=== PATIENT | female | born 1950 | race African-American/Black ===

== ENCOUNTER 2016-05-25 13:01 | Inpatient (IN) | payer OTHER ==
[~2016-05-25] VITALS: Ht 180.3 cm; Wt 98.1 kg
[~2016-05-25 13:01] MED LIST: AMOXIL500 MG PO; ATORVASTATIN CA10 MG PO; AUGMENTIN 875 M1 TAB PO; CARVEDILOL3.125 MG PO; CATAPRES TTS TOP; CELEBREX100 MG PO; ECOTRIN81 MG PO; FUROSEMIDE20 MG PO; GABAPENTIN100 MG PO; GLIMEPIRIDE4 MG PO; JANUMET 1000 MG1 TAB PO; JANUVIA 100MG100 MG PO; LANTUS SOLOS100 U/ML PO; METFORMIN HYD1000 MG PO; MULTIVITAMIN1 TAB PO; NEURONTIN300 MG PO; PANTOPRAZOLE SO40 MG PO; PERCOCET 325 MG1 TA2 PO; PROTONIX 40MG T40 MG PO; SLOW FE45 MG PO; TYLENOL #31 TAB PO; UNIRETIC 25 MG-1 TAB PO
--- NOTE | 2016-05-25 13:11 | ED DYSPNEA/ASTHMA COMPLAINT ---
History of Present Illness General Chief Complaint: Dyspnea (COPD, CHF, Other) Stated Complaint: SOB Source: patient, old records Exam Limitations: no limitations Allergies Coded Allergies: NO KNOWN ALLERGIES (10/06/14) Reconcile Medications Carvedilol (Coreg) 12.5 MG TABLET 1 TAB PO BID HTN (Reported) Clonidine (Catapres) 0.2 MG TABLET 1 TAB PO DAILY HTN (Reported) Ferrous Sulfate (Feosol) 325 MG (65 MG IRON) TABLET 1 TAB PO DAILY IRON DEF. ANEMIA (Reported) Furosemide 20 MG TAB 1 TAB PO DAILY DIURETIC (Reported) Gabapentin (Neurontin) 300 MG CAP 1 CAP PO TID DIABETES (Reported) Glimepiride (Amaryl) 4 MG TABLET 1 TAB PO DAILY DIABETES (Reported) Loratadine (Claritin) 10 MG TABLET 1 TAB PO DAILY ALLERGIES (Reported) Montelukast Sodium (Singulair) 10 MG TABLET 1 TAB PO DAILY SOB (Reported) Pantoprazole Sodium (Protonix) 40 MG TAB 1 TAB PO DAILY GI (Reported) Triage Nurses Notes Reviewed? yes Onset: Gradual Duration: day(s): (3-4), constant Timing: recent history Severity: moderate Activities at Onset: activity, rest Prior Episodes/Possible Cause: occasional episodes Modifying Factors: Improves With: rest. Worsens With: movement. Associated Symptoms: weakness HPI: 65-year-old female with history of hypertension diabetes COPD presents to the ER today complaining of exertional dyspnea for the past 3-4 days associated with worsening leg edema and a 10 pound weight gain. She was recently taken off of her diuretic she states due to kidney problems. Patient states her dyspnea is worse with exertion and laying flat. She is not O2 dependent, she does not smoke. Symptoms are better at rest. 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 There are no other modifying factors or associated symptoms (VANESSA BENAVIDES) Vital Signs & Intake/Output Vital Signs & Intake/Output Vital Signs Date Time Temp Pulse Resp B/P Pulse O2 O2 Flow FiO2 Ox Delivery Rate 05/25 1631 96.6 63 18 199/75 99 Room Air 05/25 1451 93 Room Air 05/25 1320 160/84 05/25 1311 97.6 70 24 97 Room Air Past History Travel History Traveled to [place] past 21 day No Medical History Any Pertinent Medical History? see below for history EENT: NONE Cardiovascular: hypertension, hyperlipidemia Respiratory: bronchitis Gastrointestinal: GERD, APPENDICITIS Musculoskeletal: sciatica, ARTHRITIS LOW BACK PAIN WITH Endocrine: diabetes Blood Disorders: anemia Surgical History Surgical History: CYST REMOVAL FROM BREAST Psychosocial History What is your primary language [place]ian Tobacco Use: Quit >30 days ago Family History Family History, If Any: SON Hypertension SISTER FH: diabetes mellitus, Onset: 60+. FH: myocardial infarction Hx Contributory? No (VANESSA BENAVIDES) Review of Systems Review of Systems Constitutional: Reports: see HPI. All Other Systems: Reviewed and Negative Comments Review of systems: See HPI, All other systems negative. Constitutional, no chills no fever, no malaise HEENT: No visual changes no sore throat no congestion Cardiovascular: No chest pain , no palpitation Skin, no rashes, no change in skin Respiratory: No dyspnea no cough no sputum GI: No nausea no vomiting, no diarrhea, : No dysuria Muscle skeletal: No joint pain, no back pain, no neck pain, Neurologic: No numbness no headache Psych: No stress Heme/endocrine: No bruising no bleeding Immunology: No lymphadenopathy (VANESSA BENAVIDES) Physical Exam Physical Exam General Appearance: well developed/nourished, alert, awake Respiratory: normal breath sounds, chest non-tender Comments: Well-developed well-nourished person in no acute distress HEENT: Normal EENT exam; PERRL, EOMI, HEAD is atraumatic. moist mucous membranes. Neck: Supple, normal range of motioN Back: Nontender, Full range of motion Cardiovascular: Regular rate and rhythms no murmurs rubs Respiratory: No respiratory distress. Patient speaking in full complete sentences. Breath sounds clear to auscultation bilaterally: NO W/R/R Abdomen: Soft, nontender nondistended, no appreciable organomegaly. Normal bowel sounds. No rebound/guarding, Extremity: No edema, full range of motion of extremities Neuro: Alert oriented x3, motor sensory normal. There were no obvious focal neurologic abnormalities. Skin: No appreciable rash on exposed skin, skin is warm and dry. Psych: Mood and affect is normal, memory and judgment is normal. Core Measures ACS in differential dx? Yes Severe Sepsis Present: No Septic Shock Present: No (VANESSA BENAVIDES) Progress Differential Diagnosis: asthma, AMI, bronchitis, costochondritis, CHF, COPD, musculoskeletal pain, pericarditis, pulmonary embolism, pneumonia, pneumothorax, unstable angina Diagnostic Imaging: Viewed by Me: Radiology Read. Discussed w/RAD: Radiology Read. Radiology Impression: ATIENT: DWAYNE COX PRESENT AGE: 65 PATIENT ACCOUNT NO: [id number] : 52 LOCATION: [facility] ORDERING PHYSICIAN: VANESSA FIELD SERVICE DATE: 05/25/16 EXAM TYPE: RAD - XRY- PORTABLE CHEST XRAY EXAMINATION: XR PORTABLE CHEST CLINICAL INFORMATION: Dyspnea and leg swelling. Assess for congestive heart failure. COMPARISON: None. TECHNIQUE: Portable AP view of the chest was obtained. FINDINGS: The lung fuentes are well-expanded. There is no focal consolidation. The cardiac silhouette is enlarged. The central pulmonary vasculature is mildly prominent superiorly. There is no focal consolidation. No definite pleural effusions are seen. The aortic arch is calcified and unfolded. There are no acute osseous findings. IMPRESSION: 1. The study demonstrates a prominent cardiac silhouette and mild prominence of the central pulmonary vasculature, which can be consistent with congestive heart failure. 2. There is no focal consolidation. DICTATED BY: VALERIE FELIX MD DATE/TIME DICTATED:05/25/161418 SUPERVISOR BOAT OUTFITTING:TRACEY DATE/ TIME TRANSCRIBED:05/25/161418 CONFIDENTIAL, DO NOT COPY WITHOUT APPROPRIATE AUTHORIZATION. <Electronically signed in Other Vendor System> SIGNED BY: VALERIE FELIX MD 05/25/16 1424 Initial ED EKG: normal intervals, normal p-waves, normal QRS complex, normal sinus rhythm (70) Prior EKG: unchanged (02/2015) Rhythm Strip: normal sinus rhythm (VANESSA BENAVIDES) Plan of Care: Orders Procedure Date/time Status BASIC ELECTROLYTES PLUS BUN&CR 05/26 0600 Active Consistent Carbohydrate 3 05/25 D Active TROPONIN LEVEL 05/25 1930 Active EKG 05/25 1930 Active Pathway - chart 05/25 1543 Active House Staff 05/25 1543 Active Code Status 05/25 1543 Active Patient Data 05/25 1508 Active Misc Message 05/25 1507 Active ED Holding Orders 05/25 1507 Active Admit to inpatient 05/25 1507 Active Vital Signs 05/25 1507 Active Code Status 05/25 1507 Complete Intake & Output 05/25 1340 Active Telemetry/Orchestra Conductor 05/25 1313 Active TROPONIN LEVEL 05/25 1313 Complete PROTHROMBIN TIME 05/25 1313 Complete COMPREHENSIVE METABOLIC PANEL 05/25 1313 Complete CBC WITHOUT DIFFERENTIAL 05/25 1313 Complete B-TYPE NATRIURETIC PEP (BNP) 05/25 1313 Complete EKG 05/25 1310 Active Weight 05/25 UNK Active VTE Mechanical Prophylaxis 05/25 UNK Active Intake & Output 05/25 UNK Active ECHOCARDIOGRAM 05/25 UNK Active Current Medications Sig/Laure Start time Last Medication Dose Stop Time Status Admin Montelukast Sodium 10 MG AT BEDTIME 05/26 2200 AC (Singulair) Clonidine 0.2 MG DAILY 05/26 1000 AC (Catapres) Ferrous Sulfate 325 MG DAILY 05/26 1000 AC (Feosol) Omeprazole 40 MG DAILY AC 05/26 0700 AC (Prilosec) Carvedilol 12.5 MG BID 05/25 2200 AC (Coreg) Insulin Aspart 0 TIDAC 05/25 1700 AC (NovoLOG) Gabapentin 300 MG Q8 05/25 1613 AC (Neurontin) Acetaminophen 650 MG Q6P PRN 05/25 1545 AC (Tylenol) Heparin Sodium 5,000 UNIT Q8 05/25 1536 AC (Porcine) Laboratory Tests 05/25/16 1336: Anion Gap 9, Estimated GFR 50 L, BUN/Creatinine Ratio 33.6 H, Glucose 206 H, Calcium 9.6, Total Bilirubin 0.4, AST 13 L, ALT 24, Alkaline Phosphatase 119, Troponin I < 0.01, [id number]-I-[id number] Pept 854 H, Total Protein 6.8, Albumin 3.6 , Globulin 3.2, Albumin/Globulin Ratio 1.1, PT 13.5 H, INR 1.29 H, CBC w Diff NO MAN DIFF REQ, RBC 3.18 L, MCV 89.6, MCH 28.9, RDW 15.5 H, MPV 9.4, Gran % 65.8, Lymphocytes % 23.3, Monocytes % 8.3, Eosinophils % 2.0, Basophils % 0.6, Absolute Granulocytes 3.4, Absolute Lymphocytes 1.2, Absolute Monocytes 0.4, Absolute Eosinophils 0.1, Absolute Basophils 0, PUBS MCHC 32.3 L LABS ORDERED, OLD RECORDS REVIEWED. PTS H/H TODAY AT BASELINE DATING BACK THROUGH 2014, PT SPEAKING IN FULL COMPLETE SENTENCES AT THIS TIME. CASE D/W DR DEL TORO On repeat evaluation patient is resting comfortably. However with ambulation the patient's oxygen saturation dropped to 88% patient became no dyspneic improve with rest and discussed thoroughly of her lab results and need for admission case was discussed with Dr. GRAVES will admit (VANESSA BENAVIDES) Departure Departure Time of Disposition: 1509 Disposition: STILL A PATIENT Condition: Stable Clinical Impression Primary Impression: Acute exacerbation of CHF (congestive heart failure) Referrals: DESIRE SEBASTIAN APRN (PCP/Family) Departure Forms: Customer Survey General Discharge Information Admission Note Spoke With: VILMA GRAVES MD Documentation of Exam: Documentation of any treatments & extenuating circumstances including Concerns Regarding Discharge (functional status, medication knowledge or non-compliance, living conditions, etc.) that warrant an admission rather than observation: Trend labs cardiology consult IV diuresis premature discharge would BE medically harmful as the patient desaturated on room air with exertion to 88% (VANESSA BENAVIDES) PA/ANALOG DEVICE DESIGNER Co-Sign Statement Statement: ED Attending supervision documentation- [] I saw and evaluated the patient. I have also reviewed all the pertinent lab results and diagnostic results. I agree with the findings and the plan of care as documented in the PA's/ANALOG DEVICE DESIGNER's documentation. [X] I have reviewed the ED Record and agree with the PA's/ANALOG DEVICE DESIGNER's documentation. [] Additions or exceptions (if any) to the PAs/ANALOG DEVICE DESIGNER's note and plan are summarized below: [] (ALBERT BOWMAN,WHITLEY Rodriguez) Critical Care Note Critical Care Note Critical Care Time: non-applicable (VANESSA BENAVIDES)
[2016-05-25 13:45] LABS: ABSOLUTE BASOPHIL COUNT 0 /CUMM (0.0-0.2); ABSOLUTE EOSINOPHIL COUNT 0.1 /CUMM (0.0-0.7); ABSOLUTE MONOCYTE COUNT 0.4 /CUMM (0.10-0.60); BASOPHIL % 0.6 % (0.0-2.0); MEAN CORPUSCULAR HGB 28.9 PG (27.0-31.0); MEAN CORPUSCULAR HGB CONC 32.3 G/DL (33.0-37.0); PLATELET COUNT 241 /CUMM (130-400)
[2016-05-25 13:54] LABS: ABSOLUTE GRANULOCYTE CT 3.4 /CUMM (1.4-6.5); ABSOLUTE LYMPH COUNT 1.2 /CUMM (1.2-3.4); GRANULOCYTE % 65.8 % (42.2-75.2); HEMATOCRIT 28.5 % (37-47); MEAN CORPUSCULAR VOLUME 89.6 FL (81.0-99.0); MEAN PLATELET VOLUME 9.4 FL (7.4-10.4); RBC DISTRIBUTION WIDTH 15.5 % (11.5-14.5); RED BLOOD CELL CT 3.18 /CUMM (4.20-5.40); WHITE BLOOD CELL COUNT 5.2 /CUMM (4.8-10.8)
[2016-05-25 13:58] LABS: PT 13.5 SEC (9.4-12.5)
[2016-05-25] MEDS ORDERED: MONTELUKAST SOD10 M1 PO (14:19)
[2016-05-25] MEDS ORDERED: CATAPRES0.2 MG PO (14:19)
[2016-05-25] MEDS ORDERED: LEXAPRO10 M1 PO ×2 (14:19→17:51)
--- NOTE | 2016-05-25 14:24 | RADIOLOGY REPORT ---
EXAMINATION: XR PORTABLE CHEST CLINICAL INFORMATION: Dyspnea and leg swelling. Assess for congestive heart failure. COMPARISON: None. TECHNIQUE: Portable AP view of the chest was obtained. FINDINGS: The lung fuentes are well-expanded. There is no focal consolidation. The cardiac silhouette is enlarged. The central pulmonary vasculature is mildly prominent superiorly. There is no focal consolidation. No definite pleural effusions are seen. The aortic arch is calcified and unfolded. There are no acute osseous findings. IMPRESSION: 1. The study demonstrates a prominent cardiac silhouette and mild prominence of the central pulmonary vasculature, which can be consistent with congestive heart failure. 2. There is no focal consolidation.
--- NOTE | 2016-05-25 15:06 | History & Physical ---
SAMUEL BOWMAN,[facility] [place] [facility] [place]/25/16 1506: General Information and HPI MD Statement: I have seen and personally examined DWAYNE MACK and documented this H&P. The patient is a 65 year old F who presented with a patient stated chief complaint of dyspnea on exertion. Source of Information: patient, old records Exam Limitations: no limitations History of Present Illness: Ms. Mack is a morbidly obese 65 y/o F with PMHx of HTN, HLD and T2DM c/b retinopathy and neuropathy who presents with a 2-week history of leg swelling and a 2-day history of dyspnea on exertion and wheezing. Patient reports that approximately 2 weeks prior to current presentation she presented to her PCP with morning headaches that had been ongoing for 2 months. Blood work was performed which revealed abnormal kidney function and she was subsequently taken off the moexipril-HCTZ that she had been taking for multiple years. Since then, patient has noted worsening leg swelling as well as an approximately 15-lbs weight gain. For the past 4 days leading up to current presentation, patient has been feeling short of breath after walking only five feet. Patient has orthopnea at baseline and usually sleeps in the chair but orthopnea has worsened during this time. For the past two days patient has had two episodes of stinging chest pain lasting about half a second. She also endorses episodes of dizziness. She has a history of bronchitis and allergies and has chronic nasal congestion, post -nasal drip and cough productive of greyish sputum at baseline. Patient reports that in 1994 she was told that she has heart problems and advised to follow up with a catalogue maker but she never did. Family history is positive for IN and CHF in her sister who of heart disease in her 60s. Most recent ECHO was performed in September 2014 for pre-operative clearance for exploratory laparotomy and showed LVEF >65% and stage 1 diastolic dysfunction. She denies fever, chills , abdominal pain, nausea, vomiting or urinary symptoms. Allergies/Medications Allergies: Coded Allergies: NO KNOWN ALLERGIES (10/06/14) Home Med list Carvedilol (Coreg) 12.5 MG TABLET 1 TAB PO BID HTN (Reported) Clonidine (Catapres) 0.2 MG TABLET 1 TAB PO DAILY HTN (Reported) Escitalopram Oxalate (Lexapro) 10 MG TABLET 1.5 TAB PO AT BEDTIME depression (Reported) Ferrous Sulfate (Feosol) 325 MG (65 MG IRON) TABLET 1 TAB PO DAILY IRON DEF. ANEMIA (Reported) Furosemide 20 MG TAB 1 TAB PO DAILY DIURETIC (Reported) Gabapentin (Neurontin) 300 MG CAP 1 CAP PO TID DIABETES (Reported) Glimepiride (Amaryl) 4 MG TABLET 1 TAB PO DAILY DIABETES (Reported) Loratadine (Claritin) 10 MG TABLET 1 TAB PO DAILY ALLERGIES (Reported) Loratadine (Claritin) 10 MG TABLET 1 TAB PO DAILY ALLERGIES (Reported) Montelukast Sodium (Singulair) 10 MG TABLET 1 TAB PO DAILY SOB (Reported) Pantoprazole Sodium (Protonix) 40 MG TAB 1 TAB PO DAILY GI (Reported) Past History Travel History Traveled to [place] past 21 day No Medical History Neurological: peripheral neuropathy EENT: allergies, diabetic retinopathy Cardiovascular: hypertension, hyperlipidemia Respiratory: bronchitis Gastrointestinal: GERD, appendicitis, ventral hernia Renal: abnormal kidney function Musculoskeletal: sciatica, arthritis Psychiatric: depression Endocrine: diabetes Blood Disorders: anemia Surgical History Surgical History: appendectomy, hernia repair-ventral, cyst removal from breast, exploratory laparotomy Past Family/Social History Family History Relations & Conditions if any SON Hypertension SISTER, , Age 60+; Cause: Heart disease. FH: CHF (congestive heart failure) FH: diabetes mellitus, Onset: 60+. FH: myocardial infarction BROTHER FH: diabetes mellitus GRANDFATHER FH: diabetes mellitus Psychosocial History Where do you live? Home Who Do You Live With? self Services at Home: Home Health Aide Primary Language: Ivorian Smoking Status: Former Smoker (Quit 24 Yrs Ago, ~16 Pack-Yrs) ETOH Use: denies use (Quit 24 Years Ago) Illicit Drug Use: cocaine (Quit 24 Years Ago), marijuana (Quit 24 Years Ago) Functional Ability ADLs Independent: dressing, eating, toileting, bathing. Ambulation: cane IADLs Independent: finances, food prep, telephone, transportation, medication admin. Needs Assist: shopping, housework. 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 EENTM: Reports: nasal congestion. Denies: throat swelling. Cardiovascular: Reports: chest pain, orthopena, peripheral edema. Denies: palpitations. Respiratory: Reports: cough, sputum production (chronic). GI: Denies: abdominal pain, constipation, diarrhea, nausea, vomiting. Genitourinary: Reports: no symptoms. Musculoskeletal: Reports: no symptoms. Skin: Reports: no symptoms. Neurological/Psychological: Reports: no symptoms. Hematologic/Endocrine: Reports: no symptoms. Immunologic/Allergic: Reports: no symptoms. All Other Systems: Reviewed and Negative Exam & Diagnostic Data Last 24 Hrs of Vital Signs/I&O Vital Signs Date Time Temp Pulse Resp B/P Pulse O2 O2 Flow FiO2 Ox Delivery Rate 05/25 1451 93 Room Air 05/25 1320 160/84 05/25 1311 97.6 70 24 97 Room Air Physical Exam General Appearance Alert, Oriented X3, No Acute Distress HEENT Atraumatic, Mucous Membr. moist/pink Neck Supple, No JVD, No LAD Cardiovascular Regular Rate, Normal S1, Normal S2, Grade 2/6 Systolic Murmur Lungs Clear to Auscultation Abdomen Soft, No Tenderness, Positive Bowel Sounds Extremities No Clubbing, No Cyanosis, Trace Edema on Bilateral Lower Extremities and Changes Consistent with Chronic Venous Stasis Last 24 Hrs of Labs/Martinez: Laboratory Tests 05/25/16 1940: Troponin I < 0.01 05/25/16 1336: Anion Gap 9, Estimated GFR 50 L, BUN/Creatinine Ratio 33.6 H, Glucose 206 H, Calcium 9.6, Total Bilirubin 0.4, AST 13 L, ALT 24, Alkaline Phosphatase 119, Troponin I < 0.01, Anv-J-Btbfmnebtrb Pept 854 H, Total Protein 6.8, Albumin 3.6 , Globulin 3.2, Albumin/Globulin Ratio 1.1, Vitamin B12 > 1000 H, TSH 1.740, Free T4 1.10, PT 13.5 H, INR 1.29 H, CBC w Diff NO MAN DIFF REQ, RBC 3.18 L, MCV 89.6, MCH 28.9, RDW 15.5 H, MPV 9.4, Gran % 65.8, Lymphocytes % 23.3, Monocytes % 8.3, Eosinophils % 2.0, Basophils % 0.6, Absolute Granulocytes 3.4, Absolute Lymphocytes 1.2, Absolute Monocytes 0.4, Absolute Eosinophils 0.1, Absolute Basophils 0, PUBS MCHC 32.3 L Diagnostic Data EKG Results Normal sinus rhythm HR 62 T wave inversion in anterior leads, unchanged from prior QTc 459 CXR Results 1. The study demonstrates a prominent cardiac silhouette and mild prominence of the central pulmonary vasculature, which can be consistent with congestive heart failure. 2. There is no focal consolidation. Assessment/Plan Assessment: 65 y/o morbidly obese F with PMHx of HTN, HLD, T2DM c/b retinopathy and peripheral neuropathy who presents with a 2-week history of leg swelling and a 2 -day history of dyspnea on exertion and wheezing. #DEAL/leg edema: SOB could potentially represent mild CHF in view of associated leg edema and recent 15-lbs weight gain as well as significant risk factors including morbid obesity, T2DM, HLD and HTN, however patient does not any overt signs of volume overload on exam including crackles, JVD or significant lower extremity edema (only trace edema on exam) and proBNP is only 854. Most recent ECHO in September 2014 with LVEF >65% and stage 1 diastolic dysfunction. Other potential etiologies for the SOB include obstructive sleep apnea given reported history of difficulty breathing during sleep, ACS given episodes of fleeting chest pain, anemia given history of iron deficiency anemia and bronchitis. Leg edema could be secondary to CHF but could also represent chronic venous insufficiency. Currently satting >95% on room air. Troponin negative. EKG without ST-T wave abnormalities. * Admit to telemetry. * Cardiology consult in the AM. * Strict I/Os and daily weights. * Start Lasix 20 mg IV BID. * Monitor kidney function. * ECHO ordered to evaluate for cardiac structure and function. * Serial troponins and EKG to rule out ACS. * TRC and nebs. * Check ambulatory oxygen saturation. #HTN: BP elevated to 199/75. Takes carvedilol 12.5 mg PO BID and clonidine 0.2 mg PO daily. Moexipril-HCTZ recently stopped by PCP 2/2 abnormal kidney function. * Continue prior to admission medications carvedilol 12.5 mg PO BID and clonidine 0.2 mg PO daily. * Start lisinopril 10 mg PO daily in the AM in view of her history of diabetes. #Non-insulin dependent T2DM: Takes glimepride 4 mg PO daily as outpatient. * Hold oral hypoglycemic agents while inpatient. * Accu-checks and low dose sliding scale Novolog TIDAC. #Depression: * Continue prior to admission Lexapro 15 mg PO QHS. #Allergic rhinitis: * Continue prior to admission Claritin in the AM and Singulair 10 mg PO at bedtime. #Iron deficiency anemia: H/H 9.2/28.5 on admission which appears to be baseline for patient. * Continue prior to admission ferrous sulfate 325 mg PO daily. Diet: Consistent Carbohydrate 3 DVT PPx: HSQ and ALPs CODE: FULL As Ranked By This Provider Problem List: 1. Dyspnea on exertion 2. Hypertension 3. Hyperlipidemia 4. Bilateral lower extremity edema 5. Non-insulin dependent type 2 diabetes mellitus 6. Allergic rhinitis 7. Essential hypertension 8. Acute diastolic CHF (congestive heart failure) 9. (HFpEF) heart failure with preserved ejection fraction 10. Depression Core Measures/Miscellaneous Acute Coronary Syndrome ACS Diagnosis: No Cerebrovascular Accident CVA/TIA Diagnosis: No Congestive Heart Failure CHF Diagnosis: Yes Date of most recent Echo: 10/06/14 Last Known EF %: 65 (>65%) COLT/ARB for EF <40%: Yes (EF >65%) Venous Thromboembolism VTE Risk Factors: Acute medical illness, Age > 40, CHF or Resp failure, Obesity, Varicose veins [facility] prophylaxis d/t: No contraindications No VTE Pharm Prophylaxis d/t: No contraindications VTE Diagnosis: No VTE Type: NONE VTE Confirmed by (Test): NONE Severe Sepsis Severe Sepsis Present: No Septic Shock Septic Shock Present: No Miscellaneous Documentation Attending Case Discussed With: SHAYLA TAYLOR MD Primary Care Physician: DESIRE SEBASTIAN APRN Patient sees these Specialists N/A Level of Patient Care: Telemetry ALEXUS PHELPS MD 05/25/16 1752: Resident Review Statement Resident Statement: examined this patient, discussed with fall internship, agreed with fall internship, reviewed EMR data (avail), reviewed images, amended to note Other Findings: This is 65-year-old morbidly obese female with past medical history of hypertension, hyperlipidemia, diastolic heart failure, 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 Patient was evaluated by her PCP 2 weeks prior to admission and on routine blood workup noted abnormal kidney function and was told to stop taking ACEI/HCTZ. On follow-up appointment in one week patient noted gaining about 15 pounds (last weight was 310 pounds). Patient reports that for past 4 days she is more short of breath especially on exertion with 2 episode of 16 G chest pain which lasted for a few seconds and resolved spontaneously. Patient reports getting short of breath even after 5 feet ambulation which is new compared to her baseline. She also reports orthopnea which is chronic but claims has required to properly up her head position more for past few days. She also reported leg swelling and bilateral lower extremity heaviness. She also have baseline orthopnea and sleeps in chair but claims has to propt head level more for past 2 days. Denies any recent URI, palpitation, abd. pain, n/v/d, urinary symptoms. Her vitals on admission were T 97.6, HR 70, RR 24, BP 160/84, O2 sat 98% on room air. On physical exam patient is alert oriented 3 in no acute distress, HEENT PERRLA EOMI, neck supple without elevated JVD, lungs clear on auscultation, heart S1-S2 normal with grade 2/6 systolic ejection murmur at second right intercostal space radiating to bilateral carotids, abdomen soft nontender nondistended with preserved bowel sounds, trace peripheral edema, evidence of an large varicose vein, no focal gross neuro deficit. Labs were significant for H&H 9.2/28.5 (baseline 12/13.6 in November 2015), BUN 37, creatinine 1.1, blood glucose 206, troponin negative, proBNP 854, INR 1.29 Her EKG revealed normal sinus rhythm at rate of 62, previously noted T-wave inversion in anterior leads unchanged, QTC 459 Chest x-ray revealed prominent cardiac silhouette the and mild prominence of the central pulmonary vascular without any focal consolidation. Assessment and plan: This is 65 year old morbidly obese female with past medical history of hypertension, diastolic heart failure, hyperlipidemia, type 2 diabetes complicated with retinopathy and peripheral neuropathy, iron deficiency anemia, GERD presented with progressively worsening shortness of breath on exertion with associated 15 pound weight gain and lower extremity edema and orthopnea for past 4 days after stopping her COLT inhibitor HCTZ combination pill 2 weeks ago. 1. Shortness of breath Likely multifactorial including diastolic heart failure but possibility of underlying acute coronary event, sleep apnea resulting in right heart failure or physical deconditioning due to her morbid obesity cannot be ruled out Admit to telemetry - Continue IV Lasix 20 mg twice a day - Strict ARTURO's and daily weight - Echocardiogram - Cardiology consult - Serial troponin and EKG to rule out underlying ACS - Patient may need outpatient sleep study evaluation for possible underlying sleep apnea - TRC 2. Hypertension - Restart patient's home medication including Coreg 12.5 twice a day - Continue clonidine 0.2 mg daily - We'll consider to restart COLT inhibitor considering patient history of diabetes and not significant renal dysfunction - Monitor kidney function closely 3. Type 2 diabetes - Hold oral hypoglycemic agent - Start NovoLog sliding scale - Monitor blood sugar prior to meal 4. Peripheral diabetic neuropathy - Continue gabapentin 300 mg 3 times a day 5. History of allergic bronchitis - Continue Singulair - TRC 6. Depression Continue Lexapro 15 mg at bedtime 7. DVT prophylaxis Subcutaneous heparin 8. Full code SHAYLA TAYLOR MD 05/25/16 5857: Attending MD Review Statement Attending Statement Attending MD Statement: examined this patient, discuss w/resident/PA/ROLL WEIGHER, agreed w/resident/PA/ROLL WEIGHER, reviewed EMR data (avail), reviewed images, amended to note Attending Assessment/Plan: The patient is a 65 yo female with h/o DM2, HTN, diastolic dysfunction, & HL who presented on the day of admission with c/o 2 day h/o progressive exertional dyspnea with ?wheeze. She also noted increasing lower extremity edema in spite of po Furosemide. She saw here PCP recently and noted increased creatinine and her usual antihypertensive (univasc) was discontinued. Prior ECHO in 2014 did show some diastolic dysfunction with normal systolic function. She did describe some fleeting chest pain and orthopnea. Physical Exam: VS: 97.6, P 70, R 24, BP 160/84, PO 93% RA HEENT: eyes- PERRLA, EOMI gurvinder- dry mucosa Neck: no JVD or adenopathy Chest: diminished breath sounds diffusely, no wheeze, rhonchi or rales Abd: BS+, soft NT, obese Ext: tr-1+edema w/o tenderness, pulses 2+ Neuro: non-focal, alert & oriented x 3 Labs/Tests- as above. Impression/Plan: #Exertional Dyspnea- may be related to diastolic CHF, however concern regarding potential ischemia. Has no chest pain on my exam, however has had some fleeting pains that may be associated with exertion. Plan: Admit to telemetry. Check serial troponin I levels and EKG if any chest pain. Cardiology consult- seen by Dr. Ruiz previously . Check ambulatory pule oximetry. #CHF- presumed acute diastolic (EF preserved) CHF. The patient may also have right sided failure. Plan: Will treat with IV furosemide (given in ED) I/O's, daily weights CHF education. Check ECHO. Await Cardiology consult. #Essential HTN- on Carvedilol. Plan: Continue Carvedilol and follow. #DM2- on glimeprimide as OP. Plan: Will follow sugars via glucoscan and administer insulin as needed.
[2016-05-25 15:30] VITALS: BP 142/78
[2016-05-25] MEDS ORDERED: COREG12.5 M1 PO (16:10)
[2016-05-25] MEDS ORDERED: FEOSOL325 MG PO (16:11)
[2016-05-25] MEDS ORDERED: SINGULAIR10 M1 PO (16:12)
[2016-05-25] MEDS ORDERED: CLARITIN10 M1 PO (16:12)
[2016-05-25] MEDS ORDERED: AMARYL4 M1 PO (16:12)
--- NOTE | 2016-05-25 22:49 | Admission Certification ---
Admission Certification Certification Statement - As attending physician, I certify that at the time of - admission, based on clinical presentation, severity of - symptoms, need for further diagnostic testing and - therapeutic interventions, and risk of adverse outcomes - without in-hospital treatment, in my clinical assessment, - this patient requires an acute hospital stay for a minimum - of two nights or longer. I have also considered psychsocial - factors such as support system, advanced age, financial - issues, cognitive issues, and failed out-patient treatments, - past re-admission history, safety of patient, and lack of - compliance as applicable. Specific rationale supporting this admission is: The patient presents in the ED with progressive increasing exertional dyspnea along with lower extremity edema, elevated BNP and CXR c/w CHF. Will admit to telemetry and check troponin levels. IV Lasix, daily weights, Cardiology consult.
[2016-05-25 23:16] VITALS: BP 166/90
[2016-05-26 04:18] VITALS: BP 132/74
--- NOTE | 2016-05-26 07:33 | PN- Housestaff ---
See Addendum Subjective Follow-up For: Dyspnea on exertion Acute diastolic CHF Tele-Events Since Last Visit: Sinus rhythm HR 56-61 No overnight events Subjective: No acute events overnight. Patient seen and examined this morning. SOB has improved. Patient has been ambulating without significant dyspnea. She denies chest pain or palpitations. Results of recent lab work were obtained from Edis Barone APRN's office. Patient had BUN/creatinine 38/1.43 on 05/17/16. Ambulatory oxygen saturation was 97%. Review of Systems Constitutional: Reports: see HPI. Objective Last 24 Hrs of Vital Signs/I&O Vital Signs Date Time Temp Pulse Resp B/P Pulse O2 O2 Flow FiO2 Ox Delivery Rate 05/26 0418 98.2 62 20 132/74 100 Room Air 05/26 0000 96 Room Air 05/25 2316 98.6 65 24 166/90 96 Room Air 05/25 2256 60 166/90 05/25 1949 63 199/75 05/25 1900 Room Air Room Air 05/25 1631 96.6 63 18 199/75 99 Room Air 05/25 1530 99.1 64 20 142/78 100 Room Air 05/25 1451 93 Room Air 05/25 1320 160/84 05/25 1311 97.6 70 24 97 Room Air Intake & Output 05/26 1600 05/26 0800 05/26 0000 Intake Total 200 480 Output Total 400 Balance -200 480 Intake, Oral 200 480 Number 0 Bowel Movements Output, Urine 400 Patient 142.428 kg 129.274 kg Weight Physical Exam General Appearance: Alert, Oriented X3, No Acute Distress HEENT: Atraumatic, Mucous Membr. moist/pink Cardiovascular: Regular Rate, Normal S1, Normal S2 Lungs: Clear to Auscultation Abdomen: Soft, No Tenderness, Positive Bowel Sounds, Obese Extremities: No Clubbing, No Cyanosis, Trace Edema on Bilateral Lower Extremities Current Medications: Current Medications Sig/Laure Start time Last Medication Dose Route Stop Time Status Admin Acetaminophen 650 MG Q6P PRN 05/25 1545 AC PO Carvedilol 12.5 MG BID 05/25 2199 AC PO Carvedilol 12.5 MG ONCE ONE 05/25 1730 DC 05/25 PO 05/25 1730 194 Clonidine 0.2 MG DAILY 05/26 1000 AC PO Escitalopram Oxalate 15 MG AT BEDTIME 05/25 2199 AC 05/25 PO 2255 Ferrous Sulfate 325 MG DAILY 05/26 1000 AC PO Furosemide 0 .STK-MED ONE 05/25 1516 DC IV Furosemide 20 MG ONCE ONE 05/25 1515 DC 05/25 IV 05/25 1516 1518 Gabapentin 300 MG Q8 05/25 1613 AC 05/26 PO 0613 Heparin Sodium 5,000 UNIT Q8 05/25 1536 AC 05/26 (Porcine) SC 0613 Influenza Virus 0.5 ML ONCE ONE 05/25 2100 DC Vaccine IM 05/25 2101 Insulin Aspart 0 TIDAC 05/25 1700 AC 05/26 SC 0841 Lisinopril 10 MG DAILY 05/26 1000 AC PO Montelukast Sodium 10 MG AT BEDTIME 05/26 2200 AC PO Omeprazole 40 MG DAILY AC 05/26 0700 AC 05/26 PO 0613 Last 24 Hrs of Lab/Martinez Results Last 24 Hrs of Labs/Mics: Laboratory Tests 05/26/16 0636: Anion Gap 10, Estimated GFR 45 L, BUN/Creatinine Ratio 29.2 H 05/26/16 0100: Troponin I < 0.01 05/25/16 1940: Troponin I < 0.01 05/25/16 1336: Anion Gap 9, Estimated GFR 50 L, BUN/Creatinine Ratio 33.6 H, Glucose 206 H, Calcium 9.6, Total Bilirubin 0.4, AST 13 L, ALT 24, Alkaline Phosphatase 119, Troponin I < 0.01, Clo-A-Rwfvaeuycif Pept 854 H, Total Protein 6.8, Albumin 3.6 , Globulin 3.2, Albumin/Globulin Ratio 1.1, Vitamin B12 > 1000 H, TSH 1.740, Free T4 1.10, PT 13.5 H, INR 1.29 H, CBC w Diff NO MAN DIFF REQ, RBC 3.18 L, MCV 89.6, MCH 28.9, RDW 15.5 H, MPV 9.4, Gran % 65.8, Lymphocytes % 23.3, Monocytes % 8.3, Eosinophils % 2.0, Basophils % 0.6, Absolute Granulocytes 3.4, Absolute Lymphocytes 1.2, Absolute Monocytes 0.4, Absolute Eosinophils 0.1, Absolute Basophils 0, PUBS MCHC 32.3 L Orders ECHO Findings: 1. This was a technically difficult and limited study due to the patient's body habitus. 2. Aortic sclerosis is present with no valvular stenosis or insufficiency. 3. Mitral leaflet thickening is present with moderate anular calcfiication and mild mitral insufficiency with mild to moderate left atrial enlargement. 4. A very small pericardial effusion is present. 5. The left ventricular chamber size and systolic function appear normal. Moderate concentric hypertrophy is present with LV diastolic dysfunction. 6. The right heart structures were not optimally visualized. The RV systolic pressure could not be accurately assessed. Assessment/Plan Assessment: 65 y/o F with PMHx of HTN, T2DM and diastolic dysfunction who presents with progressively worsening dyspnea on exertion x2 days, likely secondary to acute diastolic CHF. #Acute diastolic CHF: SOB improved today. Patient continues to sat well on room air. Ambulatory sat 97%. ECHO with normal LVEF estimated at 60-65% and stage 3 diastolic dysfunction, worsened from prior ECHO in September 2014 with stage 1 diastolic dysfunction. Serial EKG and troponins negative. * Continue telemetry. * Cardiology consulted. Appreciate their recs. * Strict I/Os and daily weights. * Monitor kidney function. * Continue Lasix 20 mg IV BID. #HTN: BP continues to be high, elevated to a maximum of 180/90. * Continue prior to admission medications carvedilol 12.5 mg PO BID and clonidine 0.2 mg PO daily. * Continue lisinopril 10 mg PO daily. * Appreciate cardiology input on whether clonidine can be switched to another medication. #T2DM: Takes glimepride 4 mg PO daily as outpatient. * Hold oral hypoglycemic agents while inpatient. * Accu-checks and low dose sliding scale Novolog TIDAC. Diet: Consistent Carbohydrate 3 DVT PPx: HSQ and ALPs CODE: FULL Problem List: 1. Acute diastolic CHF (congestive heart failure) 2. Non-insulin dependent type 2 diabetes mellitus 3. Dyspnea on exertion 4. Essential hypertension 5. (HFpEF) heart failure with preserved ejection fraction Pain Ratin Pain Location: N/A Pain Goal: Remain pain free Pain Plan: Gabapentin 300 mg PO Q8 Tylenol 650 mg PO Q6H PRN for mild pain (scale 1-3) Tomorrow's Labs & Rationales: BMP to monitor lytes and kidney function in the setting of BRENDA and diuresis Discharge Plan Discharge Disposition: home Anticipated Discharge (Day): tomorrow
[2016-05-26 08:00] VITALS: BP 180/90
--- NOTE | 2016-05-26 11:34 | Cons- Cardiology ---
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 She presented to ER with complaint of bilateral lower extremity heaviness, breathing difficulty, wheezing and pounds weight gain in one week. Patient had blood work by PCP 2 weeks ago that showed worsening of renal function and she was advised to stop taking lisinopril/ hydrochlorothiazide, naproxen and Janumet. Patient was recently having upper respiratory symptoms and she was advised to drink a lot of water. Patient complains of intermittent sharp chest pain lasting for a few seconds. 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 According to patient she always avoid salt but recently drinking a lot of water because of upper respiratory tract infection. She has a strong family history of coronary artery disease in her grandmother and 2 brothers. Allergies/Medications Allergies: Coded Allergies: NO KNOWN ALLERGIES (10/06/14) Home Med List: Carvedilol (Coreg) 12.5 MG TABLET 1 TAB PO BID HTN (Reported) Clonidine (Catapres) 0.2 MG TABLET 1 TAB PO DAILY HTN (Reported) Escitalopram Oxalate (Lexapro) 10 MG TABLET 1.5 TAB PO AT BEDTIME depression (Reported) Ferrous Sulfate (Feosol) 325 MG (65 MG IRON) TABLET 1 TAB PO DAILY IRON DEF. ANEMIA (Reported) Furosemide 20 MG TAB 1 TAB PO DAILY DIURETIC (Reported) Gabapentin (Neurontin) 300 MG CAP 1 CAP PO TID DIABETES (Reported) Glimepiride (Amaryl) 4 MG TABLET 1 TAB PO DAILY DIABETES (Reported) Loratadine (Claritin) 10 MG TABLET 1 TAB PO DAILY ALLERGIES (Reported) Montelukast Sodium (Singulair) 10 MG TABLET 1 TAB PO DAILY SOB (Reported) Pantoprazole Sodium (Protonix) 40 MG TAB 1 TAB PO DAILY GI (Reported) Current Medications: Current Medications Sig/Laure Start time Last Medication Dose Route Stop Time Status Admin Acetaminophen 650 MG Q6P PRN 05/25 1545 AC 05/26 PO 0848 Carvedilol 12.5 MG BID 05/25 2200 AC 05/26 PO 0848 Carvedilol 12.5 MG ONCE ONE 05/25 1730 DC 05/25 PO 05/25 1731 1949 Clonidine 0.2 MG DAILY 05/26 1000 AC 05/26 PO 0848 Escitalopram Oxalate 15 MG AT BEDTIME 05/25 2200 AC 05/25 PO 2255 Ferrous Sulfate 325 MG DAILY 05/26 1000 AC 05/26 PO 0848 Furosemide 20 MG ONCE ONE 05/26 0900 DC IV 05/26 0901 Furosemide 0 .STK-MED ONE 05/25 1516 DC IV Furosemide 20 MG ONCE ONE 05/25 1515 DC 04/ IV 05/25 1516 1518 Gabapentin 300 MG Q8 05/25 1613 AC 05/26 PO 0613 Heparin Sodium 5,000 UNIT Q8 05/25 1536 AC 05/26 (Porcine) SC 0613 Influenza Virus 0.5 ML ONCE ONE 05/25 2100 DC Vaccine IM 05/25 2101 Insulin Aspart 0 TIDAC 05/25 1700 AC 05/26 SC 0841 Lisinopril 10 MG DAILY 05/26 1000 AC 05/26 PO 0848 Montelukast Sodium 10 MG AT BEDTIME 05/26 2200 AC PO Omeprazole 40 MG DAILY AC 05/26 0700 AC 05/26 PO 0613 Review of Systems Review of Systems Constitutional: Reports: see HPI. 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 FH: CHF (congestive heart failure) FH: diabetes mellitus, Onset: 60+. FH: myocardial infarction BROTHER FH: diabetes mellitus GRANDFATHER FH: diabetes mellitus Psychosocial History Where Do You Live? Home Who Do You Live With? self Services at Home: Home Health Aide Primary Language: Nepalese Smoking Status: Former Smoker (Quit 24 Yrs Ago, ~16 Pack-Yrs) ETOH Use: denies use (Quit 24 Years Ago) Illicit Drug Use: cocaine (Used To Smoke ), marijuana (Used to Smoke) Functional Ability ADLs Independent: dressing, eating, toileting, bathing. Ambulation: cane IADLs Independent: finances, food prep, telephone, transportation, medication admin. Needs Assist: shopping, housework. 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 Exam & Diagnostic Data Vital Signs and I&O Vital Signs Date Time Temp Pulse Resp B/P Pulse O2 O2 Flow FiO2 Ox Delivery Rate 05/26 0848 64 180/90 05/26 0848 64 180/90 05/26 0848 64 180/90 05/26 0800 98.2 59 20 180/90 99 Room Air 05/26 0418 98.2 62 20 132/74 100 Room Air 05/26 0000 96 Room Air 05/25 2316 98.6 65 24 166/90 96 Room Air 05/25 2256 60 166/90 05/25 1949 63 199/75 05/25 1900 Room Air Room Air 05/25 1631 96.6 63 18 199/75 99 Room Air 05/25 1530 99.1 64 20 142/78 100 Room Air 05/25 1451 93 Room Air 05/25 1320 160/84 05/25 1311 97.6 70 24 97 Room Air Intake & Output 05/26 1600 05/26 0800 05/26 0000 05/25 1600 05/25 0800 05/25 0000 Intake Total 200 480 Output Total 400 Balance -200 480 Intake, Oral 200 480 Number 0 Bowel Movements Output, Urine 400 Patient 314 lb 285 lb Weight Physical Exam General Appearance: well developed/nourished, no apparent distress, alert, awake , anxious Neck: normal inspection Respiratory: normal breath sounds, chest non-tender, lungs clear Cardiovascular: regular rate/rhythm Gastrointestinal: normal bowel sounds, soft, non-tender Extremities: trace edema B/L lower extremities, chronic venous stasis changes B/ L lower ext Diagnostic Data EKG Results regular rate with NSR. No acute ST-T wave changes CXR Results prominent cardiac silhouette and mild prominence of the central pulmonary vasculature. 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 She presented to ER with complaint of bilateral lower extremity heaviness, breathing difficulty, wheezing and pounds weight gain in one week. Her medications including lisinopril/ hydrodissect, naproxen and Janumet were stopped by PCP because of worsening kidney functions. She just had a renal ultrasound one day prior to admission. She has already been taking Lasix 20 mg daily. Her symptoms are most likely due to acute on chronic diastolic congestive heart failure most likely secondary to high blood pressure and drinking a lot of water lately. Her troponins 3 are negative and EKG did not show any acute ST-T wave changes. She has history of smoking and using marijuana and cocaine when she was young. Family history is positive for coronary artery disease in grandmother and 2 brothers. 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 Since admission her blood pressure has been on higher side. She was taking clonidine and Coreg at home for high blood pressure and lisinopril has also been restarted here in hospital. Her creatinine on admission was 1.1 and today it is 1.2 most likely secondary to getting IV Lasix. So far she has got 20 mg IV Lasix 2 since admission. PLAN * Monitor vitals closely especially blood pressure * Will get an echocardiogram * Continue Lasix IV 20 mg twice a day with closer monitoring of kidney functions Problem List: 1. Acute diastolic CHF (congestive heart failure) Consult Acknowledgment - Thank you for your consult request.
--- NOTE | 2016-05-26 12:20 | ECHOCARDIOGRAM REPORT ---
DWAYNE COX Age: 65 : 1950 Gender: F Exam Date: 05/25/2016 19:46 Exam Location: [address] Ht (in): 67 Wt (lb): 300 BSA: 2.61 BP: 199 / 75 Ordering Physician: ALEXUS PHELPS MD Referring Physician: ALEXUS PHELPS MD Technologist: Beata Drummond [facility] Room Number: 174-02 Indications: CONGENITAL HEART DISEASE Rhythm: Sinus Technical Quality: Poor, Very technically difficult study FINDINGS Left Ventricle Normal size left ventricle. No obvious regional wall motion abnormalities. Left ventricular wall thickness moderately increased. Mildly abnormal left ventricular ejection fraction estimated at 45- 50%. Normal left ventricular ejection fraction estimated at 60-65%. Restrictive filling pattern of the left ventricle for age (stage 3 diastolic dysfunction). Restrictive filling pattern of the left ventricle for age (stage 3 diastolic dysfunction). Right Ventricle Right ventricle not well visualized, grossly normal. Right Atrium Normal right atrial size. Left Atrium Mild to moderate left atrial dilatation. Mitral Valve Mitral valve thickened. Moderate mitral annular calcification. Trace to mild mitral regurgitation. Aortic Valve Diffuse thickening (sclerosis) of the aortic valve cusps without reduced excursion. No aortic stenosis. No aortic regurgitation. Tricuspid Valve Tricuspid valve not well visualized, grossly normal. Physiologic tricuspid regurgitation. Pulmonic Valve Pulmonic valve not well visualized. Pericardium Small pericardial effusion. Great Vessels Aortic root and proximal ascending aorta not well visualized, grossly normal. CONCLUSIONS 1. This was a technically difficult and limited study due to the patient's body habitus. 2. Aortic sclerosis is present with no valvular stenosis or insufficiency. 3. Mitral leaflet thickening is present with moderate anular calcfiication and mild mitral insufficiency with mild to moderate left atrial enlargement. 4. A very small pericardial effusion is present. 5. The left ventricular chamber size and systolic function appear normal. Moderate concentric hypertrophy is present with LV diastolic dysfunction. 6. The right heart structures were not optimally visualized. The RV systolic pressure could not be accurately assessed. Figueroa Nur M.D. (Electronically Signed) Final Date: 26 May 2016 12:19 MEASUREMENTS (Male / Female) Normal Values 2D ECHO LV Diastolic Diameter PLAX 4.8 cm 4.2 - 5.9 / 3.9 - 5.3 cm LV Systolic Diameter PLAX 2.9 cm 2.1 - 4.0 cm LV Fractional Shortening PLAX 39.6 % 25 - 46 % LV Ejection Fraction 2D Teich 70.0 % IVS Diastolic Thickness 1.5 cm LVPW Diastolic Thickness 1.5 cm LV Relative Wall Thickness 0.6 RV Internal Dim ED PLAX 3.2 cm 1.9 - 3.8 cm LVOT Diameter 1.9 cm Aortic Root Diameter 2.9 cm LA Systolic Diameter LX 4.3 cm 3.0 - 4.0 / 2.7 - 3.8 cm LA Volume 39.0 cm 18 - 58 / 22 - 52 cm Ascending Aorta Diameter 3.3 cm DOPPLER AV Peak Velocity 149.0 cm/s AV Peak Gradient 8.9 mmHg AV Mean Velocity 102.0 cm/s AV Mean Gradient 5.0 mmHg AV Velocity Time Integral 38.2 cm LVOT Peak Velocity 118.0 cm/s LVOT Peak Gradient 5.6 mmHg LVOT Mean Velocity 75.3 cm/s LVOT Mean Gradient 3.0 mmHg LVOT Velocity Time Integral 27.3 cm LVOT Stroke Volume 77.4 cm AV Area Cont Eq vti 2.0 cm AV Area Cont Eq pk 2.2 cm MV Peak Velocity 183.0 cm/s MV Peak Gradient 13.4 mmHg MV Mean Velocity 108.0 cm/s MV Mean Gradient 5.0 mmHg Mitral E Point Velocity 116.0 cm/s Mitral A Point Velocity 154.0 cm/s Mitral E to A Ratio 0.8 MV PHT Velocity 155.0 cm/s MV Deceleration Mcmullen 607.0 cm/s MV Pressure Half Time 76.6 ms MV Area PHT 2.9 cm MV Deceleration Time 185.0 ms PV Peak Velocity 114.0 cm/s PV Peak Gradient 5.2 mmHg PV Mean Velocity 79.8 cm/s PV Mean Gradient 3.0 mmHg PV Velocity Time Integral 27.5 cm LV E' Lateral Velocity 5.7 cm/s Mitral E to LV E' Lateral Ratio 20.5 LV E' Septal Velocity 4.2 cm/s Mitral E to LV E' Septal Ratio 27.7
[2016-05-26] MEDS ORDERED: CLARITIN10 M1 PO (14:04)
[2016-05-26 15:03] VITALS: BP 162/70
[2016-05-26 15:30] VITALS: BP 180/80
[2016-05-26 18:23] VITALS: BP 140/80
[2016-05-26 22:52] VITALS: BP 148/80
--- NOTE | 2016-05-27 07:27 | PN- Housestaff ---
See Addendum Subjective Follow-up For: Dyspnea on exertion Acute diastolic CHF Tele-Events Since Last Visit: Sinus rhythm HR 55-63 No overnight events Subjective: No acute events overnight. Patient seen and examined this morning. SOB has improved. She complains of pain in her legs which she feels could be secondary to her arthritis or peripheral artery disease. She reports that she received an intervention by vascular surgery at [facility] previously, which did not help her symptoms. She was previously taking Naproxen for joint pain from arthritis which was discontinued 2 weeks ago secondary to impaired kidney function. Review of Systems Constitutional: Reports: see HPI. Objective Last 24 Hrs of Vital Signs/I&O Vital Signs Date Time Temp Pulse Resp B/P Pulse O2 O2 Flow FiO2 Ox Delivery Rate 05/27 09 97.9 81 20 170/80 05/27 0917 81 170/80 05/27 0917 81 20 170/80 05/27 0800 97.9 81 20 170/80 97 Room Air 05/26 2252 98.7 57 20 148/80 98 Room Air 05/26 2233 61 160/74 05/26 1823 140/80 Intake & Output 05/27 1600 05/27 0800 05/27 0000 Intake Total 120 340 Output Total 500 250 400 Balance -500 -130 -60 Intake, Oral 120 340 Output, Urine 500 250 400 Patient 98.089 kg Weight Physical Exam General Appearance: Alert, Oriented X3, No Acute Distress HEENT: Atraumatic, Mucous Membr. moist/pink Neck: Supple Cardiovascular: Regular Rate, Normal S1, Normal S2 Lungs: Clear to Auscultation Abdomen: Soft, No Tenderness, Positive Bowel Sounds, Obese Extremities: Trace Edema and Skin Changes Consistent with Chronic Venous Stasis on Bilateral Lower Extremities Current Medications: Current Medications Sig/Laure Start time Last Medication Dose Route Stop Time Status Admin Acetaminophen 650 MG Q6P PRN 05/25 1545 DCD 05/26 PO 0848 Carvedilol 12.5 MG BID 05/25 2199 DCD 05/27 PO 0918 Clonidine 0.2 MG DAILY 05/26 1000 DCD 05/27 PO 0917 Escitalopram Oxalate 15 MG AT BEDTIME 05/25 2199 DCD 05/26 PO 2225 Ferrous Sulfate 325 MG DAILY 05/26 1000 DCD 05/27 PO 09 Furosemide 20 MG 7:30 AM, & 4:30 PM 05/26 1630 DCD 05/27 IV 1144 Gabapentin 300 MG Q8 05/25 1613 DCD 05/27 PO 0645 Heparin Sodium 5,000 UNIT Q8 05/25 1536 DCD 05/27 (Porcine) SC 0644 Insulin Aspart 0 TIDAC 05/25 1700 DCD 05/27 SC 1143 Lisinopril 10 MG DAILY 05/26 1000 DCD 05/27 PO 0917 Loratadine 10 MG DAILY 05/26 1406 DCD 05/27 PO 0917 Montelukast Sodium 10 MG AT BEDTIME 05/26 2200 DCD 05/26 PO 2225 Omeprazole 40 MG DAILY AC 05/26 0700 DCD 05/27 PO 0645 Oxycodone/ 1 TAB Q6P PRN 05/27 0830 DC 05/27 Acetaminophen PO 0916 Last 24 Hrs of Lab/Martinez Results Last 24 Hrs of Labs/Mics: Laboratory Tests 05/27/16 0630: Anion Gap 8, Estimated GFR 38 L, BUN/Creatinine Ratio 28.6 H Assessment/Plan Assessment: 65 y/o F with PMHx of HTN, T2DM and diastolic dysfunction who presents with progressively worsening dyspnea on exertion x2 days, likely secondary to acute diastolic CHF. #Acute diastolic CHF: SOB improved significantly since admission with IV diuresis. ECHO with normal LVEF estimated at 60-65% and stage 3 diastolic dysfunction, worsened from prior ECHO in September 2014 with stage 1 diastolic dysfunction. * Discharge home today. * Outpatient referral for Dr. Nur provided on discharge. * Continue prior to admission Lasix 20 mg PO daily on discharge. #HTN: BP continues to be elevated, 170/80 today. * Continue carvedilol 12.5 mg PO BID and clonidine 0.2 mg PO daily on discharge. * Lisinopril increased to 20 mg PO daily on discharge. * Patient will have BMP checked one week after discharge (06/03/16) and forward results to PCP and bath house attendant who will adjust medications accordingly based on kidney function. #Leg pain: Likely secondary to arthritis and peripheral artery disease. * Follow up with primary care physician who can make further recommendations. * Patient will take extra strength Tylenol 1-2 tabs QID PRN for pain on discharge. * Patient instructed to apply Voltaren gel QID to knees on discharge. Diet: Consistent Carbohydrate 3 DVT PPx: HSQ and ALPs CODE: FULL Problem List: 1. Acute diastolic CHF (congestive heart failure) 2. (HFpEF) heart failure with preserved ejection fraction 3. Essential hypertension 4. Arthritis pain 5. PAD (peripheral artery disease) Pain Ratin Pain Location: Legs Pain Goal: Pain 4 or less Pain Plan: 1-2 tabs of extra strength Tylenol QID PRN Tomorrow's Labs & Rationales: None Discharge Plan Discharge Disposition: home Stable for Discharge? Yes Anticipated Discharge (Day): today
[2016-05-27 08:00] VITALS: BP 170/80
--- NOTE | 2016-05-27 08:37 | Patient Discharge Instructions ---
Discharge Instructions General Discharge Information You were seen/treated for: Acute diastolic congestive heart failure Watch for these problems: Sudden weight gain Worsening shortness of breath Swelling in your legs, ankles or abdomen Dizziness or fainting Chest pain Special Instructions: Please follow up with your primary care physician Edis Barone APRN and crop pest control specialist Dr. Demetris Nur within one week of discharge. Please have your blood work checked on 06/03/16 and forward results to your primary care physician and crop pest control specialist. Take all medications as prescribed. Diet Recommended Diet: Diabetic (No Added Salt) Activity Full Activity/No Limits: Yes Acute Coronary Syndrome Inclusion Criteria At DC or during hospital stay patient has or had the following: ACS DIAGNOSIS No Discharge Core Measures Meds if any: Prescribed or Continued at Discharge Meds if any: NOT Prescribed or Continued at Discharge Congestive Heart Failure Inclusion Criteria At DC or during hospital stay patient has or had the following: CHF DIAGNOSIS Yes Discharge Core Measures Meds if any: Prescribed or Continued at Discharge COLT/ARB for EF <40% Yes (EF estimated at 60-65%) Meds if any: NOT Prescribed or Continued at Discharge Cerebrovascular accident Inclusion Criteria At DC or during hospital stay patient has or had the following: CVA/TIA Diagnosis No Discharge Core Measures Meds if any: Prescribed or Continued at Discharge Meds if any: NOT Prescribed or Continued at Discharge Venous thromboembolism Inclusion Criteria VTE Diagnosis No VTE Type NONE VTE Confirmed by (Test) NONE Discharge Core Measures - Per Current guidelines, there needs to be overlap - treatment for the first 5 days of Warfarin therapy. - If discharged on Warfarin prior to 5 days of - overlap therapy, the patient will need to be - assessed for post discharge needs including - *Post discharge parental anticoagulation - *Warfarin and/or parental anticoagulation education - *Follow up date to check INR post discharge At least 5 days overlap therapy as Inpatient No Meds if any: Prescribed or Continued at Discharge Note: Overlap Therapy is Warfarin and Anticoagulant Meds if any: NOT Prescribed or Continued at Discharge
--- NOTE | 2016-05-27 08:45 | PN- Student ---
Subjective Subjective: Medical Student Daily Progress Note: Sonja Mack is a 65 yo F with a PMH significant for HTN, type 2 DM, and stage 1 diastolic dysfunction (2014), who presented to the ED on 05/25/16 with a 2 week history of leg swelling and a 4 day history of dyspnea on exertion. She was subsequently admitted for a CHF exacerbation. Since admission, she has been improving. She states she has less difficulty with breathing than she did on admission, and feels her swelling in her legs has decreased. Overnight, she denies any CP, SOB, dizziness, N/V, or increase in swelling. Her only complaint is joint pain 2/2 arthritis. There were no acute events overnight. She appears comfortable and in good spirits. Relevant Admission labs/imaging: PT: 13.5 INR: 1.29 BUN: 37 Cr: 1.1 glucose: 206 Pro-BNP: 854 Troponins: negative Echo: moderate increase in LV wall thickness, EF 45-50% (compared to 65% in 2015 ), restrictive stage 3 diastolic dysfunction (compared to stage 1 in 2015), mild to moderate left atrium dilatation, mitral valvue thickening and moderate annular calcifcation with trace to mild regurgitation, aortic sclerosis, small pericardial effusion. Current Medications Sig/Laure Start time Last Medication Dose Route Stop Time Status Admin Acetaminophen 650 MG Q6P PRN 05/25 1545 DCD 05/26 PO 0848 Carvedilol 12.5 MG BID 05/25 2200 DCD 05/27 PO 0918 Clonidine 0.2 MG DAILY 05/26 1000 DCD 05/27 PO 0917 Escitalopram Oxalate 15 MG AT BEDTIME 05/25 2200 DCD 05/26 PO 2225 Ferrous Sulfate 325 MG DAILY 05/26 1000 DCD 05/27 PO 0917 Furosemide 40 MG .STK-MED ONE 05/26 1716 DC IV 05/26 1717 Furosemide 20 MG 7:30 AM, & 4:30 PM 05/26 1630 DCD 05/27 IV 1144 Gabapentin 300 MG Q8 05/25 1613 DCD 05/27 PO 0645 Heparin Sodium 5,000 UNIT Q8 05/25 1536 DCD 05/27 (Porcine) SC 0644 Insulin Aspart 0 TIDAC 05/25 1700 DCD 05/27 SC 1143 Lisinopril 10 MG DAILY 05/26 1000 DCD 04/14 PO 0917 Loratadine 10 MG DAILY 05/26 1406 DCD 05/27 PO 0917 Montelukast Sodium 10 MG AT BEDTIME 05/26 2200 DCD 05/26 PO 2225 Omeprazole 40 MG DAILY AC 05/26 0700 DCD 05/27 PO 0645 Oxycodone/ 1 TAB Q6P PRN 05/27 0830 DC 05/27 Acetaminophen PO 0916 Objective Objective: Physical Exam: Vital Signs Date Time Temp Pulse Resp B/P Pulse O2 O2 Flow FiO2 Ox Delivery Rate 05/27 0918 97.9 81 20 170/80 05/27 0917 81 170/80 05/27 0917 81 20 170/80 05/27 0800 97.9 81 20 170/80 97 Room Air 05/26 2252 98.7 57 20 148/80 98 Room Air 05/26 2233 61 160/74 05/26 1823 140/80 05/26 1530 98.4 58 20 180/80 97 Room Air 05/26 1503 162/70 97 Intake & Output 05/27 1600 05/27 0800 05/27 0000 Intake Total 120 340 Output Total 500 250 400 Balance -500 -130 -60 Intake, Oral 120 340 Output, Urine 500 250 400 Patient 216 lb Weight General: Comfortable, sitting on the side of the bed Neuro: A&O x3, moves all extremities spontaneously CV: RRR, S1,S2; no murmurs. Pulmonary: CTA, no evidence of wheezing or crackles GI: abdomen soft, non tender. bowel sounds present and normoactive. Midline scar noted. Extremities: BLE edema improving, trace non-pitting. All extremities well perfused. Results Results: Laboratory Tests 05/27/16 0630: 05/26/16 0100: Troponin I < 0.01 05/25/16 1940: Troponin I < 0.01 Assessment/Plan Assessment: Sonja Mack is a 65yo F with a PMH significant for HTN, DM type 2, and diastolic dysfunction, who presented to the ED on 05/25/16 for a 2 week history of leg swelling and a 4 day history of dyspnea on exertion. She has been improving since admission, is medically stable, and will likely be discharged home today. Plan: Acute on Chronic diastolic CHF: The patient has received Lasix on this admission , with significant diuresis. Fluid balance on 05/26/16 was negative (-) 380 mL. Lower extremity edema has decreased and dyspnea has improved. No s/s of fluid overload are evident. * Continue Lasix 20 mg BID while inpatient, with daily renal function monitoring. * Lasix 20 mg po daily as outpatient with close renal function monitoring, per cardiology * Continue Clonidine and Carvedilol home dosing * Increase Lisinopril to 20 mg daily per cardiology * Educate patient on lifestyle modifications, including salt restriction, fluid restriction, daily weights, dietary changes, exercise * Follow up with cardiology as outpatient HTN: has been hypertensive since admission. Medications restarted and continued vitals monitoring. * continue vitals monitoring. * continue home meds as above * Follow up with PCP and cardiology upon discharge Type 2 DM: Admission glucose was significantly elevated at 206 mg/dL. Low dose SSI with Novolog has been initiated with improvement. * Continue glimepiride on discharge * Continue SSI during inpatient, with finger sticks AC * Educate on lifestyle changes, including carb counting, exercise, and diet modifications Arthritis: previously on Naproxen, which was discontinued ~2 weeks ago 2/2 impaired renal function. Has been switched to extra strength tylenol as inpatient * Extra strength Tylenol, 2 tabs, qid as needed for arthritic pain * Start Voltaren gel as inpatient, continue use as outpatient * Recommend follow up with PCP and/or corporate health consultant to discuss further options Diet: Carb control DVT prophylaxis: HSQ 5000u Code status: Full code Pain Control: Acetaminophen extra strength; Voltaren gel for arthritic joints
[2016-05-27 09:18] VITALS: BP 170/80
[2016-05-27] MEDS ORDERED: LISINOPRIL20 M1 PO (10:47)
[2016-05-27] MEDS ORDERED: TYLENOL EXTRA500 M2 PO (10:49)
[2016-05-27] MEDS ORDERED: VOLTAREN100 GM TOP (10:55)
--- NOTE | 2016-05-27 13:14 | PN- Cardiology ---
Subjective Subjective: Clinically improved. Likely discharge today. No new symptoms. Objective Vital Signs and I&Os Vital Signs Date Time Temp Pulse Resp B/P Pulse O2 O2 Flow FiO2 Ox Delivery Rate 05/27 0918 97.9 81 20 170/80 05/27 0917 81 170/80 05/27 0917 81 20 170/80 05/27 0800 97.9 81 20 170/80 97 Room Air 05/26 2252 98.7 57 20 148/80 98 Room Air 05/26 2233 61 160/74 05/26 1823 140/80 05/26 1530 98.4 58 20 180/80 97 Room Air 05/26 1503 162/70 97 Intake & Output 05/27 1600 05/27 0800 05/27 0000 05/26 1600 05/26 0000 Intake Total 120 340 480 200 480 Output Total 250 400 600 400 Balance -130 -60 -120 -200 480 Intake, Oral 120 340 480 200 480 Number 0 Bowel Movements Output, Urine 250 400 600 400 Patient 216 lb 314 lb 285 lb Weight Physical Exam: General Appearance: well developed/nourished, no apparent distress, alert, awake , anxious Neck: normal inspection Respiratory: normal breath sounds, chest non-tender, lungs clear Cardiovascular: regular rate/rhythm Gastrointestinal: normal bowel sounds, soft, non-tender Extremities: trace edema B/L lower extremities, chronic venous stasis changes B/ L lower e Current Medications: Current Medications Sig/Laure Start time Last Medication Dose Route Stop Time Status Admin Acetaminophen 650 MG Q6P PRN 05/25 1545 AC 05/26 PO 0848 Carvedilol 12.5 MG BID 05/25 2199 AC 05/27 PO 0918 Clonidine 0.2 MG DAILY 05/26 1000 AC 05/27 PO 0917 Escitalopram Oxalate 15 MG AT BEDTIME 05/25 2199 AC 05/26 PO 2225 Ferrous Sulfate 325 MG DAILY 05/26 1000 AC 05/27 PO 0917 Furosemide 40 MG .STK-MED ONE 05/26 1716 DC IV 05/26 171 Furosemide 20 MG 7:30 AM, & 4:30 PM 05/26 1630 AC 05/27 IV 1144 Gabapentin 300 MG Q8 05/25 1613 AC 05/27 PO 0645 Heparin Sodium 5,000 UNIT Q8 05/25 1536 AC 05/27 (Porcine) SC 0644 Insulin Aspart 0 TIDAC 05/25 1700 AC 05/27 SC 1143 Lisinopril 10 MG DAILY 05/26 1000 AC 05/27 PO 0917 Loratadine 10 MG DAILY 05/26 1406 AC 05/27 PO 0917 Montelukast Sodium 10 MG AT BEDTIME 05/26 2200 AC 05/26 PO 2225 Omeprazole 40 MG DAILY AC 05/26 0700 AC 05/27 PO 0645 Oxycodone/ 1 TAB Q6P PRN 05/27 0830 DC 05/27 Acetaminophen PO 0916 Results Last 48 Hrs of Labs/Mics: Laboratory Tests 05/27/16 0630: Anion Gap 8, Estimated GFR 38 L, BUN/Creatinine Ratio 28.6 H 05/26/16 0636: Anion Gap 10, Estimated GFR 45 L, BUN/Creatinine Ratio 29.2 H 05/26/16 0100: Troponin I < 0.01 05/25/16 1940: Troponin I < 0.01 05/25/16 1336: Anion Gap 9, Estimated GFR 50 L, BUN/Creatinine Ratio 33.6 H, Glucose 206 H, Calcium 9.6, Total Bilirubin 0.4, AST 13 L, ALT 24, Alkaline Phosphatase 119, Troponin I < 0.01, Roc-D-Kqgdkrlpwzs Pept 854 H, Total Protein 6.8, Albumin 3.6 , Globulin 3.2, Albumin/Globulin Ratio 1.1, Vitamin B12 > 1000 H, TSH 1.740, Free T4 1.10, PT 13.5 H, INR 1.29 H, CBC w Diff NO MAN DIFF REQ, RBC 3.18 L, MCV 89.6, MCH 28.9, RDW 15.5 H, MPV 9.4, Gran % 65.8, Lymphocytes % 23.3, Monocytes % 8.3, Eosinophils % 2.0, Basophils % 0.6, Absolute Granulocytes 3.4, Absolute Lymphocytes 1.2, Absolute Monocytes 0.4, Absolute Eosinophils 0.1, Absolute Basophils 0, PUBS MCHC 32.3 L Assessment/Plan Assessment/Plan Assessment: 1. Probable acute on chronic HFpEF 2. Hypertension 3. Hyperlipidemia 4. Diabetes 5. GERD 6. Chronic anemia Recommendations: -The patient is doing somewhat better today after diuresing gently over the last several days. -Continue current medication regimen. -The patient's blood pressure remains mildly elevated. I would likely consider increasing her lisinopril to 20 mg daily with close monitoring of her renal function as an outpatient. -Continue Lasix 20 mg daily at discharge -Continue carvedilol at current dose. -I will follow-up with the patient in the office in a few weeks. Continue telemetry? No
--- NOTE | 2016-05-27 14:07 | Discharge Summary ---
See Addendum Visit Information Visit Dates Admission Date: 05/25/16 Discharge Date: 05/27/16 Hospital Course Course Attending Physician: DEMETRIS TAYLOR MD Primary Care Physician: EDIS SEBASTIAN APRN Consulting Request: Consulting Specialty: Cardiology Consulting Physician: Demetris Merino MD Reason for Consult: CHF exacerbation Hospital Course: Ms. Mack is a morbidly obese 65 y/o F with PMHx of HTN, HLD and T2DM c/b retinopathy, neuropathy and CKD who presented with a 2-week history of leg swelling and a 2-day history of dyspnea on exertion and wheezing, as well as orthopnea and fleeting chest pain. On initial presentation vitals were remarkable for tachypnea to 24 and elevated blood pressure to 160/84 which later increased to 199/75. SpO2 was 97% on room air. On exam, patient had trace to 1+ edema on bilateral lower extremities, however lungs were clear and there was no JVD. Labs were remarkable for BUN/Cr 37/1.1 and proBNP 854. CXR showed enlarged cardiac silhouette and mild prominence of the central pulmonary vasculature consistent with congestive heart failure. Patient was admitted for acute diastolic CHF. Below are the issues that were addressed during current admission : #Acute diastolic CHF: Patient was diuresed with Lasix 20 mg IV BID with significant improvement of shortness of breath and leg swelling. Serial EKGs and troponins were obtained to rule out ACS in the setting of fleeting chest pain and were negative. ECHO was performed which showed normal LVEF estimated at 60- 65% and stage 3 diastolic dysfunction, worsened from prior ECHO in September 2014 with stage 1 diastolic dysfunction. CHF teaching was provided. * Patient was given outpatient referral for blanket winder operator Dr. Merino and instructed to follow up with him within one week of discharge. * Patient will continue prior to admission Lasix 20 mg PO daily on discharge. #HTN: Patient had been taking moexipril-HCTZ up which was stopped by her PCP secondary to impaired kidney function (BUN/creatinine 38/1.43) one week prior to current presentation. Patient was started on lisinopril during this admission in view of her elevated blood pressures and CKD 2/2 diabetes. * Patient will continue prior to admission carvedilol 12.5 mg PO BID and clonidine 0.2 mg PO daily, as well as lisinopril 20 mg PO daily started while inpatient on discharge. #BRENDA on CKD: Creatinine had increased to 1.4 on day of discharge, likely secondary to diuresis. * Patient was instructed to have her BMP checked one week after discharge () and forward results to her PCP and blanket winder operator who will adjust her antihypertensive medications based on kidney function. #Leg pain: Patient complained of significant leg pain throughout admission, which was felt to be secondary to arthritis and peripheral artery disease. * Patient was instructed to follow up with her PCP for further evaluation and management. * Patient will take extra strength Tylenol 1-2 tabs QID PRN for pain and apply Voltaren gel QID to knees. Prescriptions were provided. Allergies: Coded Allergies: NO KNOWN ALLERGIES (10/06/14) Disposition Summary Disposition Principal Diagnosis: Acute diastolic congestive heart failure Additional Diagnosis: BRENDA on CKD Discharge Disposition: home or self care Discharge Instructions General Discharge Information Code Status: Full Code Patient's Diet: Diabetic (No Added Salt) Patient's Activity: Full Activity/No Limits Follow-Up Instructions/Appts: Please follow up with your primary care physician Edis Sebastian APRN and blanket winder operator Dr. Demetris Merino within one week of discharge. Please have your blood work checked on 06/03/16 and forward results to your primary care physician and blanket winder operator. Take all medications as prescribed. Medications at Discharge Discharge Medications: Continue taking these medications: Gabapentin (Neurontin) 300 MG CAP 1 Capsule ORAL THREE TIMES DAILY Qty = 90 Comments: PER PT Furosemide (Furosemide) 20 MG TAB 1 Tablet ORAL DAILY Comments: PER PT Pantoprazole Sodium (Protonix) 40 MG TAB 1 Tablet ORAL DAILY Qty = 14 Comments: PER PT Clonidine (Catapres) 0.2 MG TABLET 1 Tablet ORAL DAILY Comments: Last Taken:05/27/16 Time:09:17A.M Carvedilol (Coreg) 12.5 MG TABLET 1 Tablet ORAL TWICE DAILY Comments: Last Taken:05/27/16 Time:09:17A.M Ferrous Sulfate (Feosol) 325 MG (65 MG IRON) TABLET 1 Tablet ORAL DAILY Comments: Last Taken:05/27/16 Time:09:17A.M Loratadine (Claritin) 10 MG TABLET 1 Tablet ORAL DAILY Comments: Last Taken:05/27/16 Time:9:17A.M Montelukast Sodium (Singulair) 10 MG TABLET 1 Tablet ORAL DAILY Comments: Last Taken:05/27/16 Time:9:17A.M Glimepiride (Amaryl) 4 MG TABLET 1 Tablet ORAL DAILY Comments: Last Taken:NOT GIVEN THIS ADMISSION Time: Escitalopram Oxalate (Lexapro) 10 MG TABLET 1.5 Tablet ORAL AT BEDTIME Comments: Last Taken:05/26/16 Time:10:25P.M Start taking the following new medications: Lisinopril (Lisinopril) 20 MG TABLET 1 Tablet ORAL DAILY Qty = 30 No Refills Comments: Last Taken:05/27/16 Time:9:17A.M Acetaminophen (Tylenol Extra Strength) 500 MG TABLET 1-2 Tablet ORAL 4 TIMES A DAY as needed for Leg Pain Qty = 30 No Refills Comments: NOT GIVEN THIS ADMISSION Diclofenac Sodium (Voltaren) 1 % GEL..GRAM. 1 Gram On the skin 4 TIMES A DAY Qty = 1 No Refills Instructions: apply to your knees Comments: NOT GIVEN THIS ADMISSION Copies To: EDIS SEBASTIAN APRN; Hussain MERINO MD Attending MD Review Statement Documenting Attending: DEMETRIS TAYLOR MD Other Findings: The patient was seen and agree with the plan of care upon discharge.
== END 2016-05-27 12:30 | DRG 194 ==
LOC: ENRESERVTM → ENRESERVDT → ERH 13:01 → 1NO 15:07 → ENPENDDIS 15:07 → ERHI 15:07 → 1NO 17:08
PROVIDERS: Physician Assistant Medical; ADMIT Internal Medicine
DX: I13.0 Hypertensive heart and chronic kidney disease with heart failure and stage 1 through stage 4 chronic kidney disease, or unspecified chronic kidney disease (principal); E11.22 Type 2 diabetes mellitus with diabetic chronic kidney disease; E11.42 Type 2 diabetes mellitus with diabetic polyneuropathy; E66.01 Morbid (severe) obesity due to excess calories; E11.319 Type 2 diabetes mellitus with unspecified diabetic retinopathy without macular edema; I50.33 Acute on chronic diastolic (congestive) heart failure; E78.5 Hyperlipidemia, unspecified; K21.9 Gastro-esophageal reflux disease without esophagitis; Z79.84 Long term (current) use of oral hypoglycemic drugs; F32.9 Major depressive disorder, single episode, unspecified; D50.9 Iron deficiency anemia, unspecified; N18.9 Chronic kidney disease, unspecified; J30.9 Allergic rhinitis, unspecified; Z82.49 Family history of ischemic heart disease and other diseases of the circulatory system; Z68.39 Body mass index [BMI] 39.0-39.9, adult; Z87.891 Personal history of nicotine dependence
CPT/HCPCS: 1NSP; 36415; 76775; 82436; 93005; 93010; 93306; J1644; J1940; Q2036

== ENCOUNTER 2017-05-08 09:47 | Inpatient (IN) | payer OTHER ==
[~2017-05-08] VITALS: Ht 175.3 cm; Wt 129.2 kg
[~2017-05-08 09:47] MED LIST changes: +AMARYL4 M1 PO; +CATAPRES0.2 MG PO; +CLARITIN10 M1 PO; +COREG6.25 M1 PO; +FEOSOL325 MG PO; +FUROSEMIDE20 M1 PO; -FUROSEMIDE20 MG PO; +LEXAPRO10 M1 PO; +LISINOPRIL20 M1 PO; +MONTELUKAST SOD10 M1 PO; +NEURONTIN300 M1 PO; -NEURONTIN300 MG PO; -PROTONIX 40MG T40 MG PO; +PROTONIX40 M3 PO; +SINGULAIR10 M1 PO; +TYLENOL EXTRA500 M2 PO; +VOLTAREN100 GM TOP
--- NOTE | 2017-05-08 11:22 | RADIOLOGY REPORT ---
EXAMINATION: XR CHEST CLINICAL INFORMATION: Pneumonia, productive cough COMPARISON: 05/25/2016 chest x-ray TECHNIQUE: 2 views of the chest were obtained. FINDINGS: There is mild enlargement of the cardiac silhouette, similar to prior exam. The mediastinal silhouette is normal. Atherosclerotic calcifications of the aortic arch noted. Mild pulmonary venous congestion in the central perihilar region noted. No overt pulmonary edema. Linear densities at the left lung base noted and could represent atelectasis. No pleural effusion. No pneumothorax. Degenerative changes of the shoulder joints and mild anterior endplate osteophytosis of multiple thoracic spine noted. IMPRESSION: Mild cardiomegaly and pulmonary venous congestion without overt pulmonary edema.
--- NOTE | 2017-05-08 11:28 | ED DYSPNEA/ASTHMA COMPLAINT ---
History of Present Illness General Chief Complaint: General Adult Stated Complaint: DX BRONCHITIS XWEEKS LEG SWELLING HX CHF Source: patient, old records Exam Limitations: no limitations Vital Signs & Intake/Output Vital Signs & Intake/Output Vital Signs Date Time Temp Pulse Resp B/P B/P Pulse O2 O2 Flow FiO2 Mean Ox Delivery Rate 05/08 1516 97.6 56 18 236/88 94 Room Air 05/08 1241 97.6 61 18 166/74 96 Room Air 05/08 1225 Room Air 05/08 1008 97.0 56 20 173/69 98 Room Air Allergies Coded Allergies: NO KNOWN ALLERGIES (10/06/14) Reconcile Medications Acetaminophen (Tylenol Extra Strength) 500 MG TABLET 1-2 TAB PO 4 TIMES/DAY PRN Leg Pain Carvedilol (Coreg) 6.25 MG TABLET 1 TAB PO BID HTN (Reported) Clonidine (Catapres) 0.2 MG TABLET 1 TAB PO DAILY HTN (Reported) Diclofenac Sodium (Voltaren) 1 % GEL..GRAM. 1 GM TOP 4 TIMES/DAY JOINT PAIN apply to your knees Escitalopram Oxalate (Lexapro) 10 MG TABLET 1.5 TAB PO AT BEDTIME depression (Reported) Furosemide 20 MG TABLET 1 TAB PO DAILY WATER RETENTION (Reported) Gabapentin (Neurontin) 300 MG CAPSULE 1 CAP PO TID NEUROPATHY (Reported) Glimepiride (Amaryl) 4 MG TABLET 1 TAB PO DAILY DIABETES (Reported) Lisinopril 20 MG TABLET 1 TAB PO DAILY HIGH BLOOD PRESSURE Loratadine (Claritin) 10 MG TABLET 1 TAB PO DAILY ALLERGIES (Reported) Montelukast Sodium (Singulair) 10 MG TABLET 1 TAB PO DAILY SOB (Reported) Pantoprazole Sodium (Protonix) 40 MG TABLET.DR 1 TAB PO DAILY GI (Reported) Sitagliptin Phos/Metformin HCl (Janumet 50-1,000 MG Tablet) 50 MG-1,000 MG TABLET 1 TAB PO BID DIABETES (Reported) Triage Note: PT SIB PMD FOR CXR. STATES SHE IS BEING TREATED FOR BRONCHITIS AND TOOK ANTIBIOTICS FOR THAT. STATES SHE STILL HAS A COUGH. HX OF CHF AND LEGS SWELLING Triage Nurses Notes Reviewed? yes Onset: Abrupt Duration: week(s):, constant, continues in ED Timing: recent history Severity: moderate, severe Activities at Onset: none HPI: 66-year-old female comes into the emergency room for further evaluation of shortness of breath cough and chest pain. Patient reports of the symptoms ongoing for the past 6 weeks. She has had this persistent nonproductive cough. She denies any fever chills vomiting. Some associated nauseousness at times. She reports some chest tightness that is intermittent and seems to be worse with exertion. She also reports some shortness of breath. She has a history of heart failure. She denies any other associated symptoms. She was seen once by and was on a course of antibiotics and cough medicine was taking Mucinex [id number]-[id number] with no relief. (Rob Simon) Past History Travel History Traveled to [place] past 21 day No Medical History Any Pertinent Medical History? see below for history Neurological: peripheral neuropathy EENT: allergies, diabetic retinopathy Cardiovascular: hypertension, hyperlipidemia Respiratory: bronchitis Gastrointestinal: GERD, appendicitis ventral hernia Hepatic: NONE Renal: abnormal kidney function Musculoskeletal: sciatica, arthritis Psychiatric: depression Endocrine: diabetes Blood Disorders: anemia Cancer(s): NONE PROMOTION WRITER/Reproductive: NONE History of MRSA: No History of VRE: No History of CDIFF: No Surgical History Surgical History: appendectomy, hernia repair-ventral, cyst removal from breast exploratory laparotomy Psychosocial History Who do you live with Patient/Self Services at Home Home Health Aide What is your primary language Thai Tobacco Use: Quit >30 days ago ETOH Use: denies use Illicit Drug Use: denies illicit drug use Family History Family History, If Any: SON Hypertension SISTER, , Age 60+; Cause: Heart disease. FH: CHF (congestive heart failure) FH: diabetes mellitus, Onset: 60+. FH: myocardial infarction BROTHER FH: diabetes mellitus GRANDFATHER FH: diabetes mellitus Hx Contributory? No (Rob Simon) Review of Systems Review of Systems Constitutional: Reports: see HPI. EENTM: Reports: no symptoms. Respiratory: Reports: see HPI. Cardiovascular: Reports: see HPI. GI: Reports: no symptoms. Genitourinary: Reports: no symptoms. Musculoskeletal: Reports: no symptoms. Skin: Reports: no symptoms. Neurological/Psychological: Reports: no symptoms. Hematologic/Endocrine: Reports: no symptoms. Immunologic/Allergic: Reports: no symptoms. All Other Systems: Reviewed and Negative (Rob Simon) Physical Exam Physical Exam General Appearance: well developed/nourished, alert, awake Head: atraumatic, normal appearance Eyes: Bilateral: normal appearance, EOMI. Ears, Nose, Throat: normal ENT inspection, hearing grossly normal Neck: normal inspection Respiratory: normal breath sounds, no respiratory distress Cardiovascular: regular rate/rhythm Extremities: BEHAVIOR SUPPORT SPECIALIST PEDAL EDEMA APPRECIATED Neurologic/Psych: awake, alert, oriented x 3 Skin: intact, normal color Core Measures ACS in differential dx? Yes CVA/TIA Diagnosis No Sepsis Present: No Sepsis Focused Exam Completed? No (Jaison FIELD,Rob) Progress Differential Diagnosis: asthma, AMI, bronchitis, costochondritis, CHF, COPD, musculoskeletal pain, pericarditis, pulmonary embolism, pneumonia, pneumothorax, unstable angina Plan of Care: Orders Procedure Date/time Status Heart Healthy Diet 05/08 L Active Patient Data 05/08 1553 Active TROPONIN LEVEL 05/08 1515 Complete EKG 05/08 1515 Active Telemetry/Computational Theory Scientist 05/08 1127 Active TROPONIN LEVEL 05/08 1127 Complete COMPREHENSIVE METABOLIC PANEL 05/08 1127 Complete CBC WITHOUT DIFFERENTIAL 05/08 112 Complete B-TYPE NATRIURETIC PEP (BNP) 05/08 1127 Complete EKG 05/08 1127 Active Laboratory Tests 05/08/17 1540: Troponin I < 0.01 05/08/17 1213: Anion Gap 12, Estimated GFR 38 L, BUN/Creatinine Ratio 25.7 H, Glucose 194 H, Calcium 9.7, Total Bilirubin 0.4, AST 11 L, ALT 9, Alkaline Phosphatase 100, Troponin I < 0.01, Hil-Z-Bhhvjpegvhl Pept 3430 H, Total Protein 7.0, Albumin 3.5, Globulin 3.5, Albumin/Globulin Ratio 1.0 L, CBC w Diff NO MAN DIFF REQ, RBC 3.22 L, MCV 86.5, MCH 27.8, MCHC 32.1 L, RDW 16.5 H, MPV 9.1, Gran % 83.4 H, Lymphocytes % 12.8 L, Monocytes % 2.8, Eosinophils % 1.0, Basophils % 0, Absolute Granulocytes 5.3, Absolute Lymphocytes 0.8 L, Absolute Monocytes 0.2, Absolute Eosinophils 0.1, Absolute Basophils 0 Diagnostic Imaging: Viewed by Me: Radiology Read. Discussed w/RAD: Radiology Read. Radiology Impression: PATIENT: DWAYNE COX PRESENT AGE: 66 PATIENT ACCOUNT NO: [id number] : 52 LOCATION: [facility] ORDERING PHYSICIAN: Rob FIELD SERVICE DATE: 05/08/171009 EXAM TYPE: RAD - XRY-CHEST XRAY, TWO VIEWS EXAMINATION: XR CHEST CLINICAL INFORMATION: Pneumonia, productive cough COMPARISON: 05/25/2016 chest x-ray TECHNIQUE: 2 views of the chest were obtained. FINDINGS: There is mild enlargement of the cardiac silhouette, similar to prior exam. The mediastinal silhouette is normal. Atherosclerotic calcifications of the aortic arch noted. Mild pulmonary venous congestion in the central perihilar region noted. No overt pulmonary edema. Linear densities at the left lung base noted and could represent atelectasis. No pleural effusion. No pneumothorax. Degenerative changes of the shoulder joints and mild anterior endplate osteophytosis of multiple thoracic spine noted. IMPRESSION: Mild cardiomegaly and pulmonary venous congestion without overt pulmonary edema. DICTATED BY: Marisol Thakur MD DATE/TIME DICTATED:05/08/171115 WELT ROUGHER:TRACEY DATE/TIME TRANSCRIBED:05/08/171115 CONFIDENTIAL, DO NOT COPY WITHOUT APPROPRIATE AUTHORIZATION. <Electronically signed in Other Vendor System> SIGNED BY: Marisol Thakur MD 05/08/17 1122 Initial ED EKG: normal sinus rhythm, rate (55), nonspecific ST T wave chg (Rob Simon) Departure Departure Disposition: STILL A PATIENT Condition: Stable Clinical Impression Primary Impression: Hypertensive urgency Secondary Impressions: Chest pain with high risk for cardiac etiology Referrals: Edis Barone APRN (PCP/Family) Departure Forms: Customer Survey General Discharge Information Admission Note Spoke With: Demetris Naylor MD Documentation of Exam: Documentation of any treatments & extenuating circumstances including Concerns Regarding Discharge (functional status, medication knowledge or non-compliance, living conditions, etc.) that warrant an admission rather than observation: Patient will require IV blood pressure control. Cardiac telemetry. Serial troponins. Repeat labs. Potentially renal consultation. Hypertensive at 236 here in the emergency room with intermittent chest pain. Medically not safe for discharge this time. (Rob Simon) PA/BEHAVIOR SUPPORT SPECIALIST Co-Sign Statement Statement: ED Attending supervision documentation- [X] I saw and evaluated the patient. I have also reviewed all the pertinent lab results and diagnostic results. I agree with the findings and the plan of care as documented in the PA's/BEHAVIOR SUPPORT SPECIALIST's documentation. Patient presents for evaluation of a cough and leg swelling and elevated blood pressure. Physical examination reveals a comfortable appearing woman with a nonfocal neurologic examination and bilateral lower extremity pitting edema. [] I have reviewed the ED Record and agree with the PA's/BEHAVIOR SUPPORT SPECIALIST's documentation. [] Additions or exceptions (if any) to the PAs/BEHAVIOR SUPPORT SPECIALIST's note and plan are summarized below: [] (Mellissa BOWMAN,Kris Rodriguez) Critical Care Note Critical Care Note Critical Care Time: 30-74 min (35) (Rob Simon)
[2017-05-08] MEDS ORDERED: JANUMET 50-1,01 EACH PO (12:07)
[2017-05-08 12:19] LABS: ABSOLUTE BASOPHIL COUNT 0 /CUMM (0.0-0.2); ABSOLUTE EOSINOPHIL COUNT 0.1 /CUMM (0.0-0.7); ABSOLUTE GRANULOCYTE CT 5.3 /CUMM (1.4-6.5); ABSOLUTE LYMPH COUNT 0.8 /CUMM (1.2-3.4); ABSOLUTE MONOCYTE COUNT 0.2 /CUMM (0.10-0.60); BASOPHIL % 0 % (0.0-2.0); HEMATOCRIT 27.9 % (37-47); MEAN CORPUSCULAR HGB 27.8 PG (27.0-31.0); MEAN CORPUSCULAR HGB CONC 32.1 G/DL (33.0-37.0); MEAN CORPUSCULAR VOLUME 86.5 FL (81.0-99.0); MEAN PLATELET VOLUME 9.1 FL (7.4-10.4); PLATELET COUNT 290 /CUMM (130-400); RBC DISTRIBUTION WIDTH 16.5 % (11.5-14.5); RED BLOOD CELL CT 3.22 /CUMM (4.20-5.40); WHITE BLOOD CELL COUNT 6.4 /CUMM (4.8-10.8)
[2017-05-08 12:31] LABS: GRANULOCYTE % 83.4 % (42.2-75.2)
--- NOTE | 2017-05-08 15:57 | History & Physical ---
Pooja Gonzalez 05/08/17 1556: General Information and HPI MD Statement: I have seen and personally examined DWAYNE MACK and documented this H&P. The patient is a 66 year old F who presented with a patient stated chief complaint of [Cough]. Source of Information: patient, old records Exam Limitations: no limitations History of Present Illness: Ms. Mack is a 66-year-old female with PMH of hypertension, hyperlipidemia, diabetes, diabetic retinopathy, GERD, osteoarthritis, depression, anemia, status post appendectomy 2014, hernia repair with ventral hernia 2014, D/C recently, and recent Augmentin/Tylenol w/ Codeine treatment x 10 days for her chronic bronchitis, sent in by primary care physician for further evaluation with shortness of breath, cough and intermittent chest pain chest pain. She stated that her symptoms did not resolve after completion of her antibiotics treatment, she called her PCP Dr. Danny Gibbs, and was sending for chest x-ray for further evaluation. Patient bought Mucinex for herself 10 days ago, with mild relief on a cough but not really helpful. Patient denies any chest pain episodes ever, however endorsed burning/heaviness of the chest when she was walking for a while, her baseline ambulation could be from her ER room to the nursing station. Patient ambulated baseline with walker /cane at home, and it was independent for most of her daily activities. Patient stated that her bilaterally lower extremity was more swollen than before however attributed this to her diabetic neuropathy, which she was on gabapentin already. Patient said her body weight went up and down, and last check was around 305 pounds. She carried out minimal salt intake on low-sodium diet. Patient's fluid intake was usually 2 cups of coffee, one cup of tea etc. during the day, without much water intake and she had not been to the CHF clinic for a while. She did not really regularly check her blood pressure at home, due to her cough had broken. Patient had appointment with Dr. Starkey 2 weeks ago, but she missed appointment, and her next appointment will be scheduled for 06/22/2017 Patient Endorsed dizziness, sometimes headache, wheezing on/off, Mid-right ab pain on/off, constipation/diarrhea, cannot lie flat and needs 3 pillows to sleep , but denied fever/night sweat/mood change/insomnia, dietary/appetite change. Patient denied urinary abnormality, or other skin/musculoskeletal/neurological disorders. Allergies/Medications Allergies: Coded Allergies: NO KNOWN ALLERGIES (10/06/14) Home Med list Acetaminophen (Tylenol Extra Strength) 500 MG TABLET 1-2 TAB PO 4 TIMES/DAY PRN Leg Pain Carvedilol (Coreg) 6.25 MG TABLET 1 TAB PO BID HTN (Reported) Clonidine (Catapres) 0.2 MG TABLET 1 TAB PO DAILY HTN (Reported) Diclofenac Sodium (Voltaren) 1 % GEL..GRAM. 1 GM TOP 4 TIMES/DAY JOINT PAIN apply to your knees Escitalopram Oxalate (Lexapro) 10 MG TABLET 1.5 TAB PO AT BEDTIME depression (Reported) Furosemide 20 MG TABLET 1 TAB PO DAILY WATER RETENTION (Reported) Gabapentin (Neurontin) 300 MG CAPSULE 1 CAP PO TID NEUROPATHY (Reported) Glimepiride (Amaryl) 4 MG TABLET 1 TAB PO DAILY DIABETES (Reported) Lisinopril 20 MG TABLET 1 TAB PO DAILY HIGH BLOOD PRESSURE Loratadine (Claritin) 10 MG TABLET 1 TAB PO DAILY ALLERGIES (Reported) Montelukast Sodium (Singulair) 10 MG TABLET 1 TAB PO DAILY SOB (Reported) Pantoprazole Sodium (Protonix) 40 MG TABLET.DR 1 TAB PO DAILY GI (Reported) Sitagliptin Phos/Metformin HCl (Janumet 50-1,000 MG Tablet) 50 MG-1,000 MG TABLET 1 TAB PO BID DIABETES (Reported) Past History Travel History Traveled to [place] past 21 day No Medical History Neurological: peripheral neuropathy EENT: allergies, diabetic retinopathy Cardiovascular: hypertension, hyperlipidemia Respiratory: bronchitis Gastrointestinal: GERD, appendicitis ventral hernia Hepatic: NONE Renal: abnormal kidney function Musculoskeletal: sciatica, arthritis Psychiatric: depression Endocrine: diabetes Blood Disorders: anemia Cancer(s): NONE TELECOMMUNICATIONS SUPPORT/Reproductive: NONE History of MRSA: No History of VRE: No History of CDIFF: No Surgical History Surgical History: appendectomy, hernia repair-ventral, cyst removal from breast exploratory laparotomy Past Family/Social History Family History Relations & Conditions if any SON Hypertension SISTER, , Age 60+; Cause: Heart disease. FH: CHF (congestive heart failure) FH: diabetes mellitus, Onset: 60+. FH: myocardial infarction BROTHER FH: diabetes mellitus GRANDFATHER FH: diabetes mellitus Psychosocial History Who Do You Live With? self Services at Home: Home Health Aide Primary Language: Romanian Smoking Status: Former Smoker (quited 25yrs ago) ETOH Use: denies use, hx of alcohol, quitted at 41 Illicit Drug Use: denies illicit drug use, Former cocaine user, quitted at 41. Functional Ability ADLs Independent: dressing, eating, toileting, bathing. Ambulation: cane, walker, 2/2 neuropathy IADLs Independent: finances, food prep, telephone, transportation, medication admin. Needs Assist: shopping, housework. Review of Systems Review of Systems Constitutional: Reports: see HPI. Exam & Diagnostic Data Last 24 Hrs of Vital Signs/I&O Vital Signs Date Time Temp Pulse Resp B/P B/P Pulse O2 O2 Flow FiO2 Mean Ox Delivery Rate 05/08 1516 97.6 56 18 236/88 94 Room Air 05/08 1241 97.6 61 18 166/74 96 Room Air 05/08 1225 Room Air 05/08 1008 97.0 56 20 173/69 98 Room Air Intake & Output 05/08 1600 05/08 0800 05/08 0000 Intake Total Output Total Balance Patient 141.067 kg Weight Weight Reported by Patient Measurement Method Physical Exam General Appearance Alert, Oriented X3, Cooperative, No Acute Distress Skin No Breakdown, No Significant Lesion Skin Temp/Moisture Exam: Warm/Dry Sepsis Skin Exam (color): Normal for Ethnicity HEENT Atraumatic, PERRLA, EOMI Neck Supple, No JVD Cardiovascular Regular Rate Lungs Clear to Auscultation, Normal Air Movement Abdomen Normal Bowel Sounds, Soft, No Tenderness Neurological Normal Speech, Strength at 5/5 X4 Ext Extremities No Edema, Normal Pulses Last 24 Hrs of Labs/Martinez: Laboratory Tests 05/08/17 1540: Troponin I < 0.01 05/08/17 1213: Anion Gap 12, Estimated GFR 38 L, BUN/Creatinine Ratio 25.7 H, Glucose 194 H, Calcium 9.7, Total Bilirubin 0.4, AST 11 L, ALT 9, Alkaline Phosphatase 100, Troponin I < 0.01, Tht-J-Diawckluryf Pept 3430 H, Total Protein 7.0, Albumin 3.5, Globulin 3.5, Albumin/Globulin Ratio 1.0 L, CBC w Diff NO MAN DIFF REQ, RBC 3.22 L, MCV 86.5, MCH 27.8, MCHC 32.1 L, RDW 16.5 H, MPV 9.1, Gran % 83.4 H, Lymphocytes % 12.8 L, Monocytes % 2.8, Eosinophils % 1.0, Basophils % 0, Absolute Granulocytes 5.3, Absolute Lymphocytes 0.8 L, Absolute Monocytes 0.2, Absolute Eosinophils 0.1, Absolute Basophils 0 Assessment/Plan Assessment: Ms. Mack is a 66-year-old female with PMH of hypertension, hyperlipidemia, diabetes, diabetic retinopathy, GERD, osteoarthritis, depression, anemia, status post appendectomy 2014, hernia repair with ventral hernia 2014, D/C recently, and recent Augmentin/Tylenol w/ Codeine treatment x 10 days for her chronic bronchitis, sent in by primary care physician for further evaluation with shortness of breath, cough and intermittent chest pain chest pain. She stated that her symptoms did not resolve after completion of her antibiotics treatment, she called her PCP Dr. Danny Gibbs, and was sending for chest x-ray for further evaluation. Patient bought Mucinex for herself 10 days ago, with mild relief on a cough but not really helpful. On admission, Vitals: Afebrile, heart rate 60s, BP 166/74 to 246/88, O2 sat 94% -CBC: WBC 6.4, H/H8 0.9/27.9, PLT 290 -BMP: NA 142, K5.0, CR 1.4, glucose 194, proBNP 3430 (854 in 05/2016, troponin negative 1 -Misc: Echo 12/02/2016: 1. Aortic sclerosis is present with no valvular stenosis or insufficiency. 2. Mitral leaflet thickening is present with moderate anular calcification and minimal mitral insufficiency with mild left atrial enlargement. 3. There is no significant pericardial fluid present. 4. The left ventricular chamber size is normal with moderate concentric hypertrophy and a normal ejection fraction with no resting wall motion abnormalities. 5. Minimal to mild tricuspid and pulmonic insufficiency are present with no evidence of pulmonary hypertension. -CXR: Mild cardiomegaly and pulmonary venous congestion without overt pulmonary edema. -EKG: Normal sinus rhythm without significant ST-T abnormalities. -Interventions in ER: Lasix 20 mg IV 1, hydralazine 10 mg IV x1 Assessment: Ms. Mack is a 66-year-old female with PMH of hypertension, hyperlipidemia, diabetes, diabetic retinopathy, GERD, osteoarthritis, depression, anemia, status post appendectomy 2014, hernia repair with ventral hernia 2014, D/C recently, and recent Augmentin/Tylenol w/ Codeine treatment x 10 days for her chronic bronchitis, sent in by primary care physician for further evaluation with shortness of breath, cough and intermittent chest pain chest pain. According to the patient and objective physical examination, her chest pressure/ possible pain was nonreproducible, however only occurs when she walks for a while. It is unclear at this moment whether her chest pain was secondary to her anemia/CHF extubation pending further evaluation/bronchitis. Since patient did not endorse any excruciating headaches/vision change/muscle weakness, her hypertension would be classified as hypertensive urgency, and will be treated accordingly. Problem list #Hypertensive urgency #Chest pain secondary to anemia/CHF/chronic bronchitis pending rule out #Type 2 diabetes #PMH of hyperlipidemia, neuropathy, GERD, osteoarthritis, depression Plan - Admit to Telemetry -TRC/nebulizer as needed -Start Hydralazine 25mg TID PO to control BP, however, watch for tachycardia from synegistic use of Clonodine. Lexapro 50 mg daily, gabapentin 300 mg 3 times daily, - Pending Cardiology consult by Dr. Nur DVT prophylaxis Heparin + ALPS Heart Healthy Diet Full Code As Ranked By This Provider Problem List: 1. (HFpEF) heart failure with preserved ejection fraction Core Measures/Misc (10/30) Acute Coronary Syndrome ACS Diagnosis: No Congestive Heart Failure Congestive Heart Failure Diagnosis No Cerebrovascular Accident CVA/TIA Diagnosis: No VTE (View Protocol) VTE Risk Factors Age>40 No Mechanical VTE Prophylaxis d/t N/A MechProphylax Ordered No VTE Pharm Prophylaxis d/t NA PharmProphylax ordered Sepsis (View protocol) Sepsis Present: No Paolo Briones MD 05/08/17 3429: Resident Review Statement Resident Statement: examined this patient, discussed with chief internal auditor, agreed with chief internal auditor Other Findings: Patient is a 66-year-old female with past medical history of hypertension, hyperlipidemia, type 2 diabetes with retinopathy, neuropathy, chronic kidney disease presented with chief complaints of dry cough, chest pain since last 1 month. According to the patient she visited her primary care doctor for cough, around a month ago and was given tablet Augmentin for total 10 days without any benefit . she did follow up and advised to take the codeine and the Tylenol. But she refused for it and she started taking Mucinex on his own for around 10 days, without any benefit. Recently since couple of days she started having chest pain which she defined as a pressure located substernally and increases on exertion especially on the walking couple of steps and relieved by rest. She also suggests that her cough got worse especially in the night and she needed around 2 or 3 pillow can always. She also noticed the swelling in her legs. She is compliant with her medications and the salt intake. She denies excessive water intake. She did not follow CHF clinic since many months. She occasionally heard wheezing but denies for any change in her chest pain with inspiration or expiration.She recently gained weight ED course - Vital signs -temperature 97.0, pulse 56, respiratory 20, blood pressure 173/69, SPO2 98% on room air. Blood workup showed - Hemoglobin 8.9, hematocrit 27.9, platelet count 290, sodium 142, potassium 5.0, chloride 103, BUN 36, creatinine 1.4, GFR 38, glucose 194, calcium 9.7, total bilirubin 0.4, AST 11, ALT 9, alkaline phosphatase 100, troponin I less than 0.01, proBNP 3430, total protein 7.0, albumin 2.5, globulin 3.5 Chest x-ray -Mild cardiomegaly and pulmonary venous congestion without overt pulmonary edema. assessment and plan - Hypertensive urgency - * According to the patient she always gets high blood pressure in the office. * We will observe the patient to telemetry * Regular monitoring of the blood pressure * We will start her on low-dose tablet hydralazine 25 mg 3 times daily/4 times daily as needed. Chest pain possibly secondary to anemia, exacerbated by CHF/bronchitis * Observed in telemetry floor * Keep head end of the bed elevated * Daily weight measurement * Injection Lasix 20 mg IV OD * strict intake output charting Chronic bronchitis * We will hold the lisinopril for now * TRC/nebulization Type 2 diabetes - * Fingerstick 3 times daily/at bedtime * NovoLog according to the sliding scale Chronic medical condition -hyperlipidemia, GERD, osteoarthritis, depression, anemia, * We will continue on her home medication including gabapentin, omeprazole, iron supplementation., Citalopram CODE STATUS - full code Demetris Naylor MD 05/08/172: Attending Review Statement Attending Statement Attending Statement: examined this patient, discuss w/resident/PA/SHREDDED FILLER MACHINE WRAPPER LAYER, agreed w/resident/PA/SHREDDED FILLER MACHINE WRAPPER LAYER, reviewed EMR data (avail), reviewed images, amended to note Attending Assessment/Plan: The patient is a 66 yo female with h/o HTN, HL, DM2 (retinopathy & neuropathy), diastolic CHF (EF 65%), GERD, anemia, depression, & asthma who presented in the [facility] ED with c/o persistent cough & congestion c/w chronic bronchitis, & intermittent chest discomfort. Her chest discomfort was described as burning/ heaviness and occurred while ambulating. She also noted slight increase in her chronic LE edema. She has not been seen at the CHF clinic in a while and missed a recent appointment with her traffic maintenance supervisor (Dr. Nur). Her BP in the ED was initially 173/69 and increased to 236/88 and she was given IV hydralazine. Her initial troponin was negative. She was also given Lasix 20 mg IV. Physical Exam: VS: T 97.0, P 56, R 20, BP 173/69-236/88, PO 98%RA HEENT: eyes- PERRLA, EOMI gurvinder- moist mucosa w/o lesions Neck: no JVD/bruits Chest: diminished breath sounds at bases, otherwise clear Cor: RRR nl S1, S2 w/o murm Abd: BS+, soft, NT, h/o ventral hernia, no masses or HSM Ext: tr edema, pulses 1+ Neuro: distal LE diminished sensation, otherwise intact Labs/Tests- as above Impression/Plan: #Chest Pain- in diabetic with multiple risk factors. Initial troponin negative. May be muscular pain related to bronchitis. Plan: Admit to telemetry floor- check serial troponin levels. Cardiology consult Dr. Nur. Continue usual meds. #Hypertensive Urgency- as above, the patient's BP luis while in ED requiring IV meds. Plan: Continue meds and follow. Hydralazine po. Continue Carvedilol. #CHF- acute and chronic diastolic CHF (preserved EF CHF). Patient appears mildly volume overloaded. Plan: Agree with IV Lasix (20 mg given in ED). Follow I/O's, weights, BEP-, cardiology input. #Chronic Bronchitis- has continued symptoms. Had improved post Augmentin. Has had chronic cough since begun on Lisinopril (?COLT cough). Plan: Agree with holding Lisinopril. TRC nebs at present and follow. #DM2- with neuropathy- on gabapentin. Plan: Continue to follow glucoscans and use insulin. Patient on multiple oral agents and need to reconsider. #Depression- was tearful in ED regarding condition. Responded well to encouragement that she will improve. Plan: Continue Lexapro/Gabapentin. May need psych input. #GERD- on Protonix. Plan: Substitute Omeprazole in hospital and continue.
--- NOTE | 2017-05-08 22:04 | Admission Certification ---
Admission Certification Certification Statement - As attending physician, I certify that at the time of - admission, based on clinical presentation, severity of - symptoms, need for further diagnostic testing and - therapeutic interventions, and risk of adverse outcomes - without in-hospital treatment, in my clinical assessment, - this patient requires an acute hospital stay for a minimum - of two nights or longer. I have also considered psychsocial - factors such as support system, advanced age, financial - issues, cognitive issues, and failed out-patient treatments, - past re-admission history, safety of patient, and lack of - compliance as applicable. Specific rationale supporting this admission is: The patient presents with chest pain, bronchitis/cough symptoms, slight volume overload (CHF) and hypertensive urgency (BP 236/88). Needs telemetry admission, IV Lasix, evaluation of BP meds. Cardiology consult Dr. Nur.
[2017-05-08 22:08] VITALS: BP 140/58
[2017-05-09 06:41] VITALS: BP 130/70
--- NOTE | 2017-05-09 07:46 | PN- Housestaff ---
Subjective Follow-up For: #Hypertensive urgency #Chest pain secondary to anemia/CHF/chronic bronchitis pending rule out #Type 2 diabetes #PMH of hyperlipidemia, neuropathy, GERD, osteoarthritis, depression Tele-Events Since Last Visit: SB/NSR 50-80 Subjective: No overnight event. Patient felt improved overall, and denied any chest tightness/SOB overnight. No other specific complaint. [place] less frequent cough. Review of Systems Constitutional: Reports: see HPI. Objective Last 24 Hrs of Vital Signs/I&O Vital Signs Date Time Temp Pulse Resp B/P B/P Pulse O2 O2 Flow FiO2 Mean Ox Delivery Rate 05/09 1103 60 160/60 05/09 1103 60 160/60 05/09 1103 60 160/60 05/09 0641 98.4 54 20 130/70 94 Room Air 05/08 2302 66 148/64 05/08 2302 64 148/64 05/088 98.2 64 18 140/58 98 Room Air 05/08 2046 Room Air 05/09 2007 97.6 64 18 146/78 97 Room Air 05/08 1825 97.9 62 18 172/74 05/08 1825 97.9 62 18 172/74 96 05/08 1620 236/88 05/08 1516 97.6 56 18 236/88 94 Room Air 05/08 1241 97.6 61 18 166/74 96 Room Air 05/08 1225 Room Air Intake & Output 05/09 1600 05/09 0800 05/09 0000 Intake Total 480 240 Output Total 800 Balance 480 -560 Intake, Oral 480 240 Output, Urine 800 Patient 138.005 kg Weight Weight Bed scale Measurement Method Physical Exam General Appearance: Alert, Oriented X3, Cooperative, No Acute Distress Cardiovascular: Regular Rate Lungs: Clear to Auscultation, Normal Air Movement Abdomen: Soft, No Tenderness Neurological: Normal Speech Extremities: No Edema, Normal Pulses Current Medications: Current Medications Sig/Laure Start time Last Medication Dose Route Stop Time Status Admin Carvedilol 6.25 MG BID 05/08 2199 AC 05/09 PO 1103 Clonidine 0 .STK-MED ONE 05/08 1834 DC PO Clonidine 0.2 MG DAILY 05/08 1702 AC 05/09 PO 1103 Escitalopram Oxalate 15 MG AT BEDTIME 05/08 2199 AC 05/08 PO 2303 Ferrous Sulfate 325 MG BID 05/08 2199 AC 05/09 PO 1103 Furosemide 20 MG DAILY 05/09 1000 AC 05/09 IV 1102 Furosemide 0 .STK-MED ONE 05/08 1649 DC IV Furosemide 20 MG ONCE ONE 05/08 1545 DC 05/08 IV 05/08 1546 1620 Gabapentin 0 .STK-MED ONE 05/08 1835 DC PO Gabapentin 300 MG TID 05/08 1703 AC 05/09 PO 1103 Hydralazine HCl 25 MG TID 05/08 2200 AC 05/09 PO 1103 Hydralazine HCl 0 .STK-MED ONE 05/08 1649 DC .ROUTE Hydralazine HCl 10 MG ONCE ONE 05/08 1530 DC 05/08 IV 05/08 1531 1620 Insulin Aspart 0 TIDAC 05/09 0800 AC SC Pantoprazole Sodium 40 MG DAILY 05/08 1929 AC 05/09 IV 1102 Last 24 Hrs of Lab/Martinez Results Last 24 Hrs of Labs/Mics: Laboratory Tests 05/09/17 0752: Anion Gap 11, Estimated GFR 32 L, BUN/Creatinine Ratio 21.9, Troponin I Pending , CBC w Diff NO MAN DIFF REQ, RBC 2.96 L, MCV 86.6, MCH 27.8, MCHC 32.1 L, RDW 16.3 H, MPV 9.6, Gran % 66.7, Lymphocytes % 22.0, Monocytes % 8.6, Eosinophils % 2.3, Basophils % 0.4, Absolute Granulocytes 3.5, Absolute Lymphocytes 1.2, Absolute Monocytes 0.5, Absolute Eosinophils 0.1, Absolute Basophils 0 05/08/17 1540: Troponin I < 0.01 05/08/17 1213: Anion Gap 12, Estimated GFR 38 L, BUN/Creatinine Ratio 25.7 H, Glucose 194 H, Calcium 9.7, Total Bilirubin 0.4, AST 11 L, ALT 9, Alkaline Phosphatase 100, Troponin I < 0.01, Zqv-L-Lzuszfmbgkf Pept 3430 H, Total Protein 7.0, Albumin 3.5, Globulin 3.5, Albumin/Globulin Ratio 1.0 L, CBC w Diff NO MAN DIFF REQ, RBC 3.22 L, MCV 86.5, MCH 27.8, MCHC 32.1 L, RDW 16.5 H, MPV 9.1, Gran % 83.4 H, Lymphocytes % 12.8 L, Monocytes % 2.8, Eosinophils % 1.0, Basophils % 0, Absolute Granulocytes 5.3, Absolute Lymphocytes 0.8 L, Absolute Monocytes 0.2, Absolute Eosinophils 0.1, Absolute Basophils 0 Assessment/Plan Assessment: Ms. Mack is a 66-year-old female with PMH of hypertension, hyperlipidemia, diabetes, diabetic retinopathy, GERD, osteoarthritis, depression, anemia, status post appendectomy 2014, hernia repair with ventral hernia 2014, D/C recently, and recent Augmentin/Tylenol w/ Codeine treatment x 10 days for her chronic bronchitis, sent in by primary care physician for further evaluation with shortness of breath, cough and intermittent chest pain chest pain. According to the patient and objective physical examination, her chest pressure/ possible pain was nonreproducible, however only occurs when she walks for a while. It is unclear at this moment whether her chest pain was secondary to her anemia/CHF extubation pending further evaluation/bronchitis. Since patient did not endorse any excruciating headaches/vision change/muscle weakness, her hypertension would be classified as hypertensive urgency, and will be treated accordingly. Problem list #Hypertensive urgency #Chest pain secondary to anemia/CHF/chronic bronchitis pending rule out #Type 2 diabetes #PMH of hyperlipidemia, neuropathy, GERD, osteoarthritis, depression Plan -Continued telemetry monitoring Lasix. -TRC/nebulizer as needed - Will continue Lasix 20 mg IV -Will continue Hydralazine 25mg TID PO to control BP, however, watch for tachycardia from synegistic use of Clonodine. currently showed some improvements. - Pending cardio input on switching to ARBs. Lexapro 50 mg daily, gabapentin 300 mg 3 times daily, DVT prophylaxis Heparin + ALPS Heart Healthy Diet Full Code Problem List: 1. Hypertensive urgency Pain Ratin Pain Location: NA Pain Goal: Remain pain free Pain Plan: see AP Tomorrow's Labs & Rationales: NA
[2017-05-09 09:05] LABS: ABSOLUTE BASOPHIL COUNT 0 /CUMM (0.0-0.2); ABSOLUTE EOSINOPHIL COUNT 0.1 /CUMM (0.0-0.7); ABSOLUTE GRANULOCYTE CT 3.5 /CUMM (1.4-6.5); ABSOLUTE LYMPH COUNT 1.2 /CUMM (1.2-3.4); ABSOLUTE MONOCYTE COUNT 0.5 /CUMM (0.10-0.60); BASOPHIL % 0.4 % (0.0-2.0); EOSINOPHIL % 2.3 % (0-5); GRANULOCYTE % 66.7 % (42.2-75.2); HEMATOCRIT 25.7 % (37-47); MEAN CORPUSCULAR HGB 27.8 PG (27.0-31.0); MEAN CORPUSCULAR HGB CONC 32.1 G/DL (33.0-37.0); MEAN CORPUSCULAR VOLUME 86.6 FL (81.0-99.0); MEAN PLATELET VOLUME 9.6 FL (7.4-10.4); PLATELET COUNT 271 /CUMM (130-400); RBC DISTRIBUTION WIDTH 16.3 % (11.5-14.5); RED BLOOD CELL CT 2.96 /CUMM (4.20-5.40); WHITE BLOOD CELL COUNT 5.3 /CUMM (4.8-10.8)
--- NOTE | 2017-05-09 11:59 | PN- Att Addend ---
Attending Addendum Attending Brief Note Patient seen and examined. Plan of care discussed with the medical team and the patient. Available lab work and radiology test reports were reviewed. Patient is awake alert and sitting at edge of her bed. She denies any headache or blurred vision or any neurological symptoms. She complains of mild difficulty breathing. History was reviewed with the patient again. Exam: General: Patient is obese, awake alert oriented without any distress CVS: S1 plus S2 without any murmur or gallops Chest: Few scattered crepitation without any wheeze. There is no respiratory distress. Abdomen: Soft non-tender, bowel sound present, no guarding or rebound FORMULATION CHEMIST: Awake alert oriented without any focal neuro deficit and follows commands appropriately Extremities: No edema; no clubbing or cyanosis noted Assessment #Hypertensive urgency- blood pressure is improved #Chest pain secondary to anemia/CHF/chronic bronchitis pending rule out #Type 2 diabetes #PMH of hyperlipidemia, neuropathy, GERD, osteoarthritis, depression # Angina on exertion- we'll need evaluation by cardiology although patient previously had cardiac workup done # Chronic renal failure Plan * Continue IV Lasix * Await cardiac input * Monitor input output and daily weights * Change IV Protonix to oral * Restart lisinopril- coughing likely is related to her CH; if upon restarting she develops increased coughing then we will switch to ARB Current Medications Sig/Laure Start time Last Medication Dose Route Stop Time Status Admin Carvedilol 6.25 MG BID 05/08 2199 AC 05/09 PO 1103 Clonidine 0 .STK-MED ONE 05/08 1834 DC PO Clonidine 0.2 MG DAILY 05/08 1702 AC 05/09 PO 1103 Escitalopram Oxalate 15 MG AT BEDTIME 05/08 2199 AC 05/08 PO 2303 Ferrous Sulfate 325 MG BID 05/08 2199 AC 05/09 PO 1103 Furosemide 20 MG DAILY 05/09 1000 AC 05/09 IV 1102 Furosemide 0 .STK-MED ONE 05/08 1649 DC IV Furosemide 20 MG ONCE ONE 05/08 1545 DC 05/08 IV 05/08 1546 1620 Gabapentin 0 .STK-MED ONE 05/08 1835 DC PO Gabapentin 300 MG TID 05/08 1703 AC 05/09 PO 1103 Hydralazine HCl 25 MG TID 05/08 2200 AC 05/09 PO 1103 Hydralazine HCl 0 .STK-MED ONE 05/08 1649 DC .ROUTE Hydralazine HCl 10 MG ONCE ONE 05/08 1530 DC 05/08 IV 05/08 1531 1620 Insulin Aspart 0 TIDAC 05/09 0800 AC SC Pantoprazole Sodium 40 MG DAILY 05/08 1929 AC 05/09 IV 1102 Laboratory Tests 05/09/17 0752: Anion Gap 11, Estimated GFR 32 L, BUN/Creatinine Ratio 21.9, Troponin I < 0.01, CBC w Diff NO MAN DIFF REQ, RBC 2.96 L, MCV 86.6, MCH 27.8, MCHC 32.1 L, RDW 16.3 H, MPV 9.6, Gran % 66.7, Lymphocytes % 22.0, Monocytes % 8.6, Eosinophils % 2.3, Basophils % 0.4, Absolute Granulocytes 3.5, Absolute Lymphocytes 1.2, Absolute Monocytes 0.5, Absolute Eosinophils 0.1, Absolute Basophils 0 05/08/17 1540: Troponin I < 0.01 05/08/17 1213: Anion Gap 12, Estimated GFR 38 L, BUN/Creatinine Ratio 25.7 H, Glucose 194 H, Calcium 9.7, Total Bilirubin 0.4, AST 11 L, ALT 9, Alkaline Phosphatase 100, Troponin I < 0.01, Idd-Q-Ssgkcgfzwtl Pept 3430 H, Total Protein 7.0, Albumin 3.5, Globulin 3.5, Albumin/Globulin Ratio 1.0 L, CBC w Diff NO MAN DIFF REQ, RBC 3.22 L, MCV 86.5, MCH 27.8, MCHC 32.1 L, RDW 16.5 H, MPV 9.1, Gran % 83.4 H, Lymphocytes % 12.8 L, Monocytes % 2.8, Eosinophils % 1.0, Basophils % 0, Absolute Granulocytes 5.3, Absolute Lymphocytes 0.8 L, Absolute Monocytes 0.2, Absolute Eosinophils 0.1, Absolute Basophils 0 Vital Signs Date Time Temp Pulse Resp B/P B/P Pulse O2 O2 Flow FiO2 Mean Ox Delivery Rate 05/09 1103 60 160/60 05/09 1103 60 160/60 05/09 1103 60 160/60 05/09 0641 98.4 54 20 130/70 94 Room Air 05/08 2302 66 148/64 05/08 2302 64 148/64 03/26 2208 98.2 64 18 140/58 98 Room Air 05/08 2046 Room Air 05/09 2007 97.6 64 18 146/78 97 Room Air 05/08 1825 97.9 62 18 172/74 05/08 1825 97.9 62 18 172/74 96 05/08 1620 236/88 05/08 1516 97.6 56 18 236/88 94 Room Air 05/08 1241 97.6 61 18 166/74 96 Room Air 05/08 1225 Room Air Intake & Output 05/09 1600 05/09 0800 05/09 0000 Intake Total 480 240 Output Total 800 Balance 480 -560 Intake, Oral 480 240 Output, Urine 800 Patient 304 lb Weight Weight Bed scale Measurement Method Chest x-ray May 08 #Hypertensive urgency #Chest pain secondary to anemia/CHF/chronic bronchitis pending rule out #Type 2 diabetes #PMH of hyperlipidemia, neuropathy, GERD, osteoarthritis, depression
--- NOTE | 2017-05-09 12:22 | Cons- Cardiology ---
General Information and HPI Consulting Request Date of Consult: 05/09/17 Requested By: Cleo BOWMAN,Emanuel Reason for Consult: Hypertensive urgency Source of Information: patient, old records Exam Limitations: no limitations History of Present Illness: Ms. Mack is a 66-year-old female with PMH of hypertension, hyperlipidemia, diabetes, diabetic retinopathy, GERD, osteoarthritis, depression, anemia, status post appendectomy 2014, hernia repair with ventral hernia 2014, D/C recently, and recent Augmentin/Tylenol w/ Codeine treatment x 10 days for her chronic bronchitis, sent in by primary care physician for further evaluation with shortness of breath, cough and intermittent chest pain chest pain. She stated that her symptoms did not resolve after completion of her antibiotics treatment, she called her PCP Dr. Danny Gibbs, and was sending for chest x-ray for further evaluation. I was asked see the patient for further assistance with blood pressure management. Allergies/Medications Allergies: Coded Allergies: NO KNOWN ALLERGIES (10/06/14) Home Med List: Acetaminophen (Tylenol Extra Strength) 500 MG TABLET 1-2 TAB PO 4 TIMES/DAY PRN Leg Pain Carvedilol (Coreg) 6.25 MG TABLET 1 TAB PO BID HTN (Reported) Clonidine (Catapres) 0.2 MG TABLET HTN (Reported) Diclofenac Sodium (Voltaren) 1 % GEL..GRAM. 1 GM TOP 4 TIMES/DAY JOINT PAIN apply to your knees Escitalopram Oxalate (Lexapro) 10 MG TABLET 1.5 TAB PO AT BEDTIME depression (Reported) Furosemide 20 MG TABLET 1 TAB PO DAILY WATER RETENTION (Reported) Gabapentin (Neurontin) 300 MG CAPSULE 1 CAP PO TID NEUROPATHY (Reported) Glimepiride (Amaryl) 4 MG TABLET 1 TAB PO DAILY DIABETES (Reported) Loratadine (Claritin) 10 MG TABLET 1 TAB PO DAILY ALLERGIES (Reported) Losartan Potassium 50 MG TABLET 1 TAB PO DAILY HTN Montelukast Sodium (Singulair) 10 MG TABLET 1 TAB PO DAILY SOB (Reported) Pantoprazole Sodium (Protonix) 40 MG TABLET.DR 1 TAB PO DAILY GI (Reported) Sitagliptin Phos/Metformin HCl (Janumet 50-1,000 MG Tablet) 50 MG-1,000 MG TABLET 1 TAB PO BID DIABETES (Reported) Current Medications: Current Medications Sig/Laure Start time Last Medication Dose Route Stop Time Status Admin Carvedilol 6.25 MG BID 05/080 AC 05/09 PO 1103 Clonidine 0 .STK-MED ONE 05/08 1834 DC PO Clonidine 0.2 MG DAILY 05/08 1702 AC 05/09 PO 1103 Escitalopram Oxalate 15 MG AT BEDTIME 05/08 2200 AC 05/08 PO 2303 Ferrous Sulfate 325 MG BID 05/08 2200 AC 05/09 PO 1103 Furosemide 20 MG DAILY 05/09 1000 AC 05/09 IV 1102 Furosemide 0 .STK-MED ONE 05/08 1649 DC IV Furosemide 20 MG ONCE ONE 05/08 1545 DC 05/08 IV 05/08 1546 1620 Gabapentin 0 .STK-MED ONE 05/08 1835 DC PO Gabapentin 300 MG TID 05/08 1703 AC 05/09 PO 1103 Hydralazine HCl 25 MG TID 05/08 2200 AC 05/09 PO 1103 Hydralazine HCl 0 .STK-MED ONE 05/08 1649 DC .ROUTE Hydralazine HCl 10 MG ONCE ONE 05/08 1530 DC 05/08 IV 05/08 1531 1620 Insulin Aspart 0 TIDAC 05/09 0800 AC 05/09 SC 1215 Pantoprazole Sodium 40 MG DAILY 05/08 1929 AC 05/09 IV 1102 Past History Travel History Traveled to [place] past 21 day No Medical History Blood Transfusion Hx: Yes Neurological: peripheral neuropathy EENT: allergies, diabetic retinopathy Cardiovascular: hypertension, hyperlipidemia Respiratory: bronchitis Gastrointestinal: GERD, appendicitis ventral hernia Hepatic: NONE Renal: abnormal kidney function Musculoskeletal: sciatica, arthritis Psychiatric: depression Endocrine: diabetes Blood Disorders: anemia Cancer(s): NONE 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 FH: CHF (congestive heart failure) FH: diabetes mellitus, Onset: 60+. FH: myocardial infarction BROTHER FH: diabetes mellitus GRANDFATHER FH: diabetes mellitus Psychosocial History Where Do You Live? Home Who Do You Live With? self Services at Home: Home Health Aide Primary Language: Hebrew Smoking Status: Former Smoker (quited 25yrs ago) ETOH Use: denies use, hx of alcohol, quitted at 41 Illicit Drug Use: denies illicit drug use, Former cocaine user, quitted at 41. Functional Ability ADLs Independent: dressing, eating, toileting, bathing. Ambulation: cane, walker, 2/2 neuropathy IADLs Independent: finances, food prep, telephone, transportation, medication admin. Needs Assist: shopping, housework. Exam & Diagnostic Data Vital Signs and I&O Vital Signs Date Time Temp Pulse Resp B/P B/P Pulse O2 O2 Flow FiO2 Mean Ox Delivery Rate 05/09 1103 60 160/60 05/09 1103 60 160/60 05/09 1103 60 160/60 05/09 0641 98.4 54 20 130/70 94 Room Air 05/08 2302 66 148/64 05/08 2302 64 148/64 05/08 2208 98.2 64 18 140/58 98 Room Air 05/08 2046 Room Air 05/09 2007 97.6 64 18 146/78 97 Room Air 05/08 1825 97.9 62 18 172/74 05/08 1825 97.9 62 18 172/74 96 05/08 1620 236/88 05/08 1516 97.6 56 18 236/88 94 Room Air 05/08 1241 97.6 61 18 166/74 96 Room Air 05/08 1225 Room Air Intake & Output 05/09 1600 05/09 0800 05/09 0000 05/08 1600 05/08 0800 05/08 0000 Intake Total 480 240 Output Total 800 Balance 480 -560 Intake, Oral 480 240 Output, Urine 800 Patient 304 lb 311 lb Weight Weight Bed scale Reported by Patient Measurement Method Physical Exam: General Appearance Alert, Oriented X3, Cooperative, No Acute Distress Skin normal HEENT Atraumatic, PERRLA, EOMI Neck Supple, No JVD Cardiovascular regular S1, S2, soft S4, 2/6 systolic murmur left upper sternal border Lungs Clear to Auscultation, Normal Air Movement Abdomen Normal Bowel Sounds, Soft, No Tenderness Neurological Normal Speech, Strength at 5/5 X4 Ext Extremities No Edema, Normal Pulses Labs/Martinez Results: Laboratory Tests 05/09 05/08 0752 1540 Chemistry Sodium (137 - 145 mmol/L) 141 Potassium (3.5 - 5.1 mmol/L) 4.7 Chloride (98 - 107 mmol/L) 103 Carbon Dioxide (22 - 30 mmol/L) 28 Anion Gap (5 - 16) 11 BUN (7 - 17 mg/dL) 35 H Creatinine (0.5 - 1.0 mg/dL) 1.6 H Estimated GFR (>60 ml/min) 32 L BUN/Creatinine Ratio (7 - 25 %) 21.9 Troponin I (< 0.11 ng/ml) < 0.01 < 0.01 Hematology CBC w Diff NO MAN DIFF REQ WBC (4.8 - 10.8 /CUMM) 5.3 RBC (4.20 - 5.40 /CUMM) 2.96 L Hgb (12.0 - 16.0 G/DL) 8.3 L Hct (37 - 47 %) 25.7 L MCV (81.0 - 99.0 FL) 86.6 MCH (27.0 - 31.0 PG) 27.8 MCHC (33.0 - 37.0 G/DL) 32.1 L RDW (11.5 - 14.5 %) 16.3 H Plt Count (130 - 400 /CUMM) 271 MPV (7.4 - 10.4 FL) 9.6 Gran % (42.2 - 75.2 %) 66.7 Lymphocytes % (20.5 - 51.1 %) 22.0 Monocytes % (1.7 - 9.3 %) 8.6 Eosinophils % (0 - 5 %) 2.3 Basophils % (0.0 - 2.0 %) 0.4 Absolute Granulocytes (1.4 - 6.5 /CUMM) 3.5 Absolute Lymphocytes (1.2 - 3.4 /CUMM) 1.2 Absolute Monocytes (0.10 - 0.60 /CUMM) 0.5 Absolute Eosinophils (0.0 - 0.7 /CUMM) 0.1 Absolute Basophils (0.0 - 0.2 /CUMM) 0 05/08 1213 Chemistry Sodium (137 - 145 mmol/L) 142 Potassium (3.5 - 5.1 mmol/L) 5.0 Chloride (98 - 107 mmol/L) 103 Carbon Dioxide (22 - 30 mmol/L) 27 Anion Gap (5 - 16) 12 BUN (7 - 17 mg/dL) 36 H Creatinine (0.5 - 1.0 mg/dL) 1.4 H Estimated GFR (>60 ml/min) 38 L BUN/Creatinine Ratio (7 - 25 %) 25.7 H Glucose (65 - 99 mg/dL) 194 H Calcium (8.4 - 10.2 mg/dL) 9.7 Total Bilirubin (0.2 - 1.3 mg/dL) 0.4 AST (14 - 36 U/L) 11 L ALT (9 - 52 U/L) 9 Alkaline Phosphatase (<127 U/L) 100 Troponin I (< 0.11 ng/ml) < 0.01 [id number] Pept (<125 pg/mL) 3430 H Total Protein (6.3 - 8.2 g/dL) 7.0 Albumin (3.5 - 5.0 g/dL) 3.5 Globulin (1.9 - 4.2 gm/dL) 3.5 Albumin/Globulin Ratio (1.1 - 2.2 %) 1.0 L Hematology CBC w Diff NO MAN DIFF REQ WBC (4.8 - 10.8 /CUMM) 6.4 RBC (4.20 - 5.40 /CUMM) 3.22 L Hgb (12.0 - 16.0 G/DL) 8.9 L Hct (37 - 47 %) 27.9 L MCV (81.0 - 99.0 FL) 86.5 MCH (27.0 - 31.0 PG) 27.8 MCHC (33.0 - 37.0 G/DL) 32.1 L RDW (11.5 - 14.5 %) 16.5 H Plt Count (130 - 400 /CUMM) 290 MPV (7.4 - 10.4 FL) 9.1 Gran % (42.2 - 75.2 %) 83.4 H Lymphocytes % (20.5 - 51.1 %) 12.8 L Monocytes % (1.7 - 9.3 %) 2.8 Eosinophils % (0 - 5 %) 1.0 Basophils % (0.0 - 2.0 %) 0 Absolute Granulocytes (1.4 - 6.5 /CUMM) 5.3 Absolute Lymphocytes (1.2 - 3.4 /CUMM) 0.8 L Absolute Monocytes (0.10 - 0.60 /CUMM) 0.2 Absolute Eosinophils (0.0 - 0.7 /CUMM) 0.1 Absolute Basophils (0.0 - 0.2 /CUMM) 0 Diagnostic Data CXR Results FINDINGS: There is mild enlargement of the cardiac silhouette, similar to prior exam. The mediastinal silhouette is normal. Atherosclerotic calcifications of the aortic arch noted. Mild pulmonary venous congestion in the central perihilar region noted. No overt pulmonary edema. Linear densities at the left lung base noted and could represent atelectasis. No pleural effusion. No pneumothorax. Degenerative changes of the shoulder joints and mild anterior endplate osteophytosis of multiple thoracic spine noted. IMPRESSION: Mild cardiomegaly and pulmonary venous congestion without overt pulmonary edema. Assessment/Plan Assessment/Plan Assessment: 1. Hypertensive urgency 2. Chest discomfort 3. Heart murmur 4. Possible acute on chronic HFpEF 5. Worsening anemia 6. Diabetes 7. History of GERD Recommendations: -Monitor on telemetry -Serial troponins have been negative, ECG unchanged -Consider follow-up echocardiogram to 2 increased heart murmur -Further workup for cause of underlying anemia -Lisinopril held due to persistent cough -Continue current blood pressure medications for now -Ultimately, consider further blood pressure medication changes such as increasing carvedilol dose and avoiding 3 times a day medications due to patient compliance issues Consult Acknowledgment - Thank you for your consult request.
[2017-05-09 14:00] VITALS: BP 126/72
[2017-05-09 16:23] VITALS: BP 148/70
[2017-05-09 21:09] VITALS: BP 118/70
[2017-05-10 06:48] VITALS: BP 160/76
--- NOTE | 2017-05-10 07:44 | PN- Housestaff ---
Subjective Follow-up For: #Hypertensive urgency #Chest pain secondary to anemia/CHF/chronic bronchitis pending rule out #Type 2 diabetes #PMH of hyperlipidemia, neuropathy, GERD, osteoarthritis, depression Tele-Events Since Last Visit: SB/NSR 50s-70s Subjective: No overnight event. Patient slept well in general and woke up occasionally when she got choked by phlegm, but denied any gasping for air/increased coughing. Patient would not want to take the Lisinopril any more. NO other specific complaint. Review of Systems Constitutional: Reports: see HPI. Objective Last 24 Hrs of Vital Signs/I&O Vital Signs Date Time Temp Pulse Resp B/P B/P Pulse O2 O2 Flow FiO2 Mean Ox Delivery Rate 05/10 0801 64 160/76 05/10 0800 64 160/76 05/10 0800 64 160/76 05/10 0759 64 160/76 05/10 0648 98.6 63 20 160/76 95 Room Air 05/10 0000 Room Air 05/09 2212 98.2 62 18 98 05/09 2116 60 118/70 05/09 2116 60 118/70 05/09 2109 60 118/70 05/09 1623 59 148/70 05/09 1623 59 148/70 05/09 1623 59 148/70 05/09 1600 Room Air 05/09 1400 98.1 52 20 126/72 95 05/09 1103 60 160/60 05/09 1103 60 160/60 05/09 1103 60 160/60 Intake & Output 05/10 1600 05/10 0800 05/10 0000 Intake Total 480 540 Output Total 900 700 Balance -420 -160 Intake, Oral 480 540 Number 0 Bowel Movements Output, Urine 900 700 Patient 129.228 kg Weight Physical Exam General Appearance: Alert, Oriented X3, Cooperative, No Acute Distress Cardiovascular: Regular Rate Lungs: Clear to Auscultation, Normal Air Movement Abdomen: Soft, No Tenderness Neurological: Normal Speech Extremities: No Edema, Normal Pulses Current Medications: Current Medications Sig/Laure Start time Last Medication Dose Route Stop Time Status Admin Benzocaine/Menthol 1 JAMES Q2P PRN 05/10 0300 AC 05/10 PO 0254 Carvedilol 6.25 MG BID 05/08 2200 AC 05/10 PO 0800 Clonidine 0.2 MG DAILY 05/08 1702 AC 05/10 PO 0800 Escitalopram Oxalate 15 MG AT BEDTIME 05/08 2200 AC 05/09 PO 2117 Ferrous Sulfate 325 MG BID 05/08 2200 AC 05/10 PO 0800 Furosemide 20 MG DAILY 05/09 1000 AC 05/10 IV 0801 Gabapentin 300 MG TID 05/08 1703 AC 05/10 PO 0800 Hydralazine HCl 25 MG TID 05/08 2200 AC 05/10 PO 0759 Insulin Aspart 0 TIDAC 05/09 0800 AC 05/10 SC 0754 Lisinopril 20 MG DAILY 05/09 1323 AC PO Omeprazole 40 MG DAILY AC 05/10 0700 AC 05/10 PO 0533 Pantoprazole Sodium 40 MG DAILY 05/08 1929 DC 05/09 IV 1102 Last 24 Hrs of Lab/Martinez Results Last 24 Hrs of Labs/Mics: Laboratory Tests 05/10/17 0644: Sodium Pending, Potassium Pending, Chloride Pending, Carbon Dioxide Pending, Anion Gap Pending, BUN Pending, Creatinine Pending, BUN/Creatinine Ratio Pending Assessment/Plan Assessment: Ms. Mack is a 66-year-old female with PMH of hypertension, hyperlipidemia, diabetes, diabetic retinopathy, GERD, osteoarthritis, depression, anemia, status post appendectomy 2014, hernia repair with ventral hernia 2014, D/C recently, and recent Augmentin/Tylenol w/ Codeine treatment x 10 days for her chronic bronchitis, sent in by primary care physician for further evaluation with shortness of breath, cough and intermittent chest pain chest pain. According to the patient and objective physical examination, her chest pressure/ possible pain was nonreproducible, however only occurs when she walks for a while. It is unclear at this moment whether her chest pain was secondary to her anemia/CHF extubation pending further evaluation/bronchitis. Since patient did not endorse any excruciating headaches/vision change/muscle weakness, her hypertension would be classified as hypertensive urgency, and will be treated accordingly. Problem list #Hypertensive urgency #Chest discomfort secondary to anemia/Diastolic HFpEF/chronic bronchitis pending rule out #Type 2 diabetes #Angina/chest discomfort on exertion #PMH of hyperlipidemia, neuropathy, GERD, osteoarthritis, depression Plan -Continued telemetry monitoring Lasix. -TRC/nebulizer as needed - Will continue Lasix 20 mg IV, may switch to oral today. -Will continue Hydralazine 25mg TID PO to control BP, however, watch for tachycardia from synegistic use of Clonodine. currently showed some improvements. - Pending cardio input on switching to ARBs. Lexapro 50 mg daily, gabapentin 300 mg 3 times daily, DVT prophylaxis Heparin + ALPS Heart Healthy Diet Full Code Problem List: 1. Hypertensive urgency Pain Ratin Pain Location: NA Pain Goal: Remain pain free Pain Plan: see AP Tomorrow's Labs & Rationales: NA
[2017-05-10] MEDS ORDERED: LOSARTAN POTASS50 M1 PO (11:22)
--- NOTE | 2017-05-10 11:24 | Patient Discharge Instructions ---
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 - Please follow up with your primary care physician within 1-2 weeks of discharge. Inform your primary care physician of this admission to [facility]. - Continue your current medications per discharge instructions. - Please watch for these problems: Fever, Chills, Nausea, Vomiting, Shortness of Breath, Productive Cough, Chest Pain/Discomfort, Abdominal Pain, Active Bleeding or Bloody urine/stool. Diet Continue normal diet: Yes Recommended Diet: Diabetic, Heart Healthy Activity Full Activity/No Limits: Yes Acute Coronary Syndrome Inclusion Criteria At DC or during hospital stay patient has or had the following: ACS DIAGNOSIS No Discharge Core Measures Meds if any: Prescribed or Continued at Discharge Meds if any: NOT Prescribed or Continued at Discharge Congestive Heart Failure Inclusion Criteria At DC or during hospital stay patient has or had the following: CHF DIAGNOSIS No Discharge Core Measures Meds if any: Prescribed or Continued at Discharge Meds if any: NOT Prescribed or Continued at Discharge Cerebrovascular accident Inclusion Criteria At DC or during hospital stay patient has or had the following: CVA/TIA Diagnosis No Discharge Core Measures Meds if any: Prescribed or Continued at Discharge Meds if any: NOT Prescribed or Continued at Discharge Venous thromboembolism Inclusion Criteria VTE Diagnosis No VTE Type NONE VTE Confirmed by (Test) NONE Discharge Core Measures - Per Current guidelines, there needs to be overlap - treatment for the first 5 days of Warfarin therapy. - If discharged on Warfarin prior to 5 days of - overlap therapy, the patient will need to be - assessed for post discharge needs including - *Post discharge parental anticoagulation - *Warfarin and/or parental anticoagulation education - *Follow up date to check INR post discharge At least 5 days overlap therapy as Inpatient No Meds if any: Prescribed or Continued at Discharge Note: Overlap Therapy is Warfarin and Anticoagulant Meds if any: NOT Prescribed or Continued at Discharge
--- NOTE | 2017-05-10 11:36 | PN- Att Addend ---
Attending Addendum Attending Brief Note Patient seen and examined. Plan of care discussed with the medical team and the patient. Available lab work and radiology test reports were reviewed. Patient is awake alert and sitting at edge of her bed. She denies any headache or blurred vision or any neurological symptoms. Her difficulty breathing has resolved. She has been able to ambulate with a walker without any difficulty. She is expecting to go home today. Exam: General: Patient is obese, awake alert oriented without any distress CVS: S1 plus S2 without any murmur or gallops Chest: Few scattered crepitation without any wheeze. There is no respiratory distress. Abdomen: Soft non-tender, bowel sound present, no guarding or rebound SQL ANALYST: Awake alert oriented without any focal neuro deficit and follows commands appropriately Extremities: No edema; no clubbing or cyanosis noted Assessment #Hypertensive urgency- blood pressure is improved #Chest pain secondary to anemia/CHF/chronic bronchitis pending rule out #Type 2 diabetes #PMH of hyperlipidemia, neuropathy, GERD, osteoarthritis, depression # Angina on exertion- we'll need evaluation by cardiology although patient previously had cardiac workup done # Chronic renal failure Plan * Discontinue IV Lasix and change to oral Lasix * Await further cardiac input * Start losartan 50 mg daily; DuoNeb concern with coughing on lisinopril we will discontinue lisinopril * Monitor input output and daily weights * Plan for discharge home today Current Medications Sig/Laure Start time Last Medication Dose Route Stop Time Status Admin Acetaminophen 650 MG ONCE ONE 05/10 1000 DC 05/10 PO 05/10 1001 0950 Benzocaine/Menthol 1 JAMES Q2P PRN 05/10 0300 AC 05/10 PO 0254 Carvedilol 6.25 MG BID 05/08 2200 AC 05/10 PO 0800 Clonidine 0.2 MG DAILY 05/08 1702 AC 05/10 PO 0800 Escitalopram Oxalate 15 MG AT BEDTIME 05/08 2200 AC 05/09 PO 2117 Ferrous Sulfate 325 MG BID 05/08 220 AC 05/10 PO 0800 Furosemide 20 MG DAILY 05/09 1000 AC 05/10 IV 0801 Gabapentin 300 MG TID 05/08 1703 AC 05/10 PO 0800 Hydralazine HCl 25 MG TID 05/08 2200 AC 05/10 PO 0759 Insulin Aspart 0 TIDAC 05/09 0800 AC 05/10 SC 0754 Lisinopril 20 MG DAILY 05/09 1323 DC PO Omeprazole 40 MG DAILY AC 05/10 0700 AC 05/10 PO 0533 Pantoprazole Sodium 40 MG DAILY 05/08 1929 DC 05/09 IV 1102 Laboratory Tests 05/10/17 0644: Anion Gap 16, Estimated GFR 30 L, BUN/Creatinine Ratio 21.8 05/09/17 0752: Anion Gap 11, Estimated GFR 32 L, BUN/Creatinine Ratio 21.9, Troponin I < 0.01, CBC w Diff NO MAN DIFF REQ, RBC 2.96 L, MCV 86.6, MCH 27.8, MCHC 32.1 L, RDW 16.3 H, MPV 9.6, Gran % 66.7, Lymphocytes % 22.0, Monocytes % 8.6, Eosinophils % 2.3, Basophils % 0.4, Absolute Granulocytes 3.5, Absolute Lymphocytes 1.2, Absolute Monocytes 0.5, Absolute Eosinophils 0.1, Absolute Basophils 0 05/08/17 1540: Troponin I < 0.01 05/08/17 1213: Anion Gap 12, Estimated GFR 38 L, BUN/Creatinine Ratio 25.7 H, Glucose 194 H, Calcium 9.7, Total Bilirubin 0.4, AST 11 L, ALT 9, Alkaline Phosphatase 100, Troponin I < 0.01, Uwb-F-Nkcpnlmcuds Pept 3430 H, Total Protein 7.0, Albumin 3.5, Globulin 3.5, Albumin/Globulin Ratio 1.0 L, CBC w Diff NO MAN DIFF REQ, RBC 3.22 L, MCV 86.5, MCH 27.8, MCHC 32.1 L, RDW 16.5 H, MPV 9.1, Gran % 83.4 H, Lymphocytes % 12.8 L, Monocytes % 2.8, Eosinophils % 1.0, Basophils % 0, Absolute Granulocytes 5.3, Absolute Lymphocytes 0.8 L, Absolute Monocytes 0.2, Absolute Eosinophils 0.1, Absolute Basophils 0 Vital Signs Date Time Temp Pulse Resp B/P B/P Pulse O2 O2 Flow FiO2 Mean Ox Delivery Rate 05/10 0801 64 160/76 05/10 0800 64 160/76 05/10 0800 64 160/76 05/10 0759 64 160/76 05/10 0648 98.6 63 20 160/76 95 Room Air 05/10 0000 Room Air 05/09 2212 98.2 62 18 98 05/09 2116 60 118/70 05/09 2116 60 118/70 05/09 2109 60 118/70 05/09 1623 59 148/70 05/09 1623 59 148/70 05/09 1623 59 148/70 05/09 1600 Room Air 05/09 1400 98.1 52 20 126/72 95 Intake & Output 05/10 1600 05/10 0800 05/10 0000 Intake Total 480 540 Output Total 900 700 Balance -420 -160 Intake, Oral 480 540 Number 0 Bowel Movements Output, Urine 900 700 Patient 285 lb Weight Total time spent in preparation for discharge plan, patient education, and CMR preparation was 35 minutes.
--- NOTE | 2017-05-10 13:03 | PN- Cardiology ---
Subjective Subjective: Stable and slightly better. Improved blood pressure control Objective Vital Signs and I&Os Vital Signs Date Time Temp Pulse Resp B/P B/P Pulse O2 O2 Flow FiO2 Mean Ox Delivery Rate 05/10 0801 64 160/76 05/10 0800 64 160/76 05/10 0800 64 160/76 05/10 0759 64 160/76 05/10 0648 98.6 63 20 160/76 95 Room Air 05/10 0000 Room Air 05/09 2212 98.2 62 18 98 05/09 2116 60 118/70 05/09 2116 60 118/70 05/09 2109 60 118/70 05/09 1623 59 148/70 05/09 1623 59 148/70 05/09 1623 59 148/70 05/09 1600 Room Air 05/09 1400 98.1 52 20 126/72 95 Intake & Output 05/10 1600 05/10 0800 05/10 0000 05/09 1600 05/09 0800 05/09 0000 Intake Total 480 540 600 480 240 Output Total 900 700 200 800 Balance -420 -160 400 480 -560 Intake, Oral 480 540 600 480 240 Number 0 Bowel Movements Output, Urine 900 700 200 800 Patient 285 lb 304 lb Weight Weight Bed scale Measurement Method Physical Exam: General Appearance Alert, Oriented X3, Cooperative, No Acute Distress Skin No Breakdown, No Significant Lesion HEENT Atraumatic, PERRLA, EOMI Neck Supple, No JVD Cardiovascular Regular Rate Lungs Clear to Auscultation, Normal Air Movement Abdomen Normal Bowel Sounds, Soft, No Tenderness Neurological Normal Speech, Strength at 5/5 X4 Ext Extremities No Edema, Normal Pulses Current Medications: Current Medications Sig/Laure Start time Last Medication Dose Route Stop Time Status Admin Acetaminophen 650 MG ONCE ONE 05/10 1000 DC 05/10 PO 05/10 1001 0950 Benzocaine/Menthol 1 JAMES Q2P PRN 05/10 0300 AC 05/10 PO 0254 Carvedilol 6.25 MG BID 05/08 2199 AC 05/10 PO 0800 Clonidine 0.2 MG DAILY 05/08 1702 AC 05/10 PO 0800 Escitalopram Oxalate 15 MG AT BEDTIME 05/08 2199 AC 05/09 PO 2117 Ferrous Sulfate 325 MG BID 05/08 2199 AC 05/10 PO 0800 Furosemide 20 MG DAILY 05/09 1000 AC 05/10 IV 0801 Gabapentin 300 MG TID 05/08 1703 AC 05/10 PO 0800 Hydralazine HCl 25 MG TID 05/08 2200 AC 05/10 PO 0759 Insulin Aspart 0 TIDAC 05/09 0800 AC 05/10 SC 1225 Lisinopril 20 MG DAILY 05/09 1323 DC PO Losartan Potassium 50 MG DAILY 05/10 1200 AC PO Omeprazole 40 MG DAILY AC 05/10 0700 AC 05/10 PO 0533 Pantoprazole Sodium 40 MG DAILY 05/08 1929 DC 05/09 IV 1102 Results Last 48 Hrs of Labs/Mics: Laboratory Tests 05/10/17 0644: Anion Gap 16, Estimated GFR 30 L, BUN/Creatinine Ratio 21.8 05/09/17 0752: Anion Gap 11, Estimated GFR 32 L, BUN/Creatinine Ratio 21.9, Troponin I < 0.01, CBC w Diff NO MAN DIFF REQ, RBC 2.96 L, MCV 86.6, MCH 27.8, MCHC 32.1 L, RDW 16.3 H, MPV 9.6, Gran % 66.7, Lymphocytes % 22.0, Monocytes % 8.6, Eosinophils % 2.3, Basophils % 0.4, Absolute Granulocytes 3.5, Absolute Lymphocytes 1.2, Absolute Monocytes 0.5, Absolute Eosinophils 0.1, Absolute Basophils 0 05/08/17 1540: Troponin I < 0.01 Assessment/Plan Assessment/Plan Assessment: 1. Hypertensive urgency 2. Chest discomfort 3. Heart murmur 4. Possible acute on chronic HFpEF 5. Worsening anemia 6. Diabetes 7. History of GERD Recommendations: -Monitor on telemetry -Serial troponins have been negative, ECG unchanged -Consider follow-up echocardiogram to 2 increased heart murmur -Further workup for cause of underlying anemia -Lisinopril held due to persistent cough -Continue current blood pressure medications for now -Ultimately, consider further blood pressure medication changes such as increasing carvedilol dose and avoiding 3 times a day medications due to patient compliance issues; these changes can be performed as an outpatient. Continue telemetry? No
--- NOTE | 2017-05-10 13:25 | Discharge Summary ---
Visit Information Visit Dates Admission Date: 05/08/17 Discharge Date: 05/10/2017 Hospital Course Course Attending Physician: Cleo BOWMAN,Emanuel Primary Care Physician: Edis Barone APRN Hospital Course: Ms. Mack is a 66-year-old female with PMH of hypertension, hyperlipidemia, diabetes, diabetic retinopathy, GERD, osteoarthritis, depression, anemia, status post appendectomy 2014, hernia repair with ventral hernia 2014, D/C recently, and recent Augmentin/Tylenol w/ Codeine treatment x 10 days for her chronic bronchitis, sent in by primary care physician for further evaluation with shortness of breath, cough and intermittent chest pain chest pain. According to the patient and objective physical examination, her chest pressure/ possible pain was nonreproducible, however only occurs when she walks for a while. It is unclear at this moment whether her chest pain was secondary to her anemia/CHF extubation pending further evaluation/bronchitis. Since patient did not endorse any excruciating headaches/vision change/muscle weakness, her hypertension would be classified as hypertensive urgency, and will be treated accordingly. Problem list #Hypertensive urgency #Chest discomfort secondary to anemia/Diastolic HFpEF/chronic bronchitis pending rule out #Type 2 diabetes #Angina/chest discomfort on exertion #PMH of hyperlipidemia, neuropathy, GERD, osteoarthritis, depression Hospital course: Upon admission, patient was continuous monitored under telemetry, given TRC/ nebulizer as needed for her chronic bronchitis, monitor weights/input/output, and was kept on negative fluid balance with the use of Lasix. Patient was kept with her head elevated, because that home patient was at baseline sleeping on 3 pillows. Patient was given IV hydralazine to control blood pressure, and her blood pressure decreased to 140s/60s. Lisinopril was held with consideration of patient's chronic cough could be induced by lisinopril, however her chronic bronchitis may have contributed as well. Upon stabilization of blood pressure, patient's IV hydralazine was switched to oral hydralazine 25 mg 3 times daily p.o., along with continuation of all abdominal medications including clonidine 0.2 mg daily, and Coreg 625 twice daily. Prior to discharge, patient was started on losartan 50 mg daily in replacement of lisinopril for blood pressure control, and no hydralazine was given after discharge. Patient was advised to follow-up with Dr. Nur for further adjustment of blood pressure medications, and continue blood pressure checks at home. She was started on NovoLog sliding scale/Accu-Chek, and hold home medications of oral hypoglycemics for her diabetes. Patient was continue all home meds including Lexapro 50 mg daily, gabapentin 300 mg 3 times daily. DVT prophylaxis Heparin + ALPS Heart Healthy Diet Full Code Allergies: Coded Allergies: NO KNOWN ALLERGIES (10/06/14) Pertinent Lab Results: SERVICE DATE: 05/08/17 EXAM TYPE: RAD - XRY-CHEST XRAY, TWO VIEWS IMPRESSION: Mild cardiomegaly and pulmonary venous congestion without overt pulmonary edema. Laboratory Tests 05/10 0644 Chemistry Sodium (137 - 145 mmol/L) 140 Potassium (3.5 - 5.1 mmol/L) 5.1 Chloride (98 - 107 mmol/L) 101 Carbon Dioxide (22 - 30 mmol/L) 24 Anion Gap (5 - 16) 16 BUN (7 - 17 mg/dL) 37 H Creatinine (0.5 - 1.0 mg/dL) 1.7 H Estimated GFR (>60 ml/min) 30 L BUN/Creatinine Ratio (7 - 25 %) 21.8 Disposition Summary Disposition Principal Diagnosis: #Hypertensive urgency #Chest discomfort secondary to anemia/Diastolic HFpEF/chronic bronchitis #Type 2 diabetes #Angina/chest discomfort on exertion #PMH of hyperlipidemia, neuropathy, GERD, osteoarthritis, depression Additional Diagnosis: above Discharge Disposition: home health services Discharge Instructions General Discharge Information Code Status: Full Code Patient's Diet: Heart Healthy DIet Patient's Activity: As Tolerated Follow-Up Instructions/Appts: - Please follow up with your assistant professor of spanish Dr. 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 - Please follow up with your primary care physician within 1-2 weeks of discharge. Inform your primary care physician of this admission to [facility]. - Continue your current medications per discharge instructions. - Please watch for these problems: Fever, Chills, Nausea, Vomiting, Shortness of Breath, Productive Cough, Chest Pain/Discomfort, Abdominal Pain, Active Bleeding or Bloody urine/stool. Medications at Discharge Discharge Medications: Stop taking the following medications: Lisinopril (Lisinopril) 20 MG TABLET ORAL DAILY Qty = 30 Continue taking these medications: Gabapentin (Neurontin) 300 MG CAPSULE 1 Capsule ORAL THREE TIMES DAILY Comments: Last Taken:05/10/17 Time:3;54pm Furosemide (Furosemide) 20 MG TABLET 1 Tablet ORAL DAILY Comments: Not given at the hospital Pantoprazole Sodium (Protonix) 40 MG TABLET.DR 1 Tablet ORAL DAILY Comments: Not taken at the hospital Clonidine (Catapres) 0.2 MG TABLET Tablet ORAL DAILY Comments: Last Taken:05/10/17 Time:0800 Carvedilol (Coreg) 6.25 MG TABLET 1 Tablet ORAL TWICE DAILY Comments: Last Taken:05/10/17 Time:0800 Loratadine (Claritin) 10 MG TABLET 1 Tablet ORAL DAILY Comments: Not taken at the hospital Montelukast Sodium (Singulair) 10 MG TABLET 1 Tablet ORAL DAILY Comments: Not taken at the hospital Glimepiride (Amaryl) 4 MG TABLET 1 Tablet ORAL DAILY Comments: Last Taken:NOT GIVEN THIS ADMISSION Time: Escitalopram Oxalate (Lexapro) 10 MG TABLET 1.5 Tablet ORAL AT BEDTIME Comments: Last Taken;05/09/17 Time:9pm Acetaminophen (Tylenol Extra Strength) 500 MG TABLET 1-2 Tablet ORAL 4 TIMES A DAY as needed for Leg Pain Qty = 30 Comments: NOT GIVEN THIS ADMISSION Diclofenac Sodium (Voltaren) 1 % GEL..GRAM. 1 Gram On the skin 4 TIMES A DAY Qty = 1 Instructions: apply to your knees Comments: NOT GIVEN THIS ADMISSION Sitagliptin Phos/Metformin HCl (Janumet 50-1,000 MG Tablet) 50 MG-1,000 MG TABLET 1 Tablet ORAL TWICE DAILY Qty = 60 Comments: Not tAKEN AT THE HOSPITAL Start taking the following new medications: Losartan Potassium (Losartan Potassium) 50 MG TABLET 1 Tablet ORAL DAILY Qty = 30 No Refills Comments: Last Taken:05/10/17 Time:1;21PM Copies To: Edis Barone APRN
[2017-05-10 15:54] VITALS: BP 140/70
--- NOTE | 2017-05-10 17:51 | ECHOCARDIOGRAM REPORT ---
DWAYNE COX Age: 66 : 1950 Gender: F Exam Date: 05/09/2017 19:50 Exam Location: 1 [address] Ht (in): 69 Wt (lb): 304 BSA: 2.66 BP: 148 / 70 Ordering Physician: Pooja Gonzalez MD Referring Physician: Figueroa Nur MD Technologist: Beata Drummond [facility] Room Number: 176 Indications: MURMUR/CLICK Rhythm: Sinus Technical Quality: Fair FINDINGS Left Ventricle Normal size left ventricle. Left ventricular wall thickness moderately increased. Normal left ventricular ejection fraction estimated at 55-60%. Right Ventricle Right ventricle not well visualized, grossly normal. Right Atrium Normal right atrial size. Left Atrium Mild left atrial dilatation. Mitral Valve Mitral valve thickened. Moderate mitral annular calcification. Trace mitral regurgitation. Aortic Valve Trileaflet aortic valve. Focal thickening of the aortic valve cusps. No aortic stenosis. No aortic regurgitation. Tricuspid Valve Tricuspid valve not well visualized, grossly normal. Trace tricuspid regurgitation. Pulmonic Valve Structurally normal pulmonic valve. Trace pulmonic regurgitation. Pericardium No pleural effusion. Small pericardial effusion. Great Vessels Normal size aortic root and proximal ascending aorta. CONCLUSIONS 1. The aortic valve is trileaflet and normal. 2. MItral leaflet thickening is present with moderate anular calcification and minimal mitral insufficiency with mild left atrial enlargement. 3. A very small pericardial effusion is present. 4. The left ventricular chamber size is normal with moderate concentric hypertrophy and a normal ejection fraction with no resting wall motion abnormalities. 5. Minimal tricuspid and pulmonic insufficiency are present with no evidence of pulmonary hypertension. Figueroa Nur M.D. (Electronically Signed) Final Date: 10 May 2017 17:51 MEASUREMENTS (Male / Female) Normal Values 2D ECHO LV Diastolic Diameter PLAX 4.8 cm 4.2 - 5.9 / 3.9 - 5.3 cm LV Systolic Diameter PLAX 2.4 cm 2.1 - 4.0 cm LV Fractional Shortening PLAX 50.0 % 25 - 46 % LV Ejection Fraction 2D Teich 81.3 % IVS Diastolic Thickness 1.7 cm LVPW Diastolic Thickness 1.7 cm LV Relative Wall Thickness 0.7 RV Internal Dim ED PLAX 2.8 cm 1.9 - 3.8 cm LVOT Diameter 2.4 cm Aortic Root Diameter 3.1 cm LA Systolic Diameter LX 4.7 cm 3.0 - 4.0 / 2.7 - 3.8 cm LA Volume 51.0 cm 18 - 58 / 22 - 52 cm Ascending Aorta Diameter 3.1 cm DOPPLER AV Peak Velocity 163.0 cm/s AV Peak Gradient 10.6 mmHg AV Mean Velocity 107.0 cm/s AV Mean Gradient 5.0 mmHg AV Velocity Time Integral 39.6 cm LVOT Peak Velocity 112.0 cm/s LVOT Peak Gradient 5.0 mmHg LVOT Mean Velocity 75.5 cm/s LVOT Mean Gradient 3.0 mmHg LVOT Velocity Time Integral 31.1 cm LVOT Stroke Volume 140.7 cm AV Area Cont Eq vti 3.6 cm AV Area Cont Eq pk 3.1 cm MV Peak Velocity 150.0 cm/s MV Peak Gradient 9.0 mmHg MV Mean Velocity 78.3 cm/s MV Mean Gradient 3.0 mmHg Mitral E Point Velocity 110.0 cm/s Mitral A Point Velocity 133.0 cm/s Mitral E to A Ratio 0.8 MV PHT Velocity 122.0 cm/s MV Deceleration [place] 292.0 cm/s MV Pressure Half Time 125.3 ms MV Area PHT 1.8 cm MV Deceleration Time 277.0 ms TR Peak Velocity 133.0 cm/s TR Peak Gradient 7.1 mmHg Right Atrial Pressure 5.0 mmHg Pulmonary Artery Systolic Pressu 12.1 mmHg Right Ventricular Systolic Press 12.1 mmHg PV Peak Velocity 121.0 cm/s PV Peak Gradient 5.9 mmHg PV Mean Velocity 78.9 cm/s PV Mean Gradient 3.0 mmHg PV Velocity Time Integral 27.7 cm LV E' Lateral Velocity 7.3 cm/s Mitral E to LV E' Lateral Ratio 15.0 LV E' Septal Velocity 6.1 cm/s Mitral E to LV E' Septal Ratio 17.9
== END 2017-05-10 17:11 | disposition home health service (06) | DRG 199 ==
LOC: ERH 09:47 → ERHI 16:36 → 1NO 16:36 → ENRESERV 19:00 → ENTRNSPT 20:04 → EDTRNSPTSTS 20:16 → EDTRNSPT 20:16 → CMPTRNSPT 20:32 → 1NO 20:37 → ENPENDDIS 05-10 15:28 → 1NO 05-10 17:11
PROVIDERS: Physician Assistant Medical
DX: I16.0 Hypertensive urgency (principal); I50.33 Acute on chronic diastolic (congestive) heart failure; E11.42 Type 2 diabetes mellitus with diabetic polyneuropathy; E11.319 Type 2 diabetes mellitus with unspecified diabetic retinopathy without macular edema; Z79.84 Long term (current) use of oral hypoglycemic drugs; I11.0 Hypertensive heart disease with heart failure; J42 Unspecified chronic bronchitis; D64.9 Anemia, unspecified; R07.89 Other chest pain; E66.01 Morbid (severe) obesity due to excess calories; Z68.41 Body mass index [BMI] 40.0-44.9, adult; E78.5 Hyperlipidemia, unspecified; K21.9 Gastro-esophageal reflux disease without esophagitis; M19.90 Unspecified osteoarthritis, unspecified site; F32.9 Major depressive disorder, single episode, unspecified; M54.30 Sciatica, unspecified side; Z87.891 Personal history of nicotine dependence; R01.1 Cardiac murmur, unspecified; I13.0 Hypertensive heart and chronic kidney disease with heart failure and stage 1 through stage 4 chronic kidney disease, or unspecified chronic kidney disease; E11.22 Type 2 diabetes mellitus with diabetic chronic kidney disease; N18.9 Chronic kidney disease, unspecified; I20.8 Other forms of angina pectoris
CPT/HCPCS: 1NP; 36592; 71046; 82436; 93005; 93010; 93306; 96374; 96375; 97116-GO; 97161-GP; 97530-GO; 99291; J0360; J1940

== ENCOUNTER 2017-09-06 10:18 | Inpatient (IN) | payer OTHER, MEDICARE ==
[~2017-09-06] VITALS: Ht 172.7 cm; Wt 140.3 kg
[~2017-09-06 10:18] MED LIST changes: -FUROSEMIDE20 M1 PO; +FUROSEMIDE40 M1 PO; +JANUMET 50-1,01 EACH PO; +LOSARTAN POTASS50 M1 PO
--- NOTE | 2017-09-06 12:01 | ED GENERAL ADULT ---
History of Present Illness General Chief Complaint: Dyspnea (COPD, CHF, Other) Stated Complaint: SOB, CHEST PRESSURE Source: patient Exam Limitations: no limitations Vital Signs & Intake/Output Vital Signs & Intake/Output Vital Signs Date Time Temp Pulse Resp B/P B/P Pulse O2 O2 Flow FiO2 Mean Ox Delivery Rate 09/06 1356 98.1 58 22 190/80 100 Nasal 3.0L Cannula 09/06 1056 93 Nasal 3.0L Cannula 09/06 1045 61 190/79 93 Nasal 3.0L Cannula 09/06 1032 97.9 79 26 193/77 91 Nasal 3.0L Cannula 09/06 1030 85 Room Air Allergies Coded Allergies: NO KNOWN ALLERGIES (10/06/14) Reconcile Medications Acetaminophen (Tylenol Extra Strength) 500 MG TABLET 1-2 TAB PO 4 TIMES/DAY PRN Leg Pain Carvedilol (Coreg) 6.25 MG TABLET 1 TAB PO BID HTN (Reported) Clonidine (Catapres) 0.2 MG TABLET 1 TAB PO DAILY HTN (Reported) Diclofenac Sodium (Voltaren) 1 % GEL..GRAM. 1 GM TOP 4 TIMES/DAY JOINT PAIN apply to your knees Escitalopram Oxalate (Lexapro) 10 MG TABLET 1.5 TAB PO AT BEDTIME depression (Reported) Ferrous Sulfate 325 MG (65 MG IRON) TABLET 1 TAB PO BID IRON, VITAMIN ( Reported) Furosemide 20 MG TABLET 1 TAB PO Q48 WATER RETENTION (Reported) Gabapentin (Neurontin) 300 MG CAPSULE 1 CAP PO TID NEUROPATHY (Reported) Glimepiride (Amaryl) 4 MG TABLET 1 TAB PO DAILY DIABETES (Reported) Loratadine (Claritin) 10 MG TABLET 1 TAB PO DAILY ALLERGIES (Reported) Losartan Potassium 50 MG TABLET 1 TAB PO DAILY HTN Montelukast Sodium (Singulair) 10 MG TABLET 1 TAB PO DAILY SOB (Reported) Pantoprazole Sodium (Protonix) 40 MG TABLET.DR 1 TAB PO DAILY GI (Reported) Sitagliptin Phos/Metformin HCl (Janumet 50-1,000 MG Tablet) 50 MG-1,000 MG TABLET 1 TAB PO BID DIABETES (Reported) Spironolactone (Aldactone) 25 MG TABLET 2 TAB PO DAILY WATER RETENTION ( Reported) Tramadol HCl 50 MG TABLET 1-2 TAB PO QPMP PRN PAIN (Reported) Triage Note: PT TO ED C/O FEELING SOB. H/O CHF. STATES WORSENING B/L LE EDEMA. PT NOTED SOB WITH SPEECH. TAKEN TO ROOM 12, PT NEEDED MULTIPLE STAFF MEMBERS TO ASSIST HER TO BED. SOB WORSE WITH EXERTION. PT AUDIBLY WHEEZING. PT DENIES ANY PAIN, CHEST PAIN. RA SATS LOW 80'S, PLACED ON 3L, SATS UP TO LOW 90'S. Triage Nurses Notes Reviewed? yes HPI: Mrs Mack is a 67-year-old female with past medical history of congestive heart failure on furosemide 20 mg every other day followed by Dr. Nur, who presents today with dyspnea. She does not wear supplemental oxygenation at home , and awoke today with dyspnea which progressed in severity. She called 911, and at EMS arrival crocs and saturation was in the 80s. Improved with supplemental oxygenation. Upon my initial encounter the patient is feeling much improved on the oxygen. She reports mild to moderate central chest pressure, without radiation, diaphoresis, or nausea. Past History Travel History Traveled to [place] past 21 day No Medical History Any Pertinent Medical History? 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 FH: CHF (congestive heart failure) FH: diabetes mellitus, Onset: 60+. FH: myocardial infarction BROTHER FH: diabetes mellitus GRANDFATHER FH: diabetes mellitus Hx Contributory? No Review of Systems Review of Systems Constitutional: Reports: see HPI. EENTM: Reports: no symptoms. Respiratory: Reports: see HPI, cough, orthopnea, short of breath. Cardiovascular: Reports: chest pain, orthopena. GI: Reports: no symptoms. Genitourinary: Reports: no symptoms. Musculoskeletal: Reports: no symptoms. Skin: Reports: no symptoms. Neurological/Psychological: Reports: no symptoms. Hematologic/Endocrine: Reports: no symptoms. All Other Systems: Reviewed and Negative Physical Exam Physical Exam General Appearance: well developed/nourished, no apparent distress, alert, comfortable Comments: HEENT: Inspection of the head reveals a normocephalic cranium with no signs of trauma. Ophtho: Extraocular muscles are intact and pupils are equal and reactive to light bilaterally with no afferent pupillary defect. The sclera are noninjected , and there is no obvious discharge. Neck: The trachea is midline, there is no obvious asymmetry or mass over the thyroid, and there is no midline cervical spine tenderness Respiratory: Bibasilar crackles on auscultation with hypoxia on room air that improves rapidly to the 90s on 2-3 L supplemental oxygenation by nasal cannula. Increased work of breathing on room air. Cardiac: Regular rhythm and non-tachycardic without appreciable murmurs on auscultation. No obvious JVD. GI: Examination of the abdomen obese reveals no significant focal tenderness in any of the four quadrants. There is negative Sullivan's sign, negative McBurney's point tenderness, negative [place] sign, negative Zheng-Peter sign, and no signs of peritonitis whatsoever on percussion or deep palpation. The skin is intact with no sign of trauma or infection. : Deferred Extremities: Bilaterally obese extremities make detailed evaluation possible, but subjectively the patient has worsening edema in the right side greater than left side, most focally around the popliteal region. She states that she has had a prior deep space tissue infection in location. There is no overlying erythema. Neuro: The patient is oriented to person, place, time, and situation, with no obvious focal motor deficits. There were no sensory deficits, and the patient exhibit purposeful movement of all 4 extremities. Cranial nerves II through XII are intact, and gait is normal. Behavioral: Calm and cooperative Dermatologic: Dermatologic examination reveals no diffuse rashes or exanthems, no petechiae, no ecchymoses, and no other signs of erythema or infection. Core Measures ACS in differential dx? Yes CVA/TIA Diagnosis: No Sepsis Present: No Sepsis Focused Exam Completed? No Progress Differential Diagnoses I considered the following diagnoses in my evaluation of the patient: CHF, ACS, NC Plan of Care: Orders Procedure Date/time Status Heart Healthy Diet 09/06 D Active ED Holding Orders 09/06 1428 Active Admit to inpatient 09/06 1428 Active Code Status 09/06 1428 Active TROPONIN LEVEL 09/06 1143 Complete COMPREHENSIVE METABOLIC PANEL 09/06 1143 Complete CBC WITHOUT DIFFERENTIAL 09/06 1143 Complete B-TYPE NATRIURETIC PEP (BNP) 09/06 1143 Complete EKG 09/06 1020 Active Laboratory Tests 09/06/ 1205: Anion Gap 11, Estimated GFR 35 L, BUN/Creatinine Ratio 25.3 H, Glucose 171 H, Calcium 9.5, Total Bilirubin 0.4, AST 14, ALT 16, Alkaline Phosphatase 107, Troponin I 0.02, Dmq-I-Ghcmesbixcc Pept 4300 H, Total Protein 7.0, Albumin 3.6, Globulin 3.4, Albumin/Globulin Ratio 1.1, CBC w Diff NO MAN DIFF REQ, RBC 3.47 L, MCV 87.6, MCH 28.3, MCHC 32.3 L, RDW 16.9 H, MPV 9.6, Gran % 82.1 H, Lymphocytes % 12.2 L, Monocytes % 4.3, Eosinophils % 1.0, Basophils % 0.4, Absolute Granulocytes 6.1, Absolute Lymphocytes 0.9 L, Absolute Monocytes 0.3, Absolute Eosinophils 0.1, Absolute Basophils 0 Radiology Impression: no acute abnormality (RLE duplex u/s neg for DVT) CXR Impression: CHF Initial ED EKG: normal axis, normal intervals, normal p-waves, no ST T wave changes Comments: Patient presents in CHF with crackles to the bilateral lower lung fuentes and hypoxia to the low 80s. Improved with supplemental oxygenation, responded to IV diuresis, but at reassessment still was hypoxic to 89% on room air even without exertion. Admitted for further workup and monitoring of her chest pressure. Departure Departure Time of Disposition: 1431 Disposition: STILL A PATIENT Condition: Stable Clinical Impression Primary Impression: CHF (congestive heart failure) Qualifiers: Heart failure type: unspecified Heart failure chronicity: acute on chronic Qualified Code: I50.9 - Heart failure, unspecified Referrals: Edis Barone APRN (PCP/Family) Departure Forms: Customer Survey General Discharge Information Admission Note Spoke With: Demetris Naylor MD Documentation of Exam: Documentation of any treatments & extenuating circumstances including Concerns Regarding Discharge (functional status, medication knowledge or non-compliance, living conditions, etc.) that warrant an admission rather than observation: Patient presented today with hypoxia secondary to congestive heart failure. Despite IV diuresis in the emergency department she was still hypoxic at reassessment, and still with chest pressure. I feel that she will require further IV diuresis and I'm concerned for acute coronary syndrome, and therefore she requires troponin trending as well. Discharge home would not be safe at this time. Critical Care Note Critical Care Note Critical Care Time: non-applicable
[2017-09-06 12:31] LABS: ABSOLUTE BASOPHIL COUNT 0 /CUMM (0.0-0.2); ABSOLUTE EOSINOPHIL COUNT 0.1 /CUMM (0.0-0.7); ABSOLUTE GRANULOCYTE CT 6.1 /CUMM (1.4-6.5); ABSOLUTE LYMPH COUNT 0.9 /CUMM (1.2-3.4); ABSOLUTE MONOCYTE COUNT 0.3 /CUMM (0.10-0.60); BASOPHIL % 0.4 % (0.0-2.0); GRANULOCYTE % 82.1 % (42.2-75.2); HEMATOCRIT 30.4 % (37-47); MEAN CORPUSCULAR HGB 28.3 PG (27.0-31.0); MEAN CORPUSCULAR HGB CONC 32.3 G/DL (33.0-37.0); MEAN CORPUSCULAR VOLUME 87.6 FL (81.0-99.0); MEAN PLATELET VOLUME 9.6 FL (7.4-10.4); PLATELET COUNT 289 /CUMM (130-400); RBC DISTRIBUTION WIDTH 16.9 % (11.5-14.5); RED BLOOD CELL CT 3.47 /CUMM (4.20-5.40); WHITE BLOOD CELL COUNT 7.4 /CUMM (4.8-10.8)
--- NOTE | 2017-09-06 12:37 | RADIOLOGY REPORT ---
EXAMINATION: XR CHEST CLINICAL INFORMATION: Dyspnea COMPARISON: Chest x-ray 05/08/2017 TECHNIQUE: 2 views of the chest were obtained. FINDINGS: Cardiomegaly. Atherosclerotic disease of the aortic arch. Pulmonary venous congestion with diffusely prominent interstitial markings most consistent with CHF. No gross lobar consolidation identified. No large pleural effusion appreciated. Degenerative changes of the spine. IMPRESSION: Radiographic findings most consistent with CHF. Follow-up examination recommended status post treatment to ensure resolution.
[2017-09-06] MEDS ORDERED: TRAMADOL HCL50 M1 PO (12:59)
[2017-09-06] MEDS ORDERED: ALDACTONE50 M1 PO (12:59)
[2017-09-06] MEDS ORDERED: FERROUS SULFAT325 M3 PO (13:00)
--- NOTE | 2017-09-06 13:20 | ULTRASOUND REPORT ---
EXAMINATION: US TRIPLEX LOWER EXTREMITY, RIGHT CLINICAL INFORMATION: Right lower extremity swelling COMPARISON: None TECHNIQUE: Color-flow triplex imaging with spectral analysis and compression Doppler were performed on the lower extremity. FINDINGS: Respiratory variation, normal compression and augmented flow are noted throughout the lower extremity. The visualized common femoral vein, superficial femoral vein, profunda femoral vein, popliteal vein and midcalf peroneal and posterior tibial venous segments show no evidence of deep venous thrombosis. There is no Bravo's cyst. IMPRESSION: No evidence of deep venous thrombosis involving the lower extremity.
--- NOTE | 2017-09-06 14:52 | History & Physical ---
Janine Dee 09/06/17 1451: General Information and HPI MD Statement: I have seen and personally examined DWAYNE COX and documented this H&P. The patient is a 67 year old F who presented with a patient stated chief complaint of [unable to catch breath]. Source of Information: patient, old records Exam Limitations: no limitations History of Present Illness: Patient is a pleasant 67-year-old female with past medical history of heart failure with preserved ejection fraction, diabetes, hypertension, hyperlipidemia , CKD stage IIIB, came to ER with chief complaint of difficulty breathing. Patient states that she was in her usual state of health last night and when she woke up this morning, she noticed that she was increasingly getting short of breath. She stated that she was out of her breath on walking, she sat down and felt that she was too exhausted to eat anything. This was accompanied by wheezing, she states that she has been wheezing since past couple of days and also has productive cough with yellowish sputum. Denies any fever or chills, no sick contacts at home, no history of lung or leg clots. She states that she sleeps on her chair, and for bed she uses a big pillow on the back to help her breathe at night. 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 Her last follow-up was 3 months ago when she was told that she was doing well. Patient states that for her COPD she follows up with Dr. Maharaj at [place]. Patient lives alone, and is independent in her daily activities, is compliant with her medication and takes them by herself. Patient uses walker to move around, no recent falls. Allergies/Medications Allergies: Coded Allergies: NO KNOWN ALLERGIES (10/06/14) Home Med list Acetaminophen (Tylenol Extra Strength) 500 MG TABLET 1-2 TAB PO 4 TIMES/DAY PRN Leg Pain Carvedilol (Coreg) 6.25 MG TABLET 1 TAB PO BID HTN (Reported) Clonidine (Catapres) 0.2 MG TABLET 1 TAB PO DAILY HTN (Reported) Diclofenac Sodium (Voltaren) 1 % GEL..GRAM. 1 GM TOP 4 TIMES/DAY JOINT PAIN apply to your knees Escitalopram Oxalate (Lexapro) 10 MG TABLET 1.5 TAB PO AT BEDTIME depression (Reported) Ferrous Sulfate 325 MG (65 MG IRON) TABLET 1 TAB PO BID IRON, VITAMIN ( Reported) Furosemide 20 MG TABLET 1 TAB PO Q48 WATER RETENTION (Reported) Gabapentin (Neurontin) 300 MG CAPSULE 1 CAP PO TID NEUROPATHY (Reported) Glimepiride (Amaryl) 4 MG TABLET 1 TAB PO DAILY DIABETES (Reported) Loratadine (Claritin) 10 MG TABLET 1 TAB PO DAILY ALLERGIES (Reported) Losartan Potassium 50 MG TABLET 1 TAB PO DAILY HTN Montelukast Sodium (Singulair) 10 MG TABLET 1 TAB PO DAILY SOB (Reported) Pantoprazole Sodium (Protonix) 40 MG TABLET.DR 1 TAB PO DAILY GI (Reported) Spironolactone (Aldactone) 25 MG TABLET 2 TAB PO DAILY WATER RETENTION ( Reported) Tramadol HCl 50 MG TABLET 1-2 TAB PO QPMP PRN PAIN (Reported) Past History Travel History Traveled to [place] past 21 day No Medical History Neurological: peripheral neuropathy EENT: allergies, diabetic retinopathy Cardiovascular: CHF, hypertension, hyperlipidemia Respiratory: bronchitis Gastrointestinal: GERD, appendicitis ventral hernia Hepatic: NONE Renal: abnormal kidney function Musculoskeletal: sciatica, arthritis Psychiatric: depression Endocrine: diabetes Blood Disorders: anemia Cancer(s): NONE 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 FH: CHF (congestive heart failure) FH: diabetes mellitus, Onset: 60+. FH: myocardial infarction BROTHER FH: diabetes mellitus GRANDFATHER FH: diabetes mellitus Psychosocial History Who Do You Live With? self Services at Home: Home Health Aide Primary Language: Upper Sorbian ETOH Use: denies use Illicit Drug Use: denies illicit drug use Functional Ability ADLs Independent: dressing, eating, toileting, bathing. Ambulation: cane, walker, 2/2 neuropathy IADLs Independent: finances, food prep, telephone, transportation, medication admin. Needs Assist: shopping, housework. Review of Systems Review of Systems Constitutional: Reports: see HPI. Exam & Diagnostic Data Last 24 Hrs of Vital Signs/I&O Vital Signs Date Time Temp Pulse Resp B/P B/P Pulse O2 O2 Flow FiO2 Mean Ox Delivery Rate 09/06 1356 98.1 58 22 190/80 100 Nasal 3.0L Cannula 09/06 1056 93 Nasal 3.0L Cannula 09/06 1045 61 190/79 93 Nasal 3.0L Cannula 09/06 1032 97.9 79 26 193/77 91 Nasal 3.0L Cannula 09/06 1030 85 Room Air Intake & Output 09/06 1600 09/06 0800 09/06 0000 Intake Total Output Total 1400 Balance -1400 Output, Urine 1400 Patient 144.242 kg Weight Weight Reported by Patient Measurement Method Physical Exam General Appearance Alert, Oriented X3, Cooperative Skin No Rashes, No Breakdown Skin Temp/Moisture Exam: Warm/Dry Sepsis Skin Exam (color): Normal for Ethnicity HEENT Atraumatic, PERRLA Neck Supple Cardiovascular Regular Rate, Normal S1, Normal S2 Lungs Clear to Auscultation, Normal Air Movement Abdomen Normal Bowel Sounds, Soft, No Tenderness Neurological Normal Speech, Normal Tone Extremities b/l 1+ pitting edema Sepsis Peripheral Pulse Location: Radial Sepsis Peripheral Pulse Exam: Normal Last 24 Hrs of Labs/Martinez: Laboratory Tests 09/06/17 1205: Anion Gap 11, Estimated GFR 35 L, BUN/Creatinine Ratio 25.3 H, Glucose 171 H, Calcium 9.5, Total Bilirubin 0.4, AST 14, ALT 16, Alkaline Phosphatase 107, Troponin I 0.02, Iww-M-Gbvaotjeiib Pept 4300 H, Total Protein 7.0, Albumin 3.6, Globulin 3.4, Albumin/Globulin Ratio 1.1, CBC w Diff NO MAN DIFF REQ, RBC 3.47 L, MCV 87.6, MCH 28.3, MCHC 32.3 L, RDW 16.9 H, MPV 9.6, Gran % 82.1 H, Lymphocytes % 12.2 L, Monocytes % 4.3, Eosinophils % 1.0, Basophils % 0.4, Absolute Granulocytes 6.1, Absolute Lymphocytes 0.9 L, Absolute Monocytes 0.3, Absolute Eosinophils 0.1, Absolute Basophils 0 Diagnostic Data EKG Results Normal sinus rhythm, no ST changes. Assessment/Plan Assessment: Patient is a pleasant 67-year-old female with past medical history of heart failure with preserved ejection fraction, diabetes, hypertension, hyperlipidemia , CKD stage IIIB, came to ER with chief complaint of difficulty breathing. Patient states that she was in her usual state of health last night and when she woke up this morning, she noticed that she was increasingly getting short of breath. She stated that she was out of her breath on walking, she sat down and felt that she was too exhausted to eat anything. This was accompanied by wheezing, she states that she has been wheezing since past couple of days and also has productive cough with yellowish sputum. Denies any fever or chills, no sick contacts at home, no history of lung or leg clots. She states that she sleeps on her chair, and for bed she uses a big pillow on the back to help her breathe at night. 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 Her last follow-up was 3 months ago when she was told that she was doing well. Patient states that for her COPD she follows up with Dr. Maharaj at [place]. Patient lives alone, and is independent in her daily activities, is compliant with her medication and takes them by herself. Patient uses walker to move around, no recent falls. Labs and vitals as above. Recent echo from 05/09/17, Stage III diastolic heart failure with ejection fraction 65% Chest x-ray on 09/06 Bilateral pulmonary venous congestion Doppler ultrasound bilateral right extremity No clot Problem list 1. CHF exacerbation 2. Hypertensive urgency 3. CKD stage 3-stable 4. Diabetes 5. Chronic Anemia with intermittent uterine bleed Assessment and plan In ER, patient's pulse ox was 80% on room air, she was put on 3 L oxygen. After Lasix administration, she is saturating 98% on 1 L oxygen. We will monitor the patient on telemetry floor for her CHF exacerbation. Patient was given 40 IV Lasix in ER and her symptoms have visibly improved, her wheezing in bilateral lung fuentes is resolved. At home patient takes 20 by mouth Lasix every other day. We will start her on 20 by mouth Lasix from tomorrow. Will call cardiology consult, will repeat another set of troponins and EKG given her mild chest pressure. TRC nebs as needed. We will continue her inhalers. Patient is hypertensive in ER with systolic blood pressure of 193/77, will give her IV hydralazine in ER and then continue on her home medications. Of note she took her antihypertensive medications in a.m. before coming in. For diabetes will start her on NovoLog sliding scale and fingersticks 3 times a day and at bedtime. Will continue the rest of her home meds including losartan given his kidney function is at baseline, spironolactone, Singulair, Lexapro, Claritin, carvedilol, gabapentin, clonidine, pantoprazole. Patient reports that she has been having intermittent uterine bleeding and was due to follow with an CERTIFIED ORTHOTIST/PEDORTHIST but she could not. I explained to her in detail that she needs to see an CERTIFIED ORTHOTIST/PEDORTHIST at her earliest possible to rule out any uterine malignancy. DVT prophylaxis SC heparin Patient is full code. As Ranked By This Provider Problem List: 1. CHF (congestive heart failure) Qualifiers Heart failure type: unspecified Heart failure chronicity: acute on chronic Qualified Code: I50.9 - Heart failure, unspecified Core Measures/Misc (10/30) Acute Coronary Syndrome ACS Diagnosis: No Congestive Heart Failure Congestive Heart Failure Diagnosis Yes Last Known EF % 60 Cerebrovascular Accident CVA/TIA Diagnosis: No VTE (View Protocol) VTE Risk Factors Age>40 No Mechanical VTE Prophylaxis d/t N/A MechProphylax Ordered No VTE Pharm Prophylaxis d/t NA PharmProphylax ordered Sepsis (View protocol) Sepsis Present: No If YES complete Sepsis Event Note If YES complete Sepsis Event Note Demetris Naylor MD 09/06/17 2320: Core Measures/Misc (10/30) Sepsis (View protocol) If YES complete Sepsis Event Note If YES complete Sepsis Event Note Attending MD Review Statement Attending Statement Attending MD Statement: examined this patient, discuss w/resident/PA/OFFICE COORDINATOR, agreed w/resident/PA/OFFICE COORDINATOR, reviewed EMR data (avail), reviewed images, amended to note Attending Assessment/Plan: The patient is a 67 yo female with h/o CHF (preserved EF), DM2 with peripheral neuropathy, HTN, HL, depression, seasonal allergies, GERD, and CKD (3B) who presented in the [place] ED with c/o increased dyspnea at rest and with exertion. She also noted some seasonal allergies with cough productive of yellow thick mucous. She denied any fever or chills. She is followed by Dr. Nur for Cardiology and Dr. Maharaj for Nephrology. She has been compliant with her medications. In the ED her was 4300 and she was given IV furosemide with some improvement in breathing. Physical Exam: VS: T 97.9, P 79, R 26-22, BP 193/77-190/80, PO 85%RA- 100% 3L HEENT: eyes- PERRLA, EOMI gurvinder- moist mucosa Neck: no JVD/bruits Chest: few rales at bases Cor: BNP nl S1, S2 w/o murm Abd: BS+, soft, NT Ext: 1+ edema bilat, pulses 2+ Neuro: alert & oriented x 3, non-focal exam, gait not tested Labs/Tests- as above Impression/Plan: #CHF Exacerbation- as above, patient with evidence of recurrent CHF. Doubt ischemia, may be related to volume overload. Plan: Admit to Telemetry Service. IV Lasix- bid, follow I/O's & daily weights. Continue Sprinolactone. Check serial troponin I levels. Cardiology consult - Dr. Aldrich covering for Dr. Nur. #Elevated Troponin I Level- may be related to renal insufficiency vs ischemia. Plan: Monitor on telemetry, trend troponin levels. Repeat ECHO as per Cardiology. #Acute Hypoxic Respiratory Failure- pulse ox on presentation was 85% RA with tachypnea,etc. Due to CHF. Plan: The patient will be on oxygen at present and followed. #HTN- BP elevated as above. Plan: Continue Carvedilol, Losartan, etc. #CKD- near baseline. Concern regarding increased furosemide, etc. Plan: Follow [facility] while on Lasix. #Cough- with yellow mucous. Lungs clear- ? bronchitis. Plan: Patient given cup to collect sputum C&S. Consider Mucinex and empiric po Zithromax. #DM2- as above, patient has been doing well. Plan: Continue regimen as per Endo. Continue Glimepiride. #Depression- on Escitalopram. Plan: Continue Escitalopram.
--- NOTE | 2017-09-06 20:31 | Cons- Cardiology ---
General Information and HPI Consulting Request Date of Consult: 09/06/17 Requested By: Brenda Gilliland MD Reason for Consult: Heart failure History of Present Illness: The patient is a 67-year-old female with history of heart failure with preserved ejection fraction, diabetes mellitus, hypertension, hyperlipidemia, and chronic kidney disease. She presents with shortness of breath which is increased with walking. She also notes productive cough with yellow sputum. The symptoms have been worsening over the last few weeks and became significant Edwin worse in the day of admission. No chest pain. No palpitations. No syncope. No lightheadedness or dizziness. No nausea or vomiting. She notes recent wheezing. Allergies/Medications Allergies: Coded Allergies: NO KNOWN ALLERGIES (10/06/14) Home Med List: Acetaminophen (Tylenol Extra Strength) 500 MG TABLET 1-2 TAB PO 4 TIMES/DAY PRN Leg Pain Carvedilol (Coreg) 6.25 MG TABLET 1 TAB PO BID HTN (Reported) Clonidine (Catapres) 0.2 MG TABLET 1 TAB PO DAILY HTN (Reported) Diclofenac Sodium (Voltaren) 1 % GEL..GRAM. 1 GM TOP 4 TIMES/DAY JOINT PAIN apply to your knees Escitalopram Oxalate (Lexapro) 10 MG TABLET 1.5 TAB PO AT BEDTIME depression (Reported) Ferrous Sulfate 325 MG (65 MG IRON) TABLET 1 TAB PO BID IRON, VITAMIN ( Reported) Furosemide 20 MG TABLET 1 TAB PO Q48 WATER RETENTION (Reported) Gabapentin (Neurontin) 300 MG CAPSULE 1 CAP PO TID NEUROPATHY (Reported) Glimepiride (Amaryl) 4 MG TABLET 1 TAB PO DAILY DIABETES (Reported) Loratadine (Claritin) 10 MG TABLET 1 TAB PO DAILY ALLERGIES (Reported) Losartan Potassium 50 MG TABLET 1 TAB PO DAILY HTN Montelukast Sodium (Singulair) 10 MG TABLET 1 TAB PO DAILY SOB (Reported) Pantoprazole Sodium (Protonix) 40 MG TABLET.DR 1 TAB PO DAILY GI (Reported) Spironolactone (Aldactone) 25 MG TABLET 2 TAB PO DAILY WATER RETENTION ( Reported) Tramadol HCl 50 MG TABLET 1-2 TAB PO QPMP PRN PAIN (Reported) Current Medications: Current Medications Sig/Laure Start time Last Medication Dose Route Stop Time Status Admin Acetaminophen 650 MG Q8P PRN 09/06 1615 AC PO Carvedilol 6.25 MG BID 09/06 2100 AC PO Clonidine 0.2 MG DAILY 09/07 899 AC PO Diclofenac Sodium 1 DAVID 4 TIMES/DAY 09/06 1700 AC TOP Escitalopram Oxalate 15 MG AT BEDTIME 09/06 2100 AC 09/06 PO 2214 Furosemide 20 MG DAILY 09/07 09 AC PO Furosemide 0 .STK-MED ONE 09/06 1217 DC IV Furosemide 40 MG ONCE ONE 09/06 1145 DC 09/06 IV PUSH 09/06 1146 1310 Gabapentin 300 MG TID 09/06 2100 AC 09/06 PO 2213 Heparin Sodium 5,000 UNIT Q8 09/06 2200 AC 09/06 (Porcine) SC 2214 Hydralazine HCl 5 MG ONCE ONE 09/06 2215 UNVr IV 09/06 2216 Hydralazine HCl 0 .STK-MED ONE 09/06 1617 DC .ROUTE Hydralazine HCl 5 MG ONCE ONE 09/06 1600 DC 09/06 IV 09/06 1601 1622 Insulin Aspart 0 TIDAC 09/06 1700 AC 09/06 SC 1725 Loratadine 10 MG DAILY 09/07 09 AC PO Losartan Potassium 50 MG DAILY 09/07 899 AC PO Montelukast Sodium 10 MG DAILY 09/07 899 AC PO Nitroglycerin 0.4 MG ONCE ONE 09/06 1200 DC SL 09/06 1201 Omeprazole 40 MG DAILY AC 09/07 699 AC PO Spironolactone 50 MG DAILY 09/07 899 AC PO Tramadol HCl 50 MG QPM PRN 09/06 1615 AC PO Review of Systems Review of Systems: No fever. No chills. No rash. No tremor. No melena. All other systems were reviewed, and were noted to be negative. Past History Travel History Traveled to [place] past 21 day No Medical History Neurological: peripheral neuropathy EENT: allergies, diabetic retinopathy Cardiovascular: CHF, hypertension, hyperlipidemia Respiratory: bronchitis Gastrointestinal: GERD, appendicitis ventral hernia Hepatic: NONE Renal: abnormal kidney function Musculoskeletal: sciatica, arthritis Psychiatric: depression Endocrine: diabetes Blood Disorders: anemia Cancer(s): NONE RIP TAILER/Reproductive: NONE Surgical History Surgical History: appendectomy, hernia repair-ventral, cyst removal from breast exploratory laparotomy Family History Relations & Conditions If Any: SON Hypertension SISTER, , Age 60+; Cause: Heart disease. FH: CHF (congestive heart failure) FH: diabetes mellitus, Onset: 60+. FH: myocardial infarction BROTHER FH: diabetes mellitus GRANDFATHER FH: diabetes mellitus Psychosocial History Who Do You Live With? self Services at Home: Home Health Aide Primary Language: Greek ETOH Use: denies use Illicit Drug Use: denies illicit drug use Functional Ability ADLs Independent: dressing, eating, toileting, bathing. Ambulation: cane, walker, 2/2 neuropathy IADLs Independent: finances, food prep, telephone, transportation, medication admin. Needs Assist: shopping, housework. Exam & Diagnostic Data Vital Signs and I&O Vital Signs Date Time Temp Pulse Resp B/P B/P Pulse O2 O2 Flow FiO2 Mean Ox Delivery Rate 09/06 1706 98.1 80 20 158/74 100 Nasal 1.0L Cannula 09/06 1641 97 Nasal 1.0L Cannula 09/06 1356 98.1 58 22 190/80 100 Nasal 3.0L Cannula 09/06 1056 93 Nasal 3.0L Cannula 09/06 1045 61 190/79 93 Nasal 3.0L Cannula 09/06 1032 97.9 79 26 193/77 91 Nasal 3.0L Cannula 09/06 1030 85 Room Air Intake & Output 09/06 1600 09/06 0800 09/06 0000 09/05 1600 09/05 0800 09/05 0000 Intake Total Output Total 1400 Balance -1400 Output, Urine 1400 Patient 318 lb Weight Weight Reported by Patient Measurement Method Physical Exam: Gen: The patient is in no acute distress HEENT: Normal nose, ears, and oropharynx. Pupils equal bilaterally. Conjunctiva normal. Neck: Supple with no JVD, no masses, and no thyromegaly Lungs: Bilateral rales with normal respiratory effort Heart: RRR, S1, S2, no murmurs. 1+ peripheral edema, 2+ pulses in the lower extremities bilaterally Abdomen: Soft, nontender, no masses. No hepatomegaly. No splenomegaly Extremities: No clubbing or cyanosis. Normal muscle strength in the upper and lower extremities Skin: Normal skin turgor with no skin ulcers or lesions noted. Neuro: Cranial nerves intact. Sensation intact Psych: Alert and oriented x 3 with appropriate affect Labs/Martinez Results: Laboratory Tests 09/06 09/06 1902 1205 Chemistry Sodium (137 - 145 mmol/L) 142 Potassium (3.5 - 5.1 mmol/L) 5.1 Chloride (98 - 107 mmol/L) 104 Carbon Dioxide (22 - 30 mmol/L) 27 Anion Gap (5 - 16) 11 BUN (7 - 17 mg/dL) 38 H Creatinine (0.5 - 1.0 mg/dL) 1.5 H Estimated GFR (>60 ml/min) 35 L BUN/Creatinine Ratio (7 - 25 %) 25.3 H Glucose (65 - 99 mg/dL) 171 H Calcium (8.4 - 10.2 mg/dL) 9.5 Total Bilirubin (0.2 - 1.3 mg/dL) 0.4 AST (14 - 36 U/L) 14 ALT (9 - 52 U/L) 16 Alkaline Phosphatase (<127 U/L) 107 Troponin I (< 0.11 ng/ml) 0.21 *H 0.02 [id number] Pept (<125 pg/mL) 4300 H Total Protein (6.3 - 8.2 g/dL) 7.0 Albumin (3.5 - 5.0 g/dL) 3.6 Globulin (1.9 - 4.2 gm/dL) 3.4 Albumin/Globulin Ratio (1.1 - 2.2 %) 1.1 Hematology CBC w Diff NO MAN DIFF REQ WBC (4.8 - 10.8 /CUMM) 7.4 RBC (4.20 - 5.40 /CUMM) 3.47 L Hgb (12.0 - 16.0 G/DL) 9.8 L Hct (37 - 47 %) 30.4 L MCV (81.0 - 99.0 FL) 87.6 MCH (27.0 - 31.0 PG) 28.3 MCHC (33.0 - 37.0 G/DL) 32.3 L RDW (11.5 - 14.5 %) 16.9 H Plt Count (130 - 400 /CUMM) 289 MPV (7.4 - 10.4 FL) 9.6 Gran % (42.2 - 75.2 %) 82.1 H Lymphocytes % (20.5 - 51.1 %) 12.2 L Monocytes % (1.7 - 9.3 %) 4.3 Eosinophils % (0 - 5 %) 1.0 Basophils % (0.0 - 2.0 %) 0.4 Absolute Granulocytes (1.4 - 6.5 /CUMM) 6.1 Absolute Lymphocytes (1.2 - 3.4 /CUMM) 0.9 L Absolute Monocytes (0.10 - 0.60 /CUMM) 0.3 Absolute Eosinophils (0.0 - 0.7 /CUMM) 0.1 Absolute Basophils (0.0 - 0.2 /CUMM) 0 Diagnostic Data EKG Results EKG tracing is independently reviewed, and reveals normal sinus rhythm at 64 with left axis deviation CXR Results Radiographic findings most consistent with CHF. Follow-up examination recommended status post treatment to ensure resolution. Assessment/Plan Assessment/Plan The patient is a 67-year-old female history of diabetes mellitus, hypertension, hyperlipidemia, and chronic kidney disease presenting with acute on chronic heart failure with preserved ejection fraction. Troponin levels are mildly elevated, which is likely secondary to demand ischemia. Blood pressure is uncontrolled. Recommendations: * Lasix 20 mg IV every 12 hours * Continue carvedilol, clonidine, and losartan for hypertension * If blood pressure continues to be elevated, the losartan dose should be increased to 100 mg daily * Continue spironolactone * Check repeat troponin * Monitor input and output with daily weights * Repeat echocardiogram Consult Acknowledgment - Thank you for your consult request.
[2017-09-06 21:54] VITALS: BP 190/96
--- NOTE | 2017-09-06 23:53 | Admission Certification ---
Admission Certification Certification Statement - As attending physician, I certify that at the time of - admission, based on clinical presentation, severity of - symptoms, need for further diagnostic testing and - therapeutic interventions, and risk of adverse outcomes - without in-hospital treatment, in my clinical assessment, - this patient requires an acute hospital stay for a minimum - of two nights or longer. I have also considered psychsocial - factors such as support system, advanced age, financial - issues, cognitive issues, and failed out-patient treatments, - past re-admission history, safety of patient, and lack of - compliance as applicable. Specific rationale supporting this admission is: The patient presented with acute excacerbation of CHF (EF preserved). She also has elevated troponin I level. She needs to be admitted to telemetry sevice. IV Furosemide, daily weights, trend troponin levels, ECHO.
[2017-09-07 00:24] VITALS: BP 204/106
[2017-09-07 02:45] VITALS: BP 192/88
--- NOTE | 2017-09-07 06:19 | PN- Housestaff ---
See Addendum Subjective Follow-up For: CHF exacerbation Hypertensive urgency CKD stage 3-stable Diabetes Tele-Events Since Last Visit: Normal sinus rhythm, with a single run of SVT at 130bpm early this morning Subjective: Patient seen sitting up at the side of the bed, getting ready to wash-up for the morning. Currently, no urgent complaints, and no overnight events. She does report swelling in her bilateral lower extremities, with more swelling in the right, and continued shortness of breath, but denies chest pain, dizziness, nausea or diaphoresis. Review of Systems Constitutional: Denies: chills, diaphoresis, fever, weakness. Cardiovascular: Reports: edema, peripheral edema. Denies: chest pain, palpitations. Respiratory: Reports: cough, short of breath. Denies: wheezing. Gastrointestinal: Denies: abdominal pain, nausea, vomiting. Objective Last 24 Hrs of Vital Signs/I&O Vital Signs Date Time Temp Pulse Resp B/P B/P Pulse O2 O2 Flow FiO2 Mean Ox Delivery Rate 09/07 1430 98.2 55 18 148/62 97 Room Air 09/07 0815 62 160/84 09/07 0815 62 160/84 09/07 0814 62 160/84 09/07 0800 95 Room Air Room Air 09/07 0655 98.8 59 20 114/60 96 Room Air 09/07 0325 68 192/88 09/07 0245 68 192/88 09/07 0149 71 206/106 09/07 0048 68 204/106 09/07 0024 68 204/106 09/06 2300 86 190/96 09/06 2154 98.7 67 18 190/96 93 Room Air 09/06 2037 Room Air Intake & Output 09/07 1600 09/07 0800 09/07 0000 Intake Total 620 380 120 Output Total 850 1100 900 Balance -230 -720 -780 Intake, IV 20 Intake, Oral 600 380 120 Output, Urine 850 1100 900 Patient 142.116 kg Weight Weight Bed scale Measurement Method Physical Exam General Appearance: Alert, Oriented X3, Cooperative, No Acute Distress HEENT: Atraumatic, PERRLA, EOMI, Mucous membranes dry Neck: Supple, No thryomegaly, +2 Carotid Pulse wo Bruit Cardiovascular: Regular Rate, Normal S1, Normal S2, No Murmurs Lungs: Clear to Auscultation Abdomen: Normal Bowel Sounds, Soft, No Tenderness Neurological: Normal Speech, Strength at 5/5 X4 Ext Extremities: Edema bilateral lower extremities Assessment/Plan Assessment: 67 year old morbidly obese female with history of HTN, HLD, DM and CKD stage 3 presenting for shortness of breath with cough and intermittent chest pain. Troponins were elevated, and peaked at 0.26, before settling at 0.25 for the final set. The patient's BUN and Cr this morning were elevated, but stable at 39 and 1.6 respectively. She is also chronically anemic, with an HgB of 9.2 this morning. Venous ultrasound done yesterday was negative for DVT, including the swollen right lower extremity, and no Bravo's cyst, while CXR yesterday showed interstitial markings consistent with CHF. Blood pressure this morning was 114/ 60, down from 192/88, but shortly thereafter was noted to be 160/84. Problems: 1. Acute exacerbation of HFpEF 2. Hypertensive urgency 3. CKD Stage 3 (stable) 4. Diabetes mellitus, non-insulin dependent 5. Chronic anemia Plan: * Echocardiogram * Recommend patient follow-up with the [facility] clinic, post-discharge * Diurese with IV Lasix 20mg IV BID * Hydralazine for hypertensive urgency, to switch to Losartan as tolerated to keep BP down; patient on 0.2mg clonidine at home daily, continue Problem List: 1. CHF (congestive heart failure) 2. Hypertensive urgency 3. (HFpEF) heart failure with preserved ejection fraction 4. Acute diastolic CHF (congestive heart failure) 5. Non-insulin dependent type 2 diabetes mellitus Pain Ratin Pain Location: none Pain Goal: Pain 4 or less Pain Plan: per pathway Tomorrow's Labs & Rationales: CBC & BEP
[2017-09-07 06:55] VITALS: BP 114/60
[2017-09-07 08:13] LABS: ABSOLUTE BASOPHIL COUNT 0 /CUMM (0.0-0.2); ABSOLUTE EOSINOPHIL COUNT 0.1 /CUMM (0.0-0.7); ABSOLUTE GRANULOCYTE CT 4.6 /CUMM (1.4-6.5); ABSOLUTE MONOCYTE COUNT 0.5 /CUMM (0.10-0.60); BASOPHIL % 0.6 % (0.0-2.0); EOSINOPHIL % 1.1 % (0-5); GRANULOCYTE % 75.1 % (42.2-75.2); HEMATOCRIT 27.8 % (37-47); MEAN CORPUSCULAR HGB 28.7 PG (27.0-31.0); MEAN CORPUSCULAR VOLUME 86.9 FL (81.0-99.0); MEAN PLATELET VOLUME 10.4 FL (7.4-10.4); PLATELET COUNT 248 /CUMM (130-400); RBC DISTRIBUTION WIDTH 17.3 % (11.5-14.5); WHITE BLOOD CELL COUNT 6.2 /CUMM (4.8-10.8)
--- NOTE | 2017-09-07 11:27 | PN- Cardiology ---
Subjective Subjective: Shortness of breath is improving. No chest pain. No palpitations. No diaphoresis. No lightheadedness or dizziness. No nausea or vomiting. Objective Vital Signs and I&Os Vital Signs Date Time Temp Pulse Resp B/P B/P Pulse O2 O2 Flow FiO2 Mean Ox Delivery Rate 09/07 0815 62 160/84 09/07 0815 62 160/84 09/07 0814 62 160/84 09/07 0800 95 Room Air Room Air 09/07 0655 98.8 59 20 114/60 96 Room Air 09/07 0325 68 192/88 09/07 0245 68 192/88 09/07 0149 71 206/106 09/07 0048 68 204/106 09/07 0024 68 204/106 09/06 2300 86 190/96 09/06 2154 98.7 67 18 190/96 93 Room Air 09/06 2037 Room Air 09/06 1706 98.1 80 20 158/74 100 Nasal 1.0L Cannula 09/06 1641 97 Nasal 1.0L Cannula 09/06 1356 98.1 58 22 190/80 100 Nasal 3.0L Cannula Intake & Output 09/07 1600 09/07 0800 09/07 0000 09/06 1600 09/06 0800 09/06 0000 Intake Total 380 120 Output Total 2096 595 4231 Balance -720 -780 -1400 Intake, Oral 380 120 Output, Urine 9804 060 3761 Patient 313 lb 318 lb Weight Weight Bed scale Reported by Patient Measurement Method Physical Exam: Gen: The patient is in no acute distress HEENT: Normal nose, ears, and oropharynx. Pupils equal bilaterally. Conjunctiva normal. Neck: Supple with no JVD, no masses, and no thyromegaly Lungs: Bilateral rales with normal respiratory effort Heart: RRR, S1, S2, no murmurs. 1+ peripheral edema, 2+ pulses in the lower extremities bilaterally Abdomen: Soft, nontender, no masses. No hepatomegaly. No splenomegaly Extremities: No clubbing or cyanosis. Normal muscle strength in the upper and lower extremities Skin: Normal skin turgor with no skin ulcers or lesions noted. Neuro: Cranial nerves intact. Sensation intact Current Medications: Current Medications Sig/Laure Start time Last Medication Dose Route Stop Time Status Admin Acetaminophen 650 MG Q8P PRN 09/06 1615 AC PO Azithromycin 500 MG ONCE ONE 09/07 0630 DC 09/07 PO 09/07 0631 0831 Carvedilol 6.25 MG BID 09/06 2100 AC 09/07 PO 0815 Clonidine 0.2 MG DAILY 09/07 0900 AC 09/07 PO 0814 Clonidine 0.2 MG ONE ONE 09/07 0330 DC 09/07 PO 09/07 0331 0325 Diclofenac Sodium 1 DAVID 4 TIMES/DAY 09/06 1700 AC 09/07 TOP 0815 Escitalopram Oxalate 15 MG AT BEDTIME 09/06 2100 AC 09/06 PO 2214 Furosemide 20 MG DAILY 09/07 0900 CAN PO Furosemide 20 MG Q12 09/07 0900 AC 09/07 IV 0815 Furosemide 0 .STK-MED ONE 09/06 1217 DC IV Furosemide 40 MG ONCE ONE 09/06 1145 DC 09/06 IV PUSH 09/06 1146 1310 Gabapentin 300 MG TID 09/06 2100 AC 09/07 PO 0815 Guaifenesin 600 MG Q12 09/07 0900 AC 09/07 PO 0816 Heparin Sodium 5,000 UNIT Q8 09/06 2200 AC 09/07 (Porcine) SC 0608 Hydralazine HCl 5 MG ONCE ONE 09/07 0045 DC 09/07 IV 09/07 0046 0048 Hydralazine HCl 5 MG ONCE ONE 09/06 2215 DC 09/06 IV 09/06 2216 2300 Hydralazine HCl 0 .STK-MED ONE 09/06 1617 DC .ROUTE Hydralazine HCl 5 MG ONCE ONE 09/06 1600 DC 09/06 IV 09/06 1601 1622 Insulin Aspart 0 TIDAC 09/06 1700 AC 09/07 SC 0816 Loratadine 10 MG DAILY 09/07 0900 AC 09/07 PO 0815 Losartan Potassium 50 MG DAILY 09/07 0900 AC 09/07 PO 0815 Losartan Potassium 50 MG ONCE ONE 09/07 0145 DC 09/07 PO 09/07 0146 0149 Montelukast Sodium 10 MG DAILY 09/07 0900 AC 09/07 PO 0815 Nitroglycerin 0.4 MG ONCE ONE 09/06 1200 DC SL 09/06 1201 Omeprazole 40 MG DAILY AC 09/07 0700 AC 09/07 PO 0607 Spironolactone 50 MG DAILY 09/07 0900 AC 09/07 PO 0814 Tramadol HCl 50 MG QPM PRN 09/06 1615 AC PO Results Last 48 Hrs of Labs/Mics: Laboratory Tests 09/07/17 0640: Anion Gap 11, Estimated GFR 32 L, BUN/Creatinine Ratio 24.4, Troponin I 0.25 *H , CBC w Diff NO MAN DIFF REQ, RBC 3.20 L, MCV 86.9, MCH 28.7, MCHC 33.0, RDW 17.3 H, MPV 10.4, Gran % 75.1, Lymphocytes % 15.8 L, Monocytes % 7.4, Eosinophils % 1.1, Basophils % 0.6, Absolute Granulocytes 4.6, Absolute Lymphocytes 1.0 L, Absolute Monocytes 0.5, Absolute Eosinophils 0.1, Absolute Basophils 0 09/07/17 0040: Troponin I 0.26 *H 09/06/17 1902: Troponin I 0.21 *H 09/06/17 1205: Anion Gap 11, Estimated GFR 35 L, BUN/Creatinine Ratio 25.3 H, Glucose 171 H, Calcium 9.5, Total Bilirubin 0.4, AST 14, ALT 16, Alkaline Phosphatase 107, Troponin I 0.02, Wdj-M-Dwjiassqrhg Pept 4300 H, Total Protein 7.0, Albumin 3.6, Globulin 3.4, Albumin/Globulin Ratio 1.1, CBC w Diff NO MAN DIFF REQ, RBC 3.47 L, MCV 87.6, MCH 28.3, MCHC 32.3 L, RDW 16.9 H, MPV 9.6, Gran % 82.1 H, Lymphocytes % 12.2 L, Monocytes % 4.3, Eosinophils % 1.0, Basophils % 0.4, Absolute Granulocytes 6.1, Absolute Lymphocytes 0.9 L, Absolute Monocytes 0.3, Absolute Eosinophils 0.1, Absolute Basophils 0 Assessment/Plan Assessment/Plan Assessment: 1. Hypertension, uncontrolled 2. Diabetes mellitus 3. Acute on chronic HFpEF 4. Mild troponin elevation secondary to demand ischemia Plan: * Continue IV Lasix * Monitor input and output with daily weight * Increase losartan to 100 mg daily for additional blood pressure control * Check basic metabolic profile daily * Continue other cardiac medications * Echocardiogram pending Continue telemetry? Yes
[2017-09-07 14:30] VITALS: BP 148/62
--- NOTE | 2017-09-07 16:04 | Patient Discharge Instructions ---
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 Diet Continue normal diet: Yes Recommended Diet: Heart Healthy Activity Full Activity/No Limits: No Activity Self Limited: Yes Acute Coronary Syndrome Inclusion Criteria At DC or during hospital stay patient has or had the following: ACS DIAGNOSIS No Discharge Core Measures Meds if any: Prescribed or Continued at Discharge Meds if any: NOT Prescribed or Continued at Discharge Congestive Heart Failure Inclusion Criteria At DC or during hospital stay patient has or had the following: CHF DIAGNOSIS Yes Discharge Core Measures Meds if any: Prescribed or Continued at Discharge COLT/ARB for EF <40% No Meds if any: NOT Prescribed or Continued at Discharge No COLT/ARB d/t Renal Failure/Azotemia Cerebrovascular accident Inclusion Criteria At DC or during hospital stay patient has or had the following: CVA/TIA Diagnosis No Discharge Core Measures Meds if any: Prescribed or Continued at Discharge Meds if any: NOT Prescribed or Continued at Discharge Venous thromboembolism Inclusion Criteria VTE Diagnosis No VTE Type NONE VTE Confirmed by (Test) NONE Discharge Core Measures - Per Current guidelines, there needs to be overlap - treatment for the first 5 days of Warfarin therapy. - If discharged on Warfarin prior to 5 days of - overlap therapy, the patient will need to be - assessed for post discharge needs including - *Post discharge parental anticoagulation - *Warfarin and/or parental anticoagulation education - *Follow up date to check INR post discharge At least 5 days overlap therapy as Inpatient No Meds if any: Prescribed or Continued at Discharge Note: Overlap Therapy is Warfarin and Anticoagulant Meds if any: NOT Prescribed or Continued at Discharge
[2017-09-07 22:00] VITALS: BP 180/94
[2017-09-08 06:28] VITALS: BP 140/68
--- NOTE | 2017-09-08 06:34 | PN- Housestaff ---
See Addendum Subjective Follow-up For: CHF exacerbation Hypertensive urgency CKD stage 3-stable Diabetes Tele-Events Since Last Visit: Overnight in sinus bradycardia with rates 50-57 bpm Subjective: Patient seen resting comfortably in the bed. She states that she is feeling much better, denies chest pain, shortness of breath, palpitations, or dizziness. She does report continued edema bilateral lower extremities, with the right being worse than the left, her right lower extremity is tender as well. She denies fever, chills, abdominal pain, nausea or vomiting, and reports that the Lasix is making her urinate regularly. Review of Systems Constitutional: Denies: chills, fever, weakness. Cardiovascular: Reports: edema, orthopena, peripheral edema. Denies: chest pain, palpitations. Respiratory: Denies: cough, short of breath, sputum production. Gastrointestinal: Denies: abdominal pain, nausea, vomiting. Objective Last 24 Hrs of Vital Signs/I&O Vital Signs Date Time Temp Pulse Resp B/P B/P Pulse O2 O2 Flow FiO2 Mean Ox Delivery Rate 09/08 0628 98.2 58 18 140/68 98 Room Air 09/07 2200 97.6 62 16 180/94 96 09/07 2118 55 148/62 09/07 1430 98.2 55 18 148/62 97 Room Air 09/07 0815 62 160/84 09/07 0815 62 160/84 09/07 0814 62 160/84 09/07 0800 95 Room Air Room Air Intake & Output 09/08 0800 09/08 0000 09/07 1600 Intake Total 400 620 Output Total 1250 850 Balance -850 -230 Intake, IV 20 Intake, Oral 400 600 Output, Urine 1250 850 Patient 140.273 kg Weight Physical Exam General Appearance: Alert, Oriented X3, Cooperative, No Acute Distress HEENT: Atraumatic, PERRLA, EOMI Neck: Supple, No JVD, No thryomegaly, +2 Carotid Pulse wo Bruit Cardiovascular: Regular Rate, Normal S1, Normal S2, Gallops (s3) Lungs: Clear to Auscultation Abdomen: Normal Bowel Sounds, Soft, No Tenderness Neurological: Normal Gait, Normal Speech Assessment/Plan Assessment: 67 year old morbidly obese female with history of HTN, HLD, DM and CKD stage 3 presenting for shortness of breath with cough and intermittent chest pain. Troponins were elevated, and peaked at 0.26, before settling at 0.25 for the final set. The patient's BUN and Cr this morning were elevated, but stable at 42 and 1.7 respectively. She is also chronically anemic, with an HgB of 9.1 this morning. Venous ultrasound was negative for DVT, including the swollen right lower extremity, and no Bravo's cyst. Blood pressure this morning was 140/68 before rising to 166/62, and then manually rechecked to be 125/80. Echocardiogram showed LVEF greater than 55%. Problems: 1. Acute exacerbation of HFpEF 2. Hypertensive urgency 3. CKD Stage 3 (stable) 4. Diabetes mellitus, non-insulin dependent 5. Chronic anemia Plan: * Recommend patient follow-up with the [facility] Wellness clinic, post-discharge * Diurese with IV Lasix 40mg p.o. daily, and to continue as an outpatient * Losartan and clonidine for blood pressure management Problem List: 1. CKD (chronic kidney disease) stage 3, GFR 30-59 ml/min 2. CHF (congestive heart failure) 3. Hypertensive urgency 4. (HFpEF) heart failure with preserved ejection fraction Pain Ratin Pain Location: none Pain Goal: Pain 4 or less Pain Plan: per pathway Tomorrow's Labs & Rationales: cbc & bep
[2017-09-08 08:21] LABS: ABSOLUTE BASOPHIL COUNT 0 /CUMM (0.0-0.2); ABSOLUTE EOSINOPHIL COUNT 0.1 /CUMM (0.0-0.7); ABSOLUTE GRANULOCYTE CT 2.6 /CUMM (1.4-6.5); ABSOLUTE LYMPH COUNT 1.2 /CUMM (1.2-3.4); ABSOLUTE MONOCYTE COUNT 0.4 /CUMM (0.10-0.60); BASOPHIL % 0.7 % (0.0-2.0); EOSINOPHIL % 2.3 % (0-5); GRANULOCYTE % 58.5 % (42.2-75.2); HEMATOCRIT 27.8 % (37-47); MEAN CORPUSCULAR HGB 28.4 PG (27.0-31.0); MEAN CORPUSCULAR HGB CONC 32.5 G/DL (33.0-37.0); MEAN CORPUSCULAR VOLUME 87.4 FL (81.0-99.0); PLATELET COUNT 209 /CUMM (130-400); RBC DISTRIBUTION WIDTH 17.5 % (11.5-14.5); RED BLOOD CELL CT 3.18 /CUMM (4.20-5.40); WHITE BLOOD CELL COUNT 4.4 /CUMM (4.8-10.8)
[2017-09-08 08:30] VITALS: BP 166/62
--- NOTE | 2017-09-08 12:20 | ECHOCARDIOGRAM REPORT ---
DWAYNE COX Age: 67 : 1950 Gender: F Exam Date: 09/07/2017 18:29 Exam Location: [address] Ht (in): 68 Wt (lb): 313 BSA: 2.69 BP: 160 / 84 Ordering Physician: Otilia Madrigal MD Referring Physician: Marshall Aldrich MD Technologist: Beata Drummond [facility] Room Number: [id number] Indications: Chest pain Rhythm: Sinus Technical Quality: Good FINDINGS Left Ventricle Normal size left ventricle. Moderate concentric left ventricular hypertrophy. Normal left ventricular ejection fraction visually estimated at >55%. No obvious regional wall motion abnormalities. Abnormal relaxation filling pattern of the left ventricle for age (stage 1 diastolic dysfunction). Right Ventricle Normal right ventricular size and function. Right Atrium Normal right atrial size. Left Atrium Mild left atrial dilatation. Mitral Valve Moderate mitral annular calcification. Mitral valve thickened. Trace mitral regurgitation. Aortic Valve Diffuse thickening (sclerosis) of the aortic valve cusps without reduced excursion. Tricuspid Valve Tricuspid valve not well visualized, grossly normal. Trace tricuspid regurgitation. No evidence of pulmonary hypertension. Pulmonic Valve Pulmonic valve not well visualized, grossly normal. Trace pulmonic regurgitation. Pericardium No pericardial effusion. Great Vessels Normal size aortic root. CONCLUSIONS Normal size left ventricle. Moderate concentric left ventricular hypertrophy. Normal left ventricular ejection fraction visually estimated at > 55%. Abnormal relaxation filling pattern of the left ventricle for age (stage 1 diastolic dysfunction). Mild left atrial dilatation. Trace mitral regurgitation. Marshall Aldrich M.D. (Electronically Signed) Final Date: 08 September 2017 12:14 MEASUREMENTS (Male / Female) Normal Values 2D ECHO LV Diastolic Diameter PLAX 5.4 cm 4.2 - 5.9 / 3.9 - 5.3 cm LV Systolic Diameter PLAX 2.9 cm 2.1 - 4.0 cm LV Fractional Shortening PLAX 46.3 % 25 - 46 % LV Ejection Fraction 2D Teich 77.2 % IVS Diastolic Thickness 1.7 cm LVPW Diastolic Thickness 1.7 cm LV Relative Wall Thickness 0.6 RV Internal Dim ED PLAX 2.6 cm 1.9 - 3.8 cm LVOT Diameter 2.3 cm Aortic Root Diameter 3.4 cm LA Systolic Diameter LX 4.5 cm 3.0 - 4.0 / 2.7 - 3.8 cm LA Volume 78.0 cm 18 - 58 / 22 - 52 cm Ascending Aorta Diameter 3.2 cm DOPPLER AV Peak Velocity 187.0 cm/s AV Peak Gradient 14.0 mmHg AV Mean Velocity 119.0 cm/s AV Mean Gradient 7.0 mmHg AV Velocity Time Integral 39.5 cm LVOT Peak Velocity 120.0 cm/s LVOT Peak Gradient 5.8 mmHg LVOT Mean Velocity 88.1 cm/s LVOT Mean Gradient 3.0 mmHg LVOT Velocity Time Integral 31.3 cm LVOT Stroke Volume 130.0 cm AV Area Cont Eq vti 3.3 cm AV Area Cont Eq pk 2.7 cm MV Peak Velocity 146.0 cm/s MV Peak Gradient 8.5 mmHg MV Mean Velocity 75.9 cm/s MV Mean Gradient 3.0 mmHg Mitral E Point Velocity 119.0 cm/s Mitral A Point Velocity 146.0 cm/s Mitral E to A Ratio 0.8 MV PHT Velocity 105.0 cm/s MV Deceleration [place] 218.0 cm/s MV Pressure Half Time 144.5 ms MV Area PHT 1.5 cm MV Deceleration Time 362.0 ms TR Peak Velocity 140.0 cm/s TR Peak Gradient 7.8 mmHg Right Atrial Pressure 5.0 mmHg Pulmonary Artery Systolic Pressure 12.8 mmHg Right Ventricular Systolic Pressure 12.8 mmHg PV Peak Velocity 141.0 cm/s PV Peak Gradient 8.0 mmHg PV Mean Velocity 96.7 cm/s PV Mean Gradient 4.0 mmHg PV Velocity Time Integral 41.5 cm LV E' Lateral Velocity 6.3 cm/s Mitral E to LV E' Lateral Ratio 18.7 LV E' Septal Velocity 4.2 cm/s Mitral E to LV E' Septal Ratio 28.4
--- NOTE | 2017-09-08 12:53 | PN- Cardiology ---
Subjective Subjective: Shortness of breath is improved. Feeling better. No chest pain. No palpitations. No diaphoresis. No lightheadedness or dizziness Objective Vital Signs and I&Os Vital Signs Date Time Temp Pulse Resp B/P B/P Pulse O2 O2 Flow FiO2 Mean Ox Delivery Rate 09/08 0830 70 166/62 09/08 0830 70 166/62 09/08 0829 70 166/62 09/08 0800 95 Room Air Room Air 09/08 0628 98.2 58 18 140/68 98 Room Air 09/07 2200 97.6 62 16 180/94 96 09/07 2118 55 148/62 09/07 1430 98.2 55 18 148/62 97 Room Air Intake & Output 09/08 1600 09/08 0809/08 0000 09/07 1600 09/07 0000 Intake Total 440 400 620 380 120 Output Total 800 6788 627 7752 900 Balance -360 -850 -230 -720 -780 Intake, IV 20 Intake, Oral 440 400 600 380 120 Output, Urine 800 3502 555 2200 900 Patient 309 lb 313 lb Weight Weight Bed scale Measurement Method Physical Exam: Gen: The patient is in no acute distress HEENT: Normal nose, ears, and oropharynx. Pupils equal bilaterally. Conjunctiva normal. Neck: Supple with no JVD, no masses, and no thyromegaly Lungs: Bilateral rales with normal respiratory effort Heart: RRR, S1, S2, no murmurs. 1+ peripheral edema, 2+ pulses in the lower extremities bilaterally Abdomen: Soft, nontender, no masses. No hepatomegaly. No splenomegaly Extremities: No clubbing or cyanosis. Normal muscle strength in the upper and lower extremities Skin: Normal skin turgor with no skin ulcers or lesions noted. Neuro: Cranial nerves intact. Sensation intact Current Medications: Current Medications Sig/Laure Start time Last Medication Dose Route Stop Time Status Admin Acetaminophen 650 MG Q8P PRN 09/06 1615 AC PO Carvedilol 6.25 MG BID 09/06 2099 AC 09/08 PO 0830 Clonidine 0.2 MG DAILY 09/07 0900 AC 09/08 PO 0829 Diclofenac Sodium 1 DAVID 4 TIMES/DAY 09/06 1700 AC 09/08 TOP 0840 Escitalopram Oxalate 15 MG AT BEDTIME 09/06 2099 AC 09/07 PO 2118 Furosemide 20 MG DAILY 09/08 0900 AC PO Furosemide 20 MG 0730,1630 09/08 0730 DC 09/08 IV 0833 Furosemide 20 MG Q12 09/07 0900 DC 09/07 IV 2118 Gabapentin 300 MG TID 09/06 2100 AC 09/08 PO 0828 Guaifenesin 600 MG Q12 09/07 0900 AC 09/08 PO 0828 Heparin Sodium 5,000 UNIT Q8 09/06 2200 AC 09/08 (Porcine) SC 0823 Insulin Aspart 0 TIDAC 09/06 1700 AC 09/08 SC 1223 Loratadine 10 MG DAILY 09/07 0900 AC 09/08 PO 0830 Losartan Potassium 100 MG DAILY 09/08 0900 AC 09/08 PO 0830 Losartan Potassium 50 MG DAILY 09/07 09 DC 09/07 PO 0815 Montelukast Sodium 10 MG DAILY 09/07 0900 AC 09/08 PO 0828 Omeprazole 40 MG DAILY AC 09/07 0700 AC 09/08 PO 0829 Spironolactone 50 MG DAILY 09/07 0900 AC 09/08 PO 0828 Tramadol HCl 50 MG QPM PRN 09/06 1615 AC PO Results Last 48 Hrs of Labs/Mics: Laboratory Tests 09/08/17 0707: Anion Gap 13, Estimated GFR 30 L, BUN/Creatinine Ratio 24.7, CBC w Diff NO MAN DIFF REQ, RBC 3.18 L, MCV 87.4, MCH 28.4, MCHC 32.5 L, RDW 17.5 H, MPV 10.0, Gran % 58.5, Lymphocytes % 28.3, Monocytes % 10.2 H, Eosinophils % 2.3, Basophils % 0.7, Absolute Granulocytes 2.6, Absolute Lymphocytes 1.2, Absolute Monocytes 0.4, Absolute Eosinophils 0.1, Absolute Basophils 0 09/07/17 0640: Anion Gap 11, Estimated GFR 32 L, BUN/Creatinine Ratio 24.4, Troponin I 0.25 *H , CBC w Diff NO MAN DIFF REQ, RBC 3.20 L, MCV 86.9, MCH 28.7, MCHC 33.0, RDW 17.3 H, MPV 10.4, Gran % 75.1, Lymphocytes % 15.8 L, Monocytes % 7.4, Eosinophils % 1.1, Basophils % 0.6, Absolute Granulocytes 4.6, Absolute Lymphocytes 1.0 L, Absolute Monocytes 0.5, Absolute Eosinophils 0.1, Absolute Basophils 0 09/07/17 0040: Troponin I 0.26 *H 09/06/17 1902: Troponin I 0.21 *H Recent Imaging Studies: Normal size left ventricle. Moderate concentric left ventricular hypertrophy. Normal left ventricular ejection fraction visually estimated at > 55%. Abnormal relaxation filling pattern of the left ventricle for age (stage 1 diastolic dysfunction). Mild left atrial dilatation. Trace mitral regurgitation. Assessment/Plan Assessment/Plan Assessment: 1. Hypertension, uncontrolled 2. Diabetes mellitus 3. Acute on chronic HFpEF 4. Mild troponin elevation secondary to demand ischemia Plan: * Possible discharge to home * Would give Lasix 40 mg p.o. daily on discharge * Continue other cardiac medication * Follow up with Dr. Nur in 1 week. Continue telemetry? No
[2017-09-08] MEDS ORDERED: LOSARTAN POTAS100 M1 PO (13:12)
--- NOTE | 2017-09-08 15:42 | Discharge Summary ---
Visit Information Visit Dates Admission Date: 09/06/17 Discharge Date: 09/08/17 Hospital Course Course Attending Physician: Demetris Naylor MD Primary Care Physician: Edis Barone APRN [facility] Course: Patient is a pleasant 67-year-old female with past medical history of heart failure with preserved ejection fraction, diabetes, hypertension, hyperlipidemia , CKD stage IIIB, came to ER with chief complaint of difficulty breathing. Patient stated that she was in her usual state of health the night prior to admission and when she woke up in the morning, she noticed that she was increasingly getting short of breath. She stated that she was out of her breath on walking, she sat down and felt that she was too exhausted to eat anything. This was accompanied by wheezing, she states that she has been wheezing since past couple of days and also had productive cough with yellowish sputum. Denied any fever or chills, no sick contacts at home, no history of lung or leg clots. She stated that she sleeps on her chair, and for bed she uses a big pillow on the back to help her breathe at night. 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 Nur as her hotel staff member. Her last follow-up was 3 months ago when she was told that she was doing well. Patient stated that for her COPD she follows up with Dr. Maharaj at [facility]. Patient lives alone, and is independent in her daily activities, is compliant with her medication and takes them by herself. Patient reported that she uses walker to move around, no recent falls. Allergies: Coded Allergies: NO KNOWN ALLERGIES (10/06/14) Pertinent Lab Results: Patient was noted to be anemic, HgB from 9.8-9.1 during the hospital course. BUN and creatinine were also elevated, with an estimated GFR of 30-35 during her stay. Chest X-ray showed: Radiographic findings most consistent with CHF. Follow-up examination recommended status post treatment to ensure resolution. Duplex Venous US, Lower Extremities showed: No evidence of deep venous thrombosis involving the lower extremity. No Bravo's cyst. Echocardiogram showed: Normal size left ventricle. Moderate concentric left ventricular hypertrophy. Normal left ventricular ejection fraction visually estimated at > 55%. Abnormal relaxation filling pattern of the left ventricle for age (stage 1 diastolic dysfunction). Mild left atrial dilatation. Trace mitral regurgitation. Disposition Summary Disposition Principal Diagnosis: Acute exacerbation of CHF Additional Diagnosis: Hypertensive urgency, CKD stage III, Diabetes mellitus Discharge Disposition: home or self care Discharge Instructions General Discharge Information Code Status: Full Code Patient's Diet: Heart healthy diet Patient's Activity: As tolerated Follow-Up Instructions/Appts: Patient instructed to follow up with her primary care doctor and hotel staff member as an outpatient about this hospital admission. Medications at Discharge Discharge Medications: Continue taking these medications: Gabapentin (Neurontin) 300 MG CAPSULE 1 Capsule ORAL THREE TIMES DAILY Comments: Last Taken: 09/08/17 Time: 1 PM Furosemide (Furosemide) 40 MG TABLET 1 Tablet ORAL DAILY Comments: RECIEVED IV LASIX WHILE IN HOSPITAL TWICE A DAY LAST DOSE 20MG IV AT 8:30 AM 09/08 Pantoprazole Sodium (Protonix) 40 MG TABLET.DR 1 Tablet ORAL DAILY Comments: RECIEVED PRILOSEC WHILE AT HOSPITAL Last Taken: 09/08/17 Time: 8:30 AM Clonidine (Catapres) 0.2 MG TABLET 1 Tablet ORAL DAILY Comments: Last Taken: 09/08/17 Time: 8:30 AM Carvedilol (Coreg) 6.25 MG TABLET 1 Tablet ORAL TWICE DAILY Comments: Last Taken: 09/08/17 Time: 8:30 AM Loratadine (Claritin) 10 MG TABLET 1 Tablet ORAL DAILY Comments: Last Taken: 09/08/17 Time: 8:30 AM Montelukast Sodium (Singulair) 10 MG TABLET 1 Tablet ORAL DAILY Comments: Last Taken: 09/08/17 Time: 8:30 AM Glimepiride (Amaryl) 4 MG TABLET 1 Tablet ORAL DAILY Comments: DID NOT RECIEVE IN HOSPITAL Escitalopram Oxalate (Lexapro) 10 MG TABLET 1.5 Tablet ORAL AT BEDTIME Comments: Last Taken: 09/07/17 Time: 9 PM Acetaminophen (Tylenol Extra Strength) 500 MG TABLET 1-2 Tablet ORAL 4 TIMES A DAY as needed for Leg Pain Qty = 30 Comments: NOT GIVEN THIS ADMISSION Diclofenac Sodium (Voltaren) 1 % GEL..GRAM. 1 Gram On the skin 4 TIMES A DAY Qty = 1 Instructions: apply to your knees Comments: Last Taken: 09/08/17 Time: 1 PM Tramadol HCl (Tramadol HCl) 50 MG TABLET 1-2 Tablet ORAL Every night as needed as needed for PAIN Comments: DID NOT RECIEVE IN HOSPITAL Spironolactone (Aldactone) 50 MG TABLET 1 Tablet ORAL DAILY Qty = 30 Comments: Last Taken: 09/08/17 Time: 8:30 AM Ferrous Sulfate (Ferrous Sulfate) 325 MG (65 MG IRON) TABLET 1 Tablet ORAL TWICE DAILY Comments: DID NOT RECIEVE IN HOSPITAL The following medications have been changed: Old: Losartan Potassium (Losartan Potassium) 50 MG TABLET 1 Tablet ORAL DAILY Qty = 30 New: Losartan Potassium (Losartan Potassium) 100 MG TABLET 1 Tablet ORAL DAILY Qty = 30 Comments: Last Taken: 09/08/17 Time: 8:30 AM Copies To: Edis Barone APRN; Valdemar BOWMAN,Marshall
== END 2017-09-08 15:20 | DRG 291 ==
LOC: ERH 10:18 → 1NO 14:28 → ERHI 14:28 → ENRESERV 17:41 → ENTRNSPT 19:13 → EDTRNSPTSTS 19:17 → 1NO 19:33 → CMPTRNSPT 19:35 → 1NO 09-07 11:16 → ENPENDDIS 09-08 13:40 → 1NO 09-08 15:20
PROVIDERS: Internal Medicine; Student in an Organized Health Care Education/Training Program
DX: I13.0 Hypertensive heart and chronic kidney disease with heart failure and stage 1 through stage 4 chronic kidney disease, or unspecified chronic kidney disease (principal); I50.33 Acute on chronic diastolic (congestive) heart failure; J96.01 Acute respiratory failure with hypoxia; I24.8 Other forms of acute ischemic heart disease; E11.42 Type 2 diabetes mellitus with diabetic polyneuropathy; N18.3 Chronic kidney disease, stage 3 (moderate); E11.319 Type 2 diabetes mellitus with unspecified diabetic retinopathy without macular edema; F32.9 Major depressive disorder, single episode, unspecified; I16.0 Hypertensive urgency; D64.9 Anemia, unspecified
CPT/HCPCS: 1NSP; 36415; 71046; 82436; 93005; 93010; 93306; 96374; J0360; J0456; J1644; J1940; J3490

== ENCOUNTER 2017-09-21 00:36 | Inpatient (IN) | payer OTHER, MEDICARE ==
[~2017-09-21] VITALS: Ht 180.3 cm; Wt 146.1 kg
[~2017-09-21 00:36] MED LIST changes: +ALDACTONE50 M1 PO; +FERROUS SULFAT325 M3 PO; +LOSARTAN POTAS100 M1 PO; +TRAMADOL HCL50 M1 PO
--- NOTE | 2017-09-21 01:31 | RADIOLOGY REPORT ---
EXAMINATION: XR PORTABLE CHEST CLINICAL INFORMATION: Shortness of breath. COMPARISON: 09/06/2017 TECHNIQUE: Portable frontal view of the chest was obtained. FINDINGS: Cardiac leads overlie the chest. The lungs are well expanded. Diffuse bilateral airspace opacities, worse when compared to the prior study. No pneumothorax. No significant pleural effusion. The cardiomediastinal silhouette remains prominent, with a calcified aorta. IMPRESSION: Diffuse bilateral airspace opacities which are worse when compared to the prior study. Findings could represent diffuse alveolar edema, ARDS, or multifocal pneumonia.
--- NOTE | 2017-09-21 02:35 | History & Physical ---
Jeffrey Lazo 09/21/17 0216: General Information and HPI MD Statement: I have seen and personally examined DWAYNE COX and documented this H&P. The patient is a 67 year old F who presented with a patient stated chief complaint of Dyspnea. Source of Information: old records, EMS History of Present Illness: Patient is a 67 year old female with past medical history of heart failure with preserved ejection fraction, DM, HTN, HLD, CKD stage IIIB, who was brought to the ED by ambulance. Patient was found to be unresponsive with respirations assisted by BVM. Per EMS, patient called 911 for shortness of breath and epigastric pain. Patient at that time stated needs to cough something up and noted pink sputum. Placed on CPAP on seen and went unresponsive after 2 minutes requiring BVM respirations. Patient trialed on BiPap in the ER and conitnued to have saturations ranging 85%-89% on 100% O2. She was subsequently intubated. Patient given IV lasix, solumederol and ativan in the ED. Patient recently admitted for CHF exacerbation and discharged on 09/05/17. Son, Dominic Lanza contacted for further information. Claimed he is unsure of full history. States earlier today at 1130PM she had an argument with nephew who son claims is a major stressor to her health. He states she has a history of anxiety, hyperventilatioin and this may have off increased her blood pressure. Denies any history of suicidal ideation. Reported mother bleeding heavy through period recently. PCP: Edis Barone APRN Manager Linux: Dr. Nur COPD: Dr. Nicko Messer Allergies/Medications Allergies: Coded Allergies: No Known Allergies (09/21/17) Home Med list Acetaminophen (Tylenol Extra Strength) 500 MG TABLET 1-2 TAB PO 4 TIMES/DAY PRN Leg Pain Carvedilol (Coreg) 6.25 MG TABLET 1 TAB PO BID HTN (Reported) Clonidine (Catapres) 0.2 MG TABLET 1 TAB PO DAILY HTN (Reported) Diclofenac Sodium (Voltaren) 1 % GEL..GRAM. 1 GM TOP 4 TIMES/DAY JOINT PAIN apply to your knees Escitalopram Oxalate (Lexapro) 10 MG TABLET 1.5 TAB PO AT BEDTIME depression (Reported) Ferrous Sulfate 325 MG (65 MG IRON) TABLET 1 TAB PO BID IRON, VITAMIN ( Reported) Furosemide 40 MG TABLET 1 TAB PO DAILY heart (Reported) Gabapentin (Neurontin) 300 MG CAPSULE 1 CAP PO TID NEUROPATHY (Reported) Glimepiride (Amaryl) 4 MG TABLET 1 TAB PO DAILY DIABETES (Reported) Loratadine (Claritin) 10 MG TABLET 1 TAB PO DAILY ALLERGIES (Reported) Losartan Potassium 100 MG TABLET 1 TAB PO DAILY blood pressure Montelukast Sodium (Singulair) 10 MG TABLET 1 TAB PO DAILY SOB (Reported) Pantoprazole Sodium (Protonix) 40 MG TABLET.DR 1 TAB PO DAILY GI (Reported) Spironolactone (Aldactone) 50 MG TABLET 1 TAB PO DAILY herat (Reported) Tramadol HCl 50 MG TABLET 1-2 TAB PO QPMP PRN PAIN (Reported) Past History Travel History Traveled to [place] past 21 day No Medical History Neurological: peripheral neuropathy EENT: allergies, diabetic retinopathy Cardiovascular: CHF, hypertension, hyperlipidemia Respiratory: bronchitis, COPD Gastrointestinal: GERD, appendicitis ventral hernia Hepatic: NONE Renal: abnormal kidney function Musculoskeletal: sciatica, arthritis Psychiatric: depression Endocrine: diabetes Blood Disorders: anemia Cancer(s): NONE PARTY HOST/Reproductive: NONE History of MRSA: No History of VRE: No History of CDIFF: No Surgical History Surgical History: appendectomy, hernia repair-ventral, cyst removal from breast exploratory laparotomy Past Family/Social History Family History Relations & Conditions if any SON Hypertension SISTER, , Age 60+; Cause: Heart disease. FH: CHF (congestive heart failure) FH: diabetes mellitus, Onset: 60+. FH: myocardial infarction BROTHER FH: diabetes mellitus GRANDFATHER FH: diabetes mellitus Psychosocial History Who Do You Live With? self Services at Home: Home Health Aide Primary Language: Welsh Functional Ability ADLs Independent: dressing, eating, toileting, bathing. Ambulation: cane, walker, 2/2 neuropathy IADLs Independent: finances, food prep, telephone, transportation, medication admin. Needs Assist: shopping, housework. Review of Systems Review of Systems Constitutional: Denies: see HPI. Exam & Diagnostic Data Last 24 Hrs of Vital Signs/I&O Vital Signs Date Time Temp Pulse Resp B/P B/P Pulse O2 O2 Flow FiO2 Mean Ox Delivery Rate 09/21 0337 48 24 109/56 100 Ventilator 09/21 0320 48 24 107/53 99 Ventilator 09/21 0315 100 08/09 0257 57 24 100/50 91 Ventilator / 0250 48 24 62/40 99 Ventilator 100% 09/21 0240 49 24 82/45 97 Ventilator / 0215 56 24 101/52 96 Ventilator / 0207 100 / 0205 60 24 118/58 89 Ventilator / 0154 100 / 0152 63 24 123/59 88 Ventilator / 0125 108 30 200/94 85 BIPAP 09/21 0115 100 30 215/90 84 BIPAP 09/21 0056 107 88 09/21 0054 97.5 106 24 180/107 88 BIPAP 100% 09/21 0042 114 26 158/88 98 100% Intake & Output 09/21 0800 09/21 0000 09/20 1600 Intake Total 0 Output Total Balance 0 Intake, Oral 0 Patient 300 lb Weight Physical Exam General Appearance Intubated / Sedated Skin No Rashes, No Breakdown HEENT PERRLA, intubated/og tube Neck Supple, No JVD, No thryomegaly Cardiovascular Normal S1, Normal S2, tachycardia Lungs crackles in lung bases bilatearlly; on ventilator Abdomen Normal Bowel Sounds, Soft, No Tenderness Neurological Sedated/Intubated Extremities No Clubbing, No Cyanosis Assessment/Plan Assessment: Patient is a 67 year old female with past medical history of HFpEF (55%), DM, HTN, HLD, CKD stage IIIB, who was brought by ambulance unresponsive with respirations assisted by BVM. Per EMS, patient called 911 for shortness of breath and epigastric pain. Patient at that time stated needs to cough something up and noted pink sputum. Placed on CPAP on seen and went unresponsive after 2 minutes requiring BVM respirations. 1 sublingual nitro adminstered. Patient recently admitted for CHF exacerbation and discharged on 09/05/17. Patient was placed on BiPAP by respiratory with O2 sats 85% with 100% O2 but did not tolerate for more than 15 minutes. She was subsequently intubated. CXR positive for bilateral airspace opacities. Troponins significantly elevated higher than previous admissions (315). EKG changes demonstrated ST elevations in V1-V4, depression in V5-V6. Cardiology paged. Warrants ICU admission. Repeat EKG demonstrates resolving ST changes. EMERGENCY DEPARTMENT: 0005: BiPAP 86% O2 with 100% and 6 EPAP Lasix 40mg IV x 1 and Solumederol 125 IV x 1 145: Succinylcholine + Etomidate; Intubated AB.// on Ventilator (A/C): PEEP 15, TV: 600, Rate 24, Peak flow 80 VITALS: 97.5, 114, 26, 158/88 EKG: ST elevation V1V4, and ST depression V5V6, heart rate 104 normal sinus rhythm. Repeat EKG: resolving ST changes Troponin: 3.15 CBC: WBC: 14.1, Hgb: 9.9, Hct: 30.9, Plt: 323 Chemistry: NA 136, K 6.5, 102, 25, BUN 48, Cr 1.9, EGFR 27, Glucose 375, Lactic Acid 3.0 ProBNP: 5330 CXR: Diffuse bilateral airspace opacities which are worse when compared to the prior study. Findings could represent diffuse alveolar edema, ARDS, or multifocal pneumonia. Repeat CXR confirms ET tube terminating 6cm above hui. ECHO 08/2017: Normal left ventricular ejection fraction visually estimated at >55%. No obvious regional wall motion abnormalities. Abnormal relaxation filling pattern of the left ventricle for age (stage 1 diastolic dysfunction). PROBLEM LIST: 1. ST Elevation AZ/elevated troponin 2. CHF Exacerbation/Acute hypoxic respiratory failure 3. Hypertension 4. CKD IIIB 5. Diabetes Mellitus PLAN: ST ELEVATION AZ/ELEVATE TROPONIN Elevated troponin of 3.15. Initial EKG demonstrating ST segment elevations. Repeat EKG resolving. Patient hyperkalemic at 6.5 on admission. * IV Heparin drip; ASA/Plavix through OG tube * Serial EKG/Troponins * Cardiology ([facility]) contacted given elevated troponin and ST elevation on EKG * IV nitro drip * Carvedilol * Dextrose/Insulin/kayexalate to correct hyperkalemia; Calcium gluconate 1gm to stabalize heart * Monitor in ICU CHF EXACERBATION/ACUTE HYPOXIC RESPIRATORY FAILURE Recent admission for CHF exacerbation of diastolic dysfunction (Echo 55%) with respiratory failure likely due to pulmonary edema. Initial ABG 7.33// on Ventilator (A/C): PEEP 15, TV: 600, Rate 24, Peak flow 80. * Admit to ICU for further monitoring of respiratory status * Ventilator TV 600, Peep 15, Peak flow 80, Rate 24 * Serial Troponin/EKG * Repeat ABG * IV diuresis lasix 40mg; PO medications through OG tube (ASA/Plavix loading dose) * Strict Ins/Outs; daily weights * Vitals Q Shift HYPERTENSION * Anti-hypertensives originally held given patients hypotensive nature on admission * Medications to be administered through OG tube * Monitor BPs/vitals q shift CKD STAGE III Patient has a history of CKD stage III. Creatinine on previous admission 1.6. Currently 1.9. * Monitor BEP/BUN/Cr Code Stauts: FC as per previous admission (no living will in chart) DVT ppx: IV heparin As Ranked By This Provider Problem List: 1. Diabetes 2. CKD (chronic kidney disease) stage 3, GFR 30-59 ml/min Core Measures/Misc (10/30) Acute Coronary Syndrome ACS Diagnosis: No Congestive Heart Failure Congestive Heart Failure Diagnosis Yes Last Known EF % 5 Cerebrovascular Accident CVA/TIA Diagnosis: No VTE (View Protocol) VTE Risk Factors Age>40 No Mechanical VTE Prophylaxis d/t N/A MechProphylax Ordered No VTE Pharm Prophylaxis d/t NA PharmProphylax ordered Sepsis (View protocol) Sepsis Present: No If YES complete Sepsis Event Note If YES complete Sepsis Event Note Janine Dee 09/21/17 0359: Core Measures/Misc (10/30) Sepsis (View protocol) If YES complete Sepsis Event Note If YES complete Sepsis Event Note Resident Review Statement Resident Statement: examined this patient, discussed with international exchange coordinator, discussed with family Other Findings: Patient is a 67-year-old female with past medical history significant of HFpEF, diabetes, hypertension, hyperlipidemia, CKD stage IIIb, was brought to ER by ambulance after the patient called for not being able to breathe. Patient also reported of epigastric pain to the EMS staff, coughed to bring pink/frothy sputum. She was placed on CPAP at that time but patient went unresponsive and was started on bag valve mask ventilation. Patient also got 1 dose of nitroglycerin by EMS. In ER, patient was initially placed on BiPAP saturating to 85% on 100% O2. Her lung sounds were diminished bilaterally and she was intubated. I called the son, Dominic (also the POA), [phone], who lives in [place]. He stated that he does not know what happened but earlier around 11: 30 PM, patient had to work with fight with the family member over personal issues. He was only informed by EMS at the time the ambulance came to take her from home. Per her old records, she is non-smoker, does not use any oxygen at home, follows up with Dr. Starkey as a quality assurance lead. For her COPD she follows up with Dr. Maharaj at [facility]. She lives alone and was independent in her daily activities and compliant with her medications. Patient was examined in the ER, she was sedated and intubated, pupils are equal and reactive, lung auscultated from anterior chest were clear, heart rate S1 and S2 normal sinus rhythm, abdomen soft, no bilateral pitting edema. Labs and vitals as above Her chest x-ray done in the ER was significant for Diffuse bilateral airspace opacities which are worse when compared to the prior study. Findings could represent diffuse alveolar edema, ARDS, or multifocal pneumonia. Repeat chest x-ray post intubation pending. EKG shows ST elevation V1V4, and ST depression V5V6, heart rate 104 normal sinus rhythm. Assessment and plan Patient will be admitted to ICU for hypoxic respiratory failure and unresponsiveness. Chest x-ray is consistent with pulmonary edema, which could be due to her CHF. She will need cardiology consult, possibly repeat echo, serial troponins and EKGs, repeat ABG in the morning, patient got 40 IV Lasix in ER, can give 20 IV in a.m. monitor intake output. Reevaluate patient in a.m., if she is awake and alert and can consider weaning trial. Patient got a loading dose of Solu-Medrol in ER, will continue 40 IV every 8 for possible underlying COPD exacerbation. Second EKG and elevated troponins on labs is consistent with STEMI. Patient is started on nitroglycerine and heprin drip, loaded with 300 plavix and 325 aspirin through OG tube. Once nitro drip is off, she can be started on her home antihypertensives through OG tube. Hyperkalemia is treated with dextrose, insulin and calcium gluconate. DVT prophylaxis heprin drip. Patient is full code per previous admission, no living will in chart. Code status confirmed with POA (son, Sharon). Doroteo Marrero MD 09/21/17 0608: Core Measures/Misc (10/30) Sepsis (View protocol) If YES complete Sepsis Event Note If YES complete Sepsis Event Note Attending MD Review Statement Attending Statement Attending MD Statement: examined this patient, discuss w/resident/PA/WIND TURBINE MECHANICAL ENGINEER, agreed w/resident/PA/WIND TURBINE MECHANICAL ENGINEER, discussed with family (patient's son at bedside) Attending Assessment/Plan: Patient is seen and examined independently by me. Care plan discussed with medical examiner and resident. I agree with the physical exam findings and plan of care as outlined above with the following changes and additions. 67 yo F with history of CHF EF 55%, HTN, HLD, DM, CKD, recently admitted for acute exacerbation of CHF (09/06-09/09/17). Patient presented with SOB and lethargy/unresponsiveness. According to EMS, they are called for patient with acute onset of SOB. No documentation of chest pain but she has epigastric pain and pink frothy sputum. She got SL nitro x1 and placed on CPAP. However she became unresponsive. In the ED, patient was changed to Bipap but eventually got intubated due to hypoxic respiratory failure with unresponsiveness. As per his son (who does not live with her), patient is living with his nephew. She had a verbal altercation with the nephew today and she became agitated, anxious and eventually with worsening of SOB. When seen patient, she is sedated and intubated. Heart: regular, S1S2. Lungs with bibasal crackles. WBC 14.1. Lactic acid 3.0. BUN/Cr 48/1.9. K 6.5. Troponin 3.15 EKG#1 sinus tachy at 104 with old inverted T in lateral leads and [address] elevation in anterior leads. EKG#2 NSR at [address] elevation in anterior leads. Urine tox screen negative. UA did not suggestive of UTI. Post intubation ABG 7.33/35/74/18/93%. CXR prior to intubation shows worsening of bilateral opacities. Post intubation shows ET tube 6 cm above hui and no significant changes in the opacities. Patient got Lasix 40 mg IV, solumedrol 125 mg IV, ceftaz 1 g IV and doxy 100 mg IV in the ED. Patient is admitted to ICU for acute STEMI with resolving ST elevation on repeat EKG, acute CHF, BRENDA with hyperkalemia. Cardiac monitoring. Check serial troponin/EKG. Start ASA, Plavix, IV heparin drip, IV nitro drip and lipitor. Continue Coreg as long as HR tolerates. Increase Lasix 40 mg IV BID. Cardiology consult. Adjust ET tube. On mechanical ventilation and follow ABG. Consider Pulmonary consult. Patient got Ca 1 g IV, regular insulin 10 units IV/1 amp D50 and Kayexalate 60 g for hyperkalemia. Follow chem. Monitor urine output. Hold COLT/ARB/K sparing agent. I have discussed with patient's son (at bedside). Doroteo Marrero MD FACP
--- NOTE | 2017-09-21 02:45 | ED DYSPNEA/ASTHMA COMPLAINT ---
History of Present Illness General Chief Complaint: Dyspnea (COPD, CHF, Other) Stated Complaint: "BIBA PER EMS DIFF.BREATHING" Source: patient, family, old records Exam Limitations: no limitations Vital Signs & Intake/Output Vital Signs & Intake/Output Vital Signs Date Time Temp Pulse Resp B/P B/P Pulse O2 O2 Flow FiO2 Mean Ox Delivery Rate 09/21 0337 48 24 109/56 100 Ventilator / 0320 48 24 107/53 99 Ventilator 09/21 0315 100 09/21 0257 57 24 100/50 91 Ventilator / 0250 48 24 62/40 99 Ventilator 100% 09/21 0240 49 24 82/45 97 Ventilator / 0215 56 24 101/52 96 Ventilator / 0207 100 09/21 0205 60 24 118/58 89 Ventilator / 0154 100 09/21 0152 63 24 123/59 88 Ventilator / 0125 108 30 200/94 85 BIPAP / 0115 100 30 215/90 84 BIPAP 09/21 0056 107 88 09/21 0054 97.5 106 24 180/107 88 BIPAP 100% 09/21 0042 114 26 158/88 98 100% Allergies Coded Allergies: No Known Allergies (09/21/17) Reconcile Medications Acetaminophen (Tylenol Extra Strength) 500 MG TABLET 1-2 TAB PO 4 TIMES/DAY PRN Leg Pain Carvedilol (Coreg) 6.25 MG TABLET 1 TAB PO BID HTN (Reported) Clonidine (Catapres) 0.2 MG TABLET 1 TAB PO DAILY HTN (Reported) Diclofenac Sodium (Voltaren) 1 % GEL..GRAM. 1 GM TOP 4 TIMES/DAY JOINT PAIN apply to your knees Escitalopram Oxalate (Lexapro) 10 MG TABLET 1.5 TAB PO AT BEDTIME depression (Reported) Ferrous Sulfate 325 MG (65 MG IRON) TABLET 1 TAB PO BID IRON, VITAMIN ( Reported) Furosemide 40 MG TABLET 1 TAB PO DAILY heart (Reported) Gabapentin (Neurontin) 300 MG CAPSULE 1 CAP PO TID NEUROPATHY (Reported) Glimepiride (Amaryl) 4 MG TABLET 1 TAB PO DAILY DIABETES (Reported) Loratadine (Claritin) 10 MG TABLET 1 TAB PO DAILY ALLERGIES (Reported) Losartan Potassium 100 MG TABLET 1 TAB PO DAILY blood pressure Montelukast Sodium (Singulair) 10 MG TABLET 1 TAB PO DAILY SOB (Reported) Pantoprazole Sodium (Protonix) 40 MG TABLET.DR 1 TAB PO DAILY GI (Reported) Spironolactone (Aldactone) 50 MG TABLET 1 TAB PO DAILY herat (Reported) Tramadol HCl 50 MG TABLET 1-2 TAB PO QPMP PRN PAIN (Reported) Triage Note: PT BIBA - ARRIVES UNRESPONSIVE WITH RESPIRATIONS ASSISTED BY BVM. PER EMS PT CALLD [phone] FOR SOB AND EPIGASTRIC PAIN. MEDIC REPORTS THAT PT STATED "I NEED TO COUGH SOMETHING UP" MEDIC NOTED PINK/FROTHY SPUTUM, PLACED PT ON CPAP, AFTER 2 MINUTES ON CPAP PT WENT UNRESPONSIVE REQUIRING BVM RESPIRATIONS. EMS ADMINISTERED 1SL NITRO. PRIOR TO UNRESPONSIVENESS PT REPORTED RECENT ADMISSION FOR COPD EXACERBATION. PIV ESTABLISHED TO ON ARRIVAL. MD TO BEDSIDE, PLACED ON BiPAP BY RESPIRATORY O2 SAT 85% WITH 100% O2. LUNG SOUNDS DIMINISHED WITH CRACKLES BILATERALLY. Triage Nurses Notes Reviewed? yes Onset: Just prior to arrival Duration: minute(s):, constant, continues in ED Timing: recent history Severity: severe Activities at Onset: emotional stress, rest Prior Episodes/Possible Cause: occasional episodes Modifying Factors: Worsens With: movement. Associated Symptoms: weakness LMP (ages 10-50): post menopausal : No Patient currently breastfeeds: No HPI: Prior to admission after I get with her nephew complains of shortness of breath. She was found to be hypoxic started on CPAP she could not tolerate the mask so [id number] was started. The family reports she had no complaints of fever chills nausea vomiting diarrhea abdominal pain chest pain headache dysuria rash bleeding. Past History Travel History Traveled to [place] past 21 day No Medical History Any Pertinent Medical History? 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 FH: CHF (congestive heart failure) FH: diabetes mellitus, Onset: 60+. FH: myocardial infarction BROTHER FH: diabetes mellitus GRANDFATHER FH: diabetes mellitus Hx Contributory? No Review of Systems Review of Systems Constitutional: Reports: no symptoms, see HPI. EENTM: Reports: no symptoms. Respiratory: Reports: see HPI, short of breath. Cardiovascular: Reports: no symptoms. GI: Reports: no symptoms. Genitourinary: Reports: no symptoms. Musculoskeletal: Reports: no symptoms. Skin: Reports: no symptoms. Neurological/Psychological: Reports: no symptoms. Hematologic/Endocrine: Reports: no symptoms. Immunologic/Allergic: Reports: no symptoms. All Other Systems: Reviewed and Negative Physical Exam Physical Exam General Appearance: well developed/nourished, alert, lethargic, severe distress, obese Head: atraumatic, normal appearance Eyes: Bilateral: normal appearance, PERRL, EOMI. 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 Yes CVA/TIA Diagnosis No Sepsis Present: No Sepsis Focused Exam Completed? No Progress Differential Diagnosis: bronchitis, CHF, COPD, pneumonia Plan of Care: Orders Procedure Date/time Status TROPONIN LEVEL 09/21 899 Active EKG 09/21 899 Active Add-on Test (ER Only) 09/21 0337 Active OGT 09/21 0320 Active VENTILATOR PARAMETERS 09/21 0314 Active Restraint- Medical 09/21 0311 Active XRY-PORTABLE CHEST XRAY 09/21 0309 Active URINE DRUGS OF ABUSE 09/21 0259 Complete URINALYSIS 09/21 0242 Active Patient Data 09/21 0216 Active VENTILATOR PARAMETERS 09/21 0209 Complete Intake & Output 09/21 020 Active VENTILATOR PARAMETERS 09/21 0153 Complete Admit to inpatient 09/21 148 Active Miles, Insertion/Removal/Asses 09/21 148 Active CULTURE,URINE 09/21 148 Active BLOOD CULTURE 09/21 148 Active BIPAP 09/21 005 Complete ARTERIAL BLOOD GAS (GEN) 09/22 39 Complete TROPONIN LEVEL 09/22 39 Active MAGNESIUM 09/22 39 Active COMPREHENSIVE METABOLIC PANEL 09/22 39 Active CBC WITHOUT DIFFERENTIAL 09/22 39 Active B-TYPE NATRIURETIC PEP (BNP) 09/22 39 Active EKG 09/21 38 Active Current Medications Sig/Laure Start time Last Medication Dose Stop Time Status Admin Doxycycline Hyclate 100 MG ONCE ONE 09/21 0315 AC (Vibramycin) 09/21 042 Sodium Chloride 100 ML (Normal Saline 0.9%) Azithromycin 500 MG ONCE ONE 09/21 020 CAN (Zithromax) 09/21 025 Sodium Chloride 250 ML (Normal Saline 0.9%) Laboratory Tests 09/21/17 0305: Sodium Pending, Potassium Pending, Chloride Pending, Carbon Dioxide Pending, Anion Gap Pending, BUN Pending, Creatinine Pending, BUN/Creatinine Ratio Pending , Glucose Pending, Calcium Pending, Magnesium Pending, Total Bilirubin Pending, AST Pending, ALT Pending, Alkaline Phosphatase Pending, Troponin I Pending, Pro- B-Natriuretic Pept Pending, Total Protein Pending, Albumin Pending, Globulin Pending, Albumin/Globulin Ratio Pending, CBC w Diff Pending, WBC Pending, RBC Pending, Hgb Pending, Hct Pending, MCV Pending, MCH Pending, MCHC Pending, RDW Pending, Plt Count Pending, MPV Pending, Gran % Pending, Lymphocytes % Pending, Monocytes % Pending, Eosinophils % Pending, Basophils % Pending, Absolute Granulocytes Pending, Absolute Lymphocytes Pending, Absolute Monocytes Pending, Absolute Eosinophils Pending, Absolute Basophils Pending 09/21/17 0250: Urine Opiates Screen < 100, Methadone Screen 41, Barbiturate Screen < 60, Ur Phencyclidine Scrn < 6.00, Amphetamines Screen < 100, U Benzodiazepines Scrn < 85, Urine Cocaine Screen < 50, Urine Cannabis Screen < 5.00, Urine Color Pending , Urine Clarity Pending, Urine pH Pending, Ur Specific [place] Pending, Urine Protein Pending, Urine Ketones Pending, Urine Nitrite Pending, Urine Bilirubin Pending, Urine Urobilinogen Pending, Ur Leukocyte Esterase Pending, Ur Microscopic SEDIMENT EXAMINED, Urine RBC Pending, Urine Hemoglobin Pending, Urine Glucose Pending 09/21/17 0225: pH 7.33 L, pCO2 35, pO2 74 L, HCO3 18 L, ABG O2 Sat (Measured) 93.0 L, P-50 (Temp Corrected) N, Carboxyhemoglobin 0.2 L, O2 Concentration % 100, Respiration Rate 24, O2 Delivery Method VENT, Vent Mode A/C, Expiratory Pressure 20, Tidal Volume 600, Phlebotomy Draw Site RIGHT BRACHIAL Microbiology 09/21 0305 BLOOD: Blood Culture - RECD 09/21 0250 URINE ROUT: Urine Culture - RECD 09/21 0242 URINE ROUT: Urine Culture - CAN Cancelled: DUPLICATE ORDER 09/21 014 BLOOD: Blood Culture - CAN Cancelled: Cancelled via OE: DIFF STICK - FEM STICK Diagnostic Imaging: Viewed by Me: Radiology Read. Discussed w/RAD: Radiology Read. CXR Impression: Diffuse bilateral airspace opacities which are worse when compared to the prior study. Findings could represent diffuse alveolar edema, ARDS, or multifocal pneumonia. Initial ED EKG: normal intervals, normal QRS complex, LVH, nonspecific ST T wave chg Prior EKG: changed Rhythm Strip: sinus tachycardia Departure Departure Disposition: STILL A PATIENT Condition: Critical Clinical Impression Primary Impression: Respiratory failure requiring intubation Secondary Impressions: CHF (congestive heart failure), Pneumonia Referrals: Edis Barone APRN (PCP/Family) Departure Forms: Customer Survey General Discharge Information Admission Note Spoke With: Doroteo Marrero MD Documentation of Exam: Documentation of any treatments & extenuating circumstances including Concerns Regarding Discharge (functional status, medication knowledge or non-compliance, living conditions, etc.) that warrant an admission rather than observation: Mechanical ventilation IV diuresis IV antibiotics follow-up cultures cardiology evaluation pulmonary evaluation medication adjustment continuing care discharge planning Procedures Intubation Intubation Method: orotracheal Tube Size (cm): 7.5 Medications: succinylcholine, etomidate Breath Sounds After Intubation: equal Intubation Complications: O2 saturation decreased Post Intubation Xray? Yes Critical Care Note Critical Care Note Critical Care Time: 30-74 min (50)
[2017-09-21 03:26] LABS: ABSOLUTE BASOPHIL COUNT 0 /CUMM (0.0-0.2); ABSOLUTE EOSINOPHIL COUNT 0 /CUMM (0.0-0.7); ABSOLUTE LYMPH COUNT 0.8 /CUMM (1.2-3.4); ABSOLUTE MONOCYTE COUNT 0.3 /CUMM (0.10-0.60); BASOPHIL % 0.3 % (0.0-2.0); EOSINOPHIL % 0.1 % (0-5); HEMATOCRIT 30.9 % (37-47); MEAN CORPUSCULAR HGB 28.5 PG (27.0-31.0); MEAN PLATELET VOLUME 9.8 FL (7.4-10.4); PLATELET COUNT 323 /CUMM (130-400); RBC DISTRIBUTION WIDTH 17.9 % (11.5-14.5); RED BLOOD CELL CT 3.47 /CUMM (4.20-5.40); WHITE BLOOD CELL COUNT 14.1 /CUMM (4.8-10.8)
[2017-09-21 03:30] LABS: GRANULOCYTE % 92.1 % (42.2-75.2)
--- NOTE | 2017-09-21 03:47 | RADIOLOGY REPORT ---
EXAMINATION: XR PORTABLE CHEST CLINICAL INFORMATION: Endotracheal tube placement COMPARISON: 09/21/2017 TECHNIQUE: Portable frontal view of the chest was obtained. FINDINGS: The endotracheal tube terminates approximately 6 cm by. Enteric tube extends distally on the study, with the tip not well visualized secondary to penetration of the film. The lungs are well expanded. No significant change in diffuse bilateral airspace opacities. No pneumothorax or pleural effusion. The cardiomediastinal silhouette is unchanged, with a calcified aorta. IMPRESSION: Endotracheal tube terminating approximately 6 cm above the hui. No significant change in diffuse bilateral airspace opacities.
--- NOTE | 2017-09-21 06:17 | CT SCAN REPORT ---
EXAMINATION: CT HEAD WITHOUT CONTRAST CLINICAL INFORMATION: Inability to breathe. Unresponsive. COMPARISON: None. TECHNIQUE: Contiguous axial imaging was performed from the skull base to vertex without intravenous contrast. DLP: 625 mGy-cm. FINDINGS: There is no evidence of acute intracranial hemorrhage or territorial infarction. No abnormal mass effect or midline shift is seen. Lopez to white matter differentiation is well preserved. No extra-axial fluid collections are identified. No hydrocephalus. No significant volume loss. There is no abnormal attenuation within the brain parenchyma. The osseous structures and soft tissues are normal. Near complete opacification of the sphenoid sinuses. The mastoid air cells and visualized portions of the paranasal sinuses are otherwise well aerated. IMPRESSION: No acute intracranial pathology. Near complete opacification of the sphenoid sinuses.
[2017-09-21 07:00] VITALS: BP 134/80
--- NOTE | 2017-09-21 07:19 | Cons- CRCU ---
General Information and HPI Consulting Request Date of Consult: 09/21/17 Requested By: Dr. Marrero Reason for Consult: Acute hypoxic respiratory failure due to flash pulmonary edema. ACS Source of Information: family, old records, ED note Exam Limitations: clinical condition History of Present Illness: 67 yo F with history of CHF EF 55%, HTN, HLD, DM, CKD, recently admitted for acute exacerbation of CHF (09/06-09/09/17). Patient presented with SOB and lethargy/unresponsiveness. According to EMS, they are called for patient with acute onset of SOB. No documentation of chest pain but she has epigastric pain and pink frothy sputum. She got SL nitro x1 and placed on CPAP. However she became unresponsive. In the ED, patient was changed to Bipap but eventually got intubated due to hypoxic respiratory failure with unresponsiveness. Allergies/Medications Allergies: Coded Allergies: No Known Allergies (09/21/17) Home Med List: Aspirin (Aspirin*) 81 MG TAB.CHEW 1 TAB PO DAILY heart [facility] Atorvastatin Calcium 80 MG TABLET 80 MG PO 1700 heart [facility] Carvedilol (Coreg) 6.25 MG TABLET 1 TAB PO BID HTN (Reported) Clonidine (Catapres) 0.2 MG TABLET 1 TAB PO DAILY HTN (Reported) Clopidogrel Bisulfate (Clopidogrel) 75 MG TABLET 1 TAB PO DAILY HEART HEALTH Escitalopram Oxalate (Lexapro) 10 MG TABLET 1.5 TAB PO AT BEDTIME depression (Reported) Ferrous Sulfate 325 MG (65 MG IRON) TABLET 1 TAB PO BID IRON, VITAMIN ( Reported) Furosemide 40 MG TABLET 1 TAB PO DAILY heart (Reported) Heparin (Heparin-1/2NS 25,000 Units/500) 25,000 UNIT/500 ML (50 UNIT/ML) IV.SOLN 12 PKG IV Q1 HEART HEALTH Loratadine (Claritin) 10 MG TABLET 1 TAB PO DAILY ALLERGIES (Reported) Lorazepam (Ativan) 2 MG/ML VIAL 2 MG IV ONCE PRN AGITATION ON VENTILATOR Losartan Potassium 100 MG TABLET 1 TAB PO DAILY blood pressure Nitroglycerin (Ntg 50 MG/500 Ml in D5w) 50 MG/500 ML (0.1 MG/ML) INFUS..BTL 3 MG IV Q1 blood pressure Pantoprazole Sodium (Protonix) 40 MG TABLET.DR 1 TAB PO DAILY GI (Reported) Spironolactone (Aldactone) 50 MG TABLET 1 TAB PO DAILY herat (Reported) Current Medications: Current Medications Sig/Laure Start time Last Medication Dose Route Stop Time Status Admin Albuterol Sulfate 3 ML ONCE ONE 09/21 0045 DC 09/21 INH 09/21 004 0055 Aspirin 325 MG ONCE ONE 09/21 444 DC 09/21 PO 09/21 445 0623 Atorvastatin Calcium 80 MG 1700 09/21 06 DCD PO Azithromycin 500 MG ONCE ONE 09/21 0200 CAN Sodium Chloride 250 ML IV 09/21 025 Calcium Gluconate 0 .STK-MED ONE 09/21 433 DC IV Calcium Gluconate 1 GM ONCE ONE 09/21 041 DC 09/21 Sodium Chloride 100 ML IV 09/21 0514 0454 Carvedilol 6.25 MG BID 09/21 599 DCD PO Ceftazidime 0 .STK-MED ONE 09/21 032 DC .ROUTE Ceftazidime 1,000 MG ONCE ONE 09/21 0200 DC 09/21 IV 09/21 020 0333 Clopidogrel Bisulfate 300 MG ONCE ONE 09/21 444 DC 09/21 PO 09/21 445 0623 Dextrose 0 .STK-MED ONE 09/21 433 DC IV Dextrose 25 GM ONCE ONE 09/21 0415 DC 09/21 IV 09/21 0416 0454 Doxycycline Hyclate 100 MG ONCE ONE 09/21 031 DC 09/21 Sodium Chloride 100 ML IV 09/22 419 0350 Etomidate 20 MG ONCE ONE 09/21 0200 DC 09/21 IV 09/21 0201 0126 Fentanyl Citrate 50 MCG Q6-PRN PRN 09/21 914 DCD 09/21 IV 1058 Furosemide 40 MG 7:30 AM, & 4:30 PM 09/21 0730 DCD 09/21 IV 0800 Furosemide 40 MG ONCE ONE 09/21 0100 DC 09/21 IV 09/21 0101 0045 Furosemide 0 .STK-MED ONE 09/21 0048 DC IV Heparin Sodium 25,000 UNIT Q24H 09/21 529 DCD 09/21 (Porcine) IV 0633 Sodium Chloride 500 ML Insulin Human Regular 0 Q6 09/21 1200 DCD SC Insulin Human Regular 10 UNITS ONCE ONE 09/21 0415 DC 09/21 IV 09/21 0416 0454 Lorazepam 0.5 MG Q6-PRN PRN 08/09 0915 DCD IV Lorazepam 2 MG ONE ONE 09/21 0545 DC 08/ IV 08/ 0546 0540 Lorazepam 0 .STK-MED ONE 09/21 0538 DC .ROUTE Lorazepam 2 MG ONE ONE 09/21 0415 DC 08/ IV / 0416 0403 Lorazepam 0 .STK-MED ONE 09/21 0403 DC .ROUTE Lorazepam 1 MG ONCE ONE 09/21 0200 DC 08/ IV / 0201 0141 Lorazepam 0 .STK-MED ONE 09/21 0142 DC .ROUTE Methylprednisolone 125 MG ONCE ONE 09/21 0100 DC 08/ IV / 0101 0045 Methylprednisolone 0 .STK-MED ONE 09/21 0048 DC .ROUTE Nitroglycerin 25 MG Q24H 09/21 0445 DCD 09/21 Dextrose/Water 250 ML IV 0613 Sodium Polystyrene 0 .STK-MED ONE 09/21 0434 DC Sulfonate .ROUTE Sodium Polystyrene 60 ML ONCE ONE 09/21 0415 DC Sulfonate VA 09/21 0416 Succinylcholine 150 MG ONCE ONE 09/21 0200 DC 08/ Chloride IV 08/ 0201 0127 Vecuronium Taylor 10 MG ONCE ONE 09/21 0315 DC 08/ IV 08/ 0316 0258 Vecuronium [place] 0 .STK-MED ONE 09/21 0257 DC IV Vecuronium Taylor 10 MG ONCE ONE 09/21 0200 DC 08/ IV 08/ 0201 0140 Review of Systems Review of Systems Constitutional: Reports: see HPI (Patient is intubated). 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 FH: CHF (congestive heart failure) FH: diabetes mellitus, Onset: 60+. FH: myocardial infarction BROTHER FH: diabetes mellitus GRANDFATHER FH: diabetes mellitus Psychosocial History Who Do You Live With? self Services at Home: Home Health Aide Primary Language: Afghan Functional Ability ADLs Independent: dressing, eating, toileting, bathing. Ambulation: cane, walker, 2/2 neuropathy IADLs Independent: finances, food prep, telephone, transportation, medication admin. Needs Assist: shopping, housework. Exam & Diagnostic Data Last 24 Hrs of Vital Signs/I&O Temperature 96.9, pulse 72, respiratory rate 24, blood pressure 134/60, oxygen saturation 100% on ventilator. Physical Exam General Appearance: well developed/nourished Head: atraumatic Neck: normal inspection Respiratory: Intubated Cardiovascular: regular rate/rhythm, edema Gastrointestinal: normal bowel sounds, soft Extremities: no edema Neurologic/Psych: intubated Last 48 Hrs of Labs/Martinez: WBC count 14.1, hemoglobin 9.9, hematocrit 30.9, platelet count 323, sodium 138, pressure 5.6, BUN 50, creatinine 1.9, GFR 27 Assessment/Plan CRCU Impression/Plan: 67 yo F with history of CHF EF 55%, HTN, HLD, DM, CKD, recently admitted for acute exacerbation of CHF (09/06-09/09/17). Patient presented with SOB and lethargy/unresponsiveness. According to EMS, they are called for patient with acute onset of SOB. No documentation of chest pain but she has epigastric pain and pink frothy sputum. She got SL nitro x1 and placed on CPAP. However she became unresponsive. In the ED, patient was changed to Bipap but eventually got intubated due to hypoxic respiratory failure with unresponsiveness. Patient was admitted to ICU for following problems. Acute hypoxic respiratory failure due to flash pulmonary edema: -Possibly due to acute congestive heart failure from active cardiac ischemia. -Patient is intubated and maintaining saturation 100%. PEEP 15, peak flow rate 80, tidal volume 600 and respiratory rate 24. -Fentanyl 50 g every 6 hourly when necessary for agitation and irritability -Ativan 0.5 mg every 6 hourly when necessary for agitation -Respiratory was patient was stable and this morning she was following point and was able to squeeze finger. -Patient is being [facility]. Acute coronary syndrome: -Patient has elevated troponin with nonspecific ST segment changes. -Serial EKGs and troponins. Her second troponin came back 93.40 -Weaning off nitroglycerin -Continue dual antiplatelet therapy through OGD tube. -Continue heparin drip -Patient is being transferred to [place] for cardiac cath. History of hypertension and hyperlipidemia: -Holding all antihypertensive medications. -Start her Lipitor. History of diabetes: -Accu-Cheks -Insulin NovoLog according to sliding scale. DVT prophylaxis: Mechanical and patient is already on a heparin drip CODE STATUS: Full code Consult Acknowledgment - Thank you for your consult request.
[2017-09-21 08:00] VITALS: BP 160/0
[2017-09-21 08:24] LABS: PT 13.4 SEC (9.4-12.5); PTT 30 SEC (25-37)
--- NOTE | 2017-09-21 09:30 | Discharge Summary ---
Visit Information Visit Dates Admission Date: 09/21/17 Discharge Date: 09/21/17 Hospital Course Course Attending Physician: Doroteo Marrero MD Primary Care Physician: Edis Barone APRN Consulting Request: Consulting Specialty: Cardiology Consulting Physician: Reason for Consult: myocardial infarction Hospital Course: Patient is a 67 year old female with past medical history of heart failure with preserved ejection fraction, DM, HTN, HLD, CKD stage IIIB, who was brought to the ED by ambulance. Patient was found to be unresponsive with respirations assisted by BVM. Per EMS, patient called 911 for shortness of breath and epigastric pain. Patient at that time stated needs to cough something up and noted pink sputum. Placed on CPAP on seen and went unresponsive after 2 minutes requiring BVM respirations. Patient trialed on BiPap in the ER and conitnued to have saturations ranging 85%-89% on 100% O2. She was subsequently intubated. Patient given IV lasix, solumederol and ativan in the ED. Patient recently admitted for CHF exacerbation and discharged on 09/05/17. Son, Dominic Lanza contacted for further information. Claimed he is unsure of full history. States earlier today at 1130PM she had an argument with nephew who son claims is a major stressor to her health. He states she has a history of anxiety, hyperventilatioin and this may have off increased her blood pressure. Denies any history of suicidal ideation. Reported mother bleeding heavy through period recently. ER course: Patient was placed on BiPAP by respiratory with O2 sats 85% with 100% O2 but did not tolerate for more than 15 minutes. She was subsequently intubated. CXR positive for bilateral airspace opacities. Troponins significantly elevated higher than previous admissions (315). EKG changes demonstrated ST elevations in V1-V4, depression in V5-V6. Cardiology paged. Warrants ICU admission. Repeat EKG demonstrates resolving ST changes. Assesment and Plan 67 yo F with history of CHF EF 55%, HTN, HLD, DM, CKD, recently admitted for acute exacerbation of CHF (09/06-09/09/17). Patient presented with SOB and lethargy/unresponsiveness. According to EMS, they are called for patient with acute onset of SOB. No documentation of chest pain but she has epigastric pain and pink frothy sputum. She got SL nitro x1 and placed on CPAP. However she became unresponsive. In the ED, patient was changed to Bipap but eventually got intubated due to hypoxic respiratory failure with unresponsiveness. Problem list 1. Acute pulmonary edema leading to acute hypoxemic respiratory failure due to acute congestive heart failure from active myocardial ischemia. Patient does have ST-T changes in the anterior lateral leads. (Recent admission with diastolic heart failure with acute on chronic failure with mild elevated troponin) 2. Respiratory failure due to pulmonary edema 3. Chronic kidney disease due to diabetes and hypertension stage III now adequately making urine 4. Diabetes, hypertension, hyperlipidemia, which is relatively well controlled 5. Significant hypertension no seems to be responding to nitroglycerin Plan ACS Likely NSTEMI, needs cath as soon as stabilized. ACS protocol started with IV heparin, IV nitroglycerine for HTN, clopidogrel loaded, high intensity statin ( Atorvastatin), Coreg 6.25mg bid. ECHO done, sending CD with the report. OG tube placed, placement needs to be confirmed, radiology report pending. Intubated on100% intially improved to 40% FiO2, PEEP of 15 reduced to 10. pulm edema improved. She is getting transferred to [facility] for catheterization. Home medications needs to be confirmed. Per the list available include loratadine, escitalopram, losartan, spironolactone, clonidine, pantop, coreg. DVT prophylaxis IV heparin Code status Full code Complications: transferred to [facility] for [facility]ization Allergies: Coded Allergies: No Known Allergies (09/21/17) Significant Procedures: CXR at admission IMPRESSION: Diffuse bilateral airspace opacities which are worse when compared to the prior study. Findings could represent diffuse alveolar edema, ARDS, or multifocal pneumonia. Head CT IMPRESSION: No acute intracranial pathology. Near complete opacification of the sphenoid sinuses. Chest Xay today IMPRESSION: 1. The tip of the enteric tube is not optimally visualized, it appears infradiaphragmatic. 2. The tip of the endotracheal tube is located approximately 6.3 cm above the level of the hui. 3. Near diffuse bilateral dense airspace disease, similar to the prior study dated 09/21/2017. Pertinent Lab Results: as above Disposition Summary Disposition Principal Diagnosis: ACUTE CORONARY SYNDROME - NSTEMI LIKELY Additional Diagnosis: CKD RESPIRATORY FAILURE DM HTN HLD Discharge Disposition: other general hospital Discharge Instructions General Discharge Information Code Status: Full Code Patient's Diet: NPO FOR NOW Patient's Activity: TOLERATED Follow-Up Instructions/Appts: PLEASE FOLLOW UP WITH [facility] AND Medications at Discharge Discharge Medications: Stop taking the following medications: Gabapentin (Neurontin) 300 MG CAPSULE ORAL THREE TIMES DAILY Montelukast Sodium (Singulair) 10 MG TABLET ORAL DAILY Glimepiride (Amaryl) 4 MG TABLET ORAL DAILY Acetaminophen (Tylenol Extra Strength) 500 MG TABLET ORAL 4 TIMES A DAY as needed for Leg Pain Qty = 30 Diclofenac Sodium (Voltaren) 1 % GEL..GRAM. On the skin 4 TIMES A DAY Qty = 1 Tramadol HCl (Tramadol HCl) 50 MG TABLET ORAL Every night as needed as needed for PAIN Continue taking these medications: Furosemide (Furosemide) 40 MG TABLET 1 Tablet ORAL DAILY Comments: Last Taken: 09/21/17 Time: 08:00 RECEIVED IV LASIX 40 MG Pantoprazole Sodium (Protonix) 40 MG TABLET. 1 Tablet ORAL DAILY Comments: RECIEVED PRILOSEC WHILE AT HOSPITAL Last Taken: 09/08/17 Time: 8:30 AM Clonidine (Catapres) 0.2 MG TABLET 1 Tablet ORAL DAILY Comments: NOT GIVEN IN HOSPITAL Carvedilol (Coreg) 6.25 MG TABLET 1 Tablet ORAL TWICE DAILY Comments: NOT GIVEN IN HOSPITAL Loratadine (Claritin) 10 MG TABLET 1 Tablet ORAL DAILY Comments: NOT GIVEN WHILE IN HOSPITAL Escitalopram Oxalate (Lexapro) 10 MG TABLET 1.5 Tablet ORAL AT BEDTIME Comments: NOT GIVEN WHILE IN HOSPITAL Spironolactone (Aldactone) 50 MG TABLET 1 Tablet ORAL DAILY Qty = 30 Comments: Last Taken: 09/08/17 Time: 8:30 AM Ferrous Sulfate (Ferrous Sulfate) 325 MG (65 MG IRON) TABLET 1 Tablet ORAL TWICE DAILY Comments: NOT GIVEN IN HOSPITAL Losartan Potassium (Losartan Potassium) 100 MG TABLET 1 Tablet ORAL DAILY Qty = 30 Comments: NOT GIVEN IN HOSPITAL Start taking the following new medications: Atorvastatin Calcium (Atorvastatin Calcium) 80 MG TABLET 80 Milligram ORAL 5 PM Qty = 30 No Refills Lorazepam (Ativan) 2 MG/ML VIAL 2 Milligram IV GIVE ONCE as needed for AGITATION ON VENTILATOR Qty = 2 No Refills Clopidogrel Bisulfate (Clopidogrel) 75 MG TABLET 1 Tablet ORAL DAILY Qty = 30 No Refills Heparin (Heparin-1/2NS 25,000 Units/500) 25,000 UNIT/500 ML (50 UNIT/ML) IV.SOLN 12 PKG IV EVERY HOUR Qty = 1 No Refills Aspirin (Aspirin*) 81 MG TAB.CHEW 1 Tablet ORAL DAILY Qty = 30 No Refills Nitroglycerin (Ntg 50 MG/500 Ml in D5w) 50 MG/500 ML (0.1 MG/ML) INFUS..BTL 3 Milligram IV EVERY HOUR Qty = 1 No Refills Copies To: Diana BOWMAN,Alvarado Cooney; Boom BOWMAN,Hussain Reynoso; Valdemar BOWMAN,Marshall Attending MD Review Statement Documenting Attending: Alvarado Ortiz MD
--- NOTE | 2017-09-21 09:50 | Cons- CRCU ---
See Addendum General Information and HPI Consulting Request Date of Consult: 09/21/17 Requested By: med team History of Present Illness: I was asked to resume care of this lady this morning at 8 AM. History in the emergency room as noted below Patient is a 67 year old female with past medical history of heart failure with preserved ejection fraction, DM, HTN, HLD, CKD stage IIIB, who was brought to the ED by ambulance. Patient was found to be unresponsive with respirations assisted by BVM. Per EMS, patient called 911 for shortness of breath and epigastric pain. Patient at that time stated needs to cough something up and noted pink sputum. Placed on CPAP on seen and went unresponsive after 2 minutes requiring BVM respirations. Patient trialed on BiPap in the ER and conitnued to have saturations ranging 85%-89% on 100% O2. She was subsequently intubated. Patient given IV lasix, solumederol and ativan in the ED. Patient recently admitted for CHF exacerbation and discharged on 09/05/17. Son, Dominic Lanza contacted for further information. Claimed he is unsure of full history. States earlier today at 1130PM she had an argument with nephew who son claims is a major stressor to her health. He states she has a history of anxiety, hyperventilatioin and this may have off increased her blood pressure. Denies any history of suicidal ideation. Reported mother bleeding heavy through period recently. Subsequent to the above history Patient is now intubated Awake alert does follow commands Is making urine Blood pressure seems to be improving now with the blood pressure 120. Patient is on nitro drip, did get low-dose Coreg, now on heparin, dual antiplatelet therapy. Did not complain of chest pain when I saw her. Her EKGs were reviewed which showed dynamic EKG changes in the anterior lateral leads. Prior to that she had significant hypertensive heart disease with recent heart failure as well and patient has chronic kidney disease SIGNIFICANT DATA Chest x-ray showed pulmonary edema ET tube about 6 cm above hui Head CT no significant no intracranial bleed but patient did have sphenoid sinus opacification Lower extremity Doppler recently done in August was unremarkable last chest x-ray showed heart failure which was done end of August Ultrasound of the abdomen showed unremarkable kidney Creatinine is chronically elevated around 1.722 this morning it was 2 anion gap upon admission was normal lactic acid was slightly elevated upon admission her cholesterol was elevated which was done few years ago She has altered LFTs since admission troponin was 3.15 pending from this morning last thyroid function tests checked a year ago was normal her A1c was elevated urine tox screen was unremarkable proBNP 5330 Allergies/Medications Allergies: Coded Allergies: No Known Allergies (09/21/17) Home Med List: Acetaminophen (Tylenol Extra Strength) 500 MG TABLET 1-2 TAB PO 4 TIMES/DAY PRN Leg Pain Carvedilol (Coreg) 6.25 MG TABLET 1 TAB PO BID HTN (Reported) Clonidine (Catapres) 0.2 MG TABLET 1 TAB PO DAILY HTN (Reported) Diclofenac Sodium (Voltaren) 1 % GEL..GRAM. 1 GM TOP 4 TIMES/DAY JOINT PAIN apply to your knees Escitalopram Oxalate (Lexapro) 10 MG TABLET 1.5 TAB PO AT BEDTIME depression (Reported) Ferrous Sulfate 325 MG (65 MG IRON) TABLET 1 TAB PO BID IRON, VITAMIN ( Reported) Furosemide 40 MG TABLET 1 TAB PO DAILY heart (Reported) Gabapentin (Neurontin) 300 MG CAPSULE 1 CAP PO TID NEUROPATHY (Reported) Glimepiride (Amaryl) 4 MG TABLET 1 TAB PO DAILY DIABETES (Reported) Loratadine (Claritin) 10 MG TABLET 1 TAB PO DAILY ALLERGIES (Reported) Losartan Potassium 100 MG TABLET 1 TAB PO DAILY blood pressure Montelukast Sodium (Singulair) 10 MG TABLET 1 TAB PO DAILY SOB (Reported) Pantoprazole Sodium (Protonix) 40 MG TABLET.DR 1 TAB PO DAILY GI (Reported) Spironolactone (Aldactone) 50 MG TABLET 1 TAB PO DAILY herat (Reported) Tramadol HCl 50 MG TABLET 1-2 TAB PO QPMP PRN PAIN (Reported) Review of Systems Review of Systems Constitutional: Denies: see HPI. 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 FH: CHF (congestive heart failure) FH: diabetes mellitus, Onset: 60+. FH: myocardial infarction BROTHER FH: diabetes mellitus GRANDFATHER FH: diabetes mellitus Psychosocial History Where Do You Live? Home Who Do You Live With? self Services at Home: Home Health Aide Primary Language: Kinyarwanda Smoking Status: Former Smoker Functional Ability ADLs Independent: dressing, eating, toileting, bathing. Ambulation: cane, walker, 2/2 neuropathy IADLs Independent: finances, food prep, telephone, transportation, medication admin. Needs Assist: shopping, housework. Exam & Diagnostic Data Last 24 Hrs of Vital Signs/I&O Vital Signs Date Time Temp Pulse Resp B/P B/P Pulse O2 O2 Flow FiO2 Mean Ox Delivery Rate 09/21 0925 60 09/21 0700 92 Ventilator 100% 09/21 0700 96.2 84 24 134/80 92 Ventilator 100% / 0515 72 24 166/71 98 Ventilator / 0513 100 / 0505 70 24 195/82 91 Ventilator 08/ 0424 68 24 172/84 98 Ventilator 08/ 0405 24 94 Ventilator 08/ 0358 68 24 183/77 85 Ventilator 08/ 0350 98.9 70 24 187/79 96 Ventilator 08/ 0337 48 24 109/56 100 Ventilator 08/09 0320 48 24 107/53 99 Ventilator 08/ 0315 100 08/09 0257 57 24 100/50 91 Ventilator 08/09 0250 48 24 62/40 99 Ventilator 100% / 0240 49 24 82/45 97 Ventilator 08/ 0215 56 24 101/52 96 Ventilator 08/ 0207 100 / 0205 60 24 118/58 89 Ventilator 08/ 0154 100 / 0152 63 24 123/59 88 Ventilator 08/ 0125 108 30 200/94 85 BIPAP 08/09 0115 100 30 215/90 84 BIPAP 08/ 0056 107 88 08/ 0054 97.5 106 24 180/107 88 BIPAP 100% / 0045 98 / 0042 114 26 158/88 98 100% Intake & Output / 1600 08/09 0800 08/09 0000 Intake Total 0 Output Total 175 Balance -175 Intake, Oral 0 Output, Urine 175 Patient 322 lb Weight Weight Bed scale Measurement Method Last 48 Hrs of Labs/Martinez: Laboratory Tests 09/21/17 0928: Sodium Pending, Potassium Pending, Chloride Pending, Carbon Dioxide Pending, Anion Gap Pending, BUN Pending, Creatinine Pending, BUN/Creatinine Ratio Pending , Troponin I Pending 09/21/17 0650: pH 7.33 L, pCO2 40, pO2 156 H, HCO3 21, ABG O2 Sat (Measured) 99.0, P-50 (Temp Corrected) N, Carboxyhemoglobin 0.6 L, O2 Concentration % 100, Respiration Rate 24, O2 Delivery Method VENT, Vent Mode A/C, Expiratory Pressure 15, Tidal Volume 600, Phlebotomy Draw Site RIGHT BRACHIAL 09/21/17 06: Lactic Acid 4.2 H 09/21/17 0635: Anion Gap 12, Estimated GFR 25 L, Glucose 312 H, Calcium 9.4, Phosphorus 5.3 H, Magnesium 2.0, Total Bilirubin 0.3, AST 158 H, ALT 29, Albumin 3.7, PT 13.4 H, INR 1.23 H, APTT 30 09/21/17 0305: Anion Gap 9, Estimated GFR 27 L, BUN/Creatinine Ratio 25.3 H, Glucose 375 H, Lactic Acid 3.0 H, Calcium 8.8, Magnesium 2.0, Total Bilirubin 0.3, AST 61 H, ALT 20, Alkaline Phosphatase 130 H, Troponin I 3.15 *H, Gfm-X-Tdwyoivloio Pept 5330 H, Total Protein 6.5, Albumin 3.2 L, Globulin 3.3, Albumin/Globulin Ratio 1.0 L, CBC w Diff MAN DIFF ORDERED, RBC 3.47 L, MCV 89.0, MCH 28.5, MCHC 32.0 L, RDW 17.9 H, MPV 9.8, Gran % 92.1 H, Lymphocytes % 5.4 L, Monocytes % 2.1, Eosinophils % 0.1, Basophils % 0.3, Absolute Granulocytes 13.0 H, Segmented Neutrophils 88 H, Band Neutrophils 1, Absolute Lymphocytes 0.8 L, Lymphocytes 5 L, Monocytes 3, Absolute Monocytes 0.3, Eosinophils 1, Absolute Eosinophils 0 , Basophils 2, Absolute Basophils 0, Platelet Estimate ADEQUATE, Polychromasia 1 +, Hypochromic-Microcytic 1+, Poikilocytosis 1+, Ovalocytes 1+, Fld Total RBCs Counted 100 09/21/17 0250: Urine Opiates Screen < 100, Methadone Screen 41, Barbiturate Screen < 60, Ur Phencyclidine Scrn < 6.00, Amphetamines Screen < 100, U Benzodiazepines Scrn < 85, Urine Cocaine Screen < 50, Urine Cannabis Screen < 5.00, Urinalysis LIGHT H , Urine Color STRAW, Urine Clarity HAZY H, Urine pH 6.0, Ur Specific [place] 1.025, Urine Protein 100 H, Urine Ketones NEG, Urine Nitrite NEG, Urine Bilirubin NEG, Urine Urobilinogen 0.2, Ur Leukocyte Esterase NEG, Ur Microscopic SEDIMENT EXAMINED, Urine RBC 3-5, Urine WBC 1-3 H, Ur Epithelial Cells FEW, Urine Bacteria RARE H, Urine Hemoglobin SMALL H, Urine Glucose 250 H 09/21/17 0225: pH 7.33 L, pCO2 35, pO2 74 L, HCO3 18 L, ABG O2 Sat (Measured) 93.0 L, P-50 (Temp Corrected) N, Carboxyhemoglobin 0.2 L, O2 Concentration % 100, Respiration Rate 24, O2 Delivery Method VENT, Vent Mode A/C, Expiratory Pressure 20, Tidal Volume 600, Phlebotomy Draw Site RIGHT BRACHIAL Assessment/Plan CRCU Impression/Plan: General Appearance Intubated / Sedated/ wakes up and follow commands Skin No Rashes, No Breakdown HEENT PERRLA, intubated/og tube Neck Supple, No JVD, No thryomegaly Cardiovascular Normal S1, Normal S2, tachycardia Lungs crackles in lung bases bilatearlly; on ventilator Abdomen Normal Bowel Sounds, Soft, No Tenderness Neurological Sedated/Intubated Extremities No Clubbing, No Cyanosis 67 yo F with history of CHF EF 55%, HTN, HLD, DM, CKD, recently admitted for acute exacerbation of CHF (09/06-09/09/17). Patient presented with SOB and lethargy/unresponsiveness. According to EMS, they are called for patient with acute onset of SOB. No documentation of chest pain but she has epigastric pain and pink frothy sputum. She got SL nitro x1 and placed on CPAP. However she became unresponsive. In the ED, patient was changed to Bipap but eventually got intubated due to hypoxic respiratory failure with unresponsiveness. Issues include * Acute pulmonary edema leading to acute hypoxemic respiratory failure due to acute congestive heart failure from active myocardial ischemia. Patient does have ST-T changes in the anterior lateral leads. Cardiology to see now. I did discuss with Dr. Aldrich will be seeing as soon as possible. Echo ongoing at this time. (Recent admission with diastolic heart failure with acute on chronic failure with mild elevated troponin) * Respiratory failure due to pulmonary edema * Chronic kidney disease due to diabetes and hypertension stage III now adequately making urine * Diabetes, hypertension, hyperlipidemia, which is relatively well controlled * Significant hypertension no seems to be responding to nitroglycerin RECOMMENDATION Continue mechanical ventilator, reduce FiO2, reduce PEEP and reduce tidal volume to 550 Continue low-dose sedation with low-dose benzos and fentanyl Continue heparin, dual antiplatelet therapy Wean off nitroglycerin as the chest pain seems to be better For possible cardiac cath today Sugar control with sliding scale High dose statin Critically ill tts 45 mins Consult Acknowledgment - Thank you for your consult request.
--- NOTE | 2017-09-21 09:53 | RADIOLOGY REPORT ---
EXAMINATION: XR PORTABLE CHEST CLINICAL INFORMATION: 67-year-old female with OG-tube placement. COMPARISON: Chest done on 09/21/2017. TECHNIQUE: Portable frontal view of the chest (2 images were obtained). FINDINGS: The tip of the enteric tube is not optimally visualized, it appears infradiaphragmatic. The tip of the endotracheal tube is located approximately 6.3 cm above the level of the hui. The previously documented extensive bilateral near diffuse airspace disease appears stable. Cardiomediastinal silhouette is within normal limits. IMPRESSION: 1. The tip of the enteric tube is not optimally visualized, it appears infradiaphragmatic. 2. The tip of the endotracheal tube is located approximately 6.3 cm above the level of the hui. 3. Near diffuse bilateral dense airspace disease, similar to the prior study dated 09/21/2017.
[2017-09-21] MEDS ORDERED: ATORVASTATIN CA80 M1 PO (10:28)
[2017-09-21] MEDS ORDERED: HEPARIN-1/25000 UNI1 IV (10:31)
[2017-09-21] MEDS ORDERED: ATIVAN2 MG/1 ML IV (10:31)
[2017-09-21] MEDS ORDERED: CLOPIDOGREL75 M1 PO (10:31)
--- NOTE | 2017-09-21 10:33 | Patient Discharge Instructions ---
Discharge Instructions General Discharge Information You were seen/treated for: ACUTE CORONARY SYNDROME LEADING TO HEART FAILURE Special Instructions: PLEASE FOLLOW UP WITH YOUR BIOMETRICS INSTRUCTOR IN A WEEK PLEASE FOLLOW UP WITH [facility] Diet Recommended Diet: NPO FOR NOW Activity Activity Self Limited: Yes Acute Coronary Syndrome Inclusion Criteria At DC or during hospital stay patient has or had the following: ACS DIAGNOSIS Yes Discharge Core Measures Meds if any: Prescribed or Continued at Discharge Aspirin Yes Beta-Fanny Yes Statin Yes Meds if any: NOT Prescribed or Continued at Discharge Congestive Heart Failure Inclusion Criteria At DC or during hospital stay patient has or had the following: CHF DIAGNOSIS No Discharge Core Measures Meds if any: Prescribed or Continued at Discharge Meds if any: NOT Prescribed or Continued at Discharge Cerebrovascular accident Inclusion Criteria At DC or during hospital stay patient has or had the following: CVA/TIA Diagnosis No Discharge Core Measures Meds if any: Prescribed or Continued at Discharge Meds if any: NOT Prescribed or Continued at Discharge Venous thromboembolism Inclusion Criteria VTE Diagnosis No VTE Type NONE VTE Confirmed by (Test) NONE Discharge Core Measures - Per Current guidelines, there needs to be overlap - treatment for the first 5 days of Warfarin therapy. - If discharged on Warfarin prior to 5 days of - overlap therapy, the patient will need to be - assessed for post discharge needs including - *Post discharge parental anticoagulation - *Warfarin and/or parental anticoagulation education - *Follow up date to check INR post discharge At least 5 days overlap therapy as Inpatient No Meds if any: Prescribed or Continued at Discharge Note: Overlap Therapy is Warfarin and Anticoagulant Meds if any: NOT Prescribed or Continued at Discharge
[2017-09-21] MEDS ORDERED: ASPIRIN81 M4 PO (10:48)
--- NOTE | 2017-09-21 10:48 | Cons- Cardiology ---
General Information and HPI Consulting Request Date of Consult: 09/21/17 Requested By: Diana BOWMAN,Alvarado Cooney Reason for Consult: Non-ST elevation myocardial infarction History of Present Illness: The patient is a 67-year-old female with history of diabetes mellitus, hypertension, chronic kidney disease who was recently admitted with diastolic heart failure and mild troponin elevation. Last night she had an argument with a family member and subsequently developed shortness of breath. EMS was called and found her to be in respiratory distress. She was initially placed on BiPAP and transferred to the emergency department. She continues to have poor oxygen saturation on BiPAP and she was intubated. She was treated with IV Lasix with improvement in in ejection fraction. Initial EKG revealed incomplete left bundle branch block with nonspecific ST changes. There was no definite ST elevation, however ST elevation was erroneously documented admitting team. Initial troponin was 3.15, and second troponin is pending. The patient received IV Lasix 40 mg 2 doses, and respiratory status is significantly improved, however she remains intubated Allergies/Medications Allergies: Coded Allergies: No Known Allergies (09/21/17) Home Med List: Acetaminophen (Tylenol Extra Strength) 500 MG TABLET 1-2 TAB PO 4 TIMES/DAY PRN Leg Pain Aspirin (Aspirin*) 81 MG TAB.CHEW 1 TAB PO DAILY heart health Atorvastatin Calcium 80 MG TABLET 80 MG PO 1700 heart [facility] Carvedilol (Coreg) 6.25 MG TABLET 1 TAB PO BID HTN (Reported) Clonidine (Catapres) 0.2 MG TABLET 1 TAB PO DAILY HTN (Reported) Clopidogrel Bisulfate (Clopidogrel) 75 MG TABLET 1 TAB PO DAILY HEART HEALTH Diclofenac Sodium (Voltaren) 1 % GEL..GRAM. 1 GM TOP 4 TIMES/DAY JOINT PAIN apply to your knees Escitalopram Oxalate (Lexapro) 10 MG TABLET 1.5 TAB PO AT BEDTIME depression (Reported) Ferrous Sulfate 325 MG (65 MG IRON) TABLET 1 TAB PO BID IRON, VITAMIN ( Reported) Furosemide 40 MG TABLET 1 TAB PO DAILY heart (Reported) Gabapentin (Neurontin) 300 MG CAPSULE 1 CAP PO TID NEUROPATHY (Reported) Glimepiride (Amaryl) 4 MG TABLET 1 TAB PO DAILY DIABETES (Reported) Heparin (Heparin-1/2NS 25,000 Units/500) 25,000 UNIT/500 ML (50 UNIT/ML) IV.SOLN 12 PKG IV Q1 HEART HEALTH Loratadine (Claritin) 10 MG TABLET 1 TAB PO DAILY ALLERGIES (Reported) Lorazepam (Ativan) 2 MG/ML VIAL 2 MG IV ONCE PRN AGITATION ON VENTILATOR Losartan Potassium 100 MG TABLET 1 TAB PO DAILY blood pressure Montelukast Sodium (Singulair) 10 MG TABLET 1 TAB PO DAILY SOB (Reported) Pantoprazole Sodium (Protonix) 40 MG TABLET.DR 1 TAB PO DAILY GI (Reported) Spironolactone (Aldactone) 50 MG TABLET 1 TAB PO DAILY herat (Reported) Tramadol HCl 50 MG TABLET 1-2 TAB PO QPMP PRN PAIN (Reported) Current Medications: Current Medications Sig/Laure Start time Last Medication Dose Route Stop Time Status Admin Albuterol Sulfate 3 ML ONCE ONE 09/21 44 DC 09/21 INH 09/21 45 0055 Aspirin 325 MG ONCE ONE 09/21 444 DC 09/21 PO 09/21 445 0623 Atorvastatin Calcium 80 MG 1700 09/21 599 AC PO Azithromycin 500 MG ONCE ONE 09/21 199 CAN Sodium Chloride 250 ML IV 09/21 025 Calcium Gluconate 0 .STK-MED ONE 09/21 433 DC IV Calcium Gluconate 1 GM ONCE ONE 09/21 414 DC 09/21 Sodium Chloride 100 ML IV 09/21 0514 0454 Carvedilol 6.25 MG BID 09/21 599 AC PO Ceftazidime 0 .STK-MED ONE 09/21 0327 DC .ROUTE Ceftazidime 1,000 MG ONCE ONE 09/21 199 DC 09/21 IV 09/21 020 0333 Clopidogrel Bisulfate 300 MG ONCE ONE 09/21 444 DC 09/21 PO 09/21 445 0623 Dextrose 0 .STK-MED ONE 09/21 0434 DC IV Dextrose 25 GM ONCE ONE 09/21 0415 DC 09/21 IV 09/21 0416 0454 Doxycycline Hyclate 100 MG ONCE ONE 09/21 314 DC 09/21 Sodium Chloride 100 ML IV 09/22 419 0350 Etomidate 20 MG ONCE ONE 09/21 199 DC 09/21 IV 09/21 200 0126 Fentanyl Citrate 50 MCG Q6-PRN PRN 09/21 914 IV Furosemide 40 MG 7:30 AM, & 4:30 PM 09/21 729 AC 09/21 IV 0800 Furosemide 40 MG ONCE ONE 08/09 0100 DC 08/ IV 09/21 0101 0045 Furosemide 0 .STK-MED ONE 09/21 0048 DC IV Heparin Sodium 25,000 UNIT Q24H 09/21 0530 AC 09/21 (Porcine) IV 0633 Sodium Chloride 500 ML Insulin Human Regular 0 Q6 09/21 1200 AC SC Insulin Human Regular 10 UNITS ONCE ONE 09/21 0415 DC / IV 09/21 0416 0454 Lorazepam 0.5 MG Q6-PRN PRN 09/21 0915 AC IV Lorazepam 2 MG ONE ONE 09/21 0545 DC / IV 09/21 0546 0540 Lorazepam 0 .STK-MED ONE 09/21 0538 DC .ROUTE Lorazepam 2 MG ONE ONE 09/21 0415 DC / IV 09/21 0416 0403 Lorazepam 0 .STK-MED ONE 09/21 0403 DC .ROUTE Lorazepam 1 MG ONCE ONE 09/21 0200 DC / IV 09/21 0201 0141 Lorazepam 0 .STK-MED ONE 09/21 0142 DC .ROUTE Methylprednisolone 125 MG ONCE ONE 09/21 0100 DC 08/ IV 09/21 0101 0045 Methylprednisolone 0 .STK-MED ONE 09/21 0048 DC .ROUTE Nitroglycerin 25 MG Q24H 09/21 0445 AC 09/21 Dextrose/Water 250 ML IV 0613 Sodium Polystyrene 0 .STK-MED ONE 09/21 0434 DC Sulfonate .ROUTE Sodium Polystyrene 60 ML ONCE ONE 09/21 0415 DC Sulfonate ME 09/21 0416 Succinylcholine 150 MG ONCE ONE 09/21 0200 DC / Chloride IV 09/21 0201 0127 Vecuronium [place] 10 MG ONCE ONE 09/21 0315 DC 08/ IV / 0316 0258 Vecuronium [place] 0 .STK-MED ONE 09/21 0257 DC IV Vecuronium [place] 10 MG ONCE ONE 09/21 0200 DC 08/ IV 09/21 0201 0140 Review of Systems Review of Systems: Review of systems is not obtainable because the patient is intubated and sedated Past History Travel History Traveled to [place] past 21 day No Medical History Neurological: peripheral neuropathy EENT: allergies, diabetic retinopathy Cardiovascular: CHF, hypertension, hyperlipidemia Respiratory: bronchitis, COPD Gastrointestinal: GERD, appendicitis ventral hernia Hepatic: NONE Renal: abnormal kidney function Musculoskeletal: sciatica, arthritis Psychiatric: depression Endocrine: diabetes Blood Disorders: anemia Cancer(s): 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 FH: CHF (congestive heart failure) FH: diabetes mellitus, Onset: 60+. FH: myocardial infarction BROTHER FH: diabetes mellitus GRANDFATHER FH: diabetes mellitus Psychosocial History Where Do You Live? Home Who Do You Live With? self Services at Home: Home Health Aide Primary Language: Danish Smoking Status: Former Smoker Functional Ability ADLs Independent: dressing, eating, toileting, bathing. Ambulation: cane, walker, 2/2 neuropathy IADLs Independent: finances, food prep, telephone, transportation, medication admin. Needs Assist: shopping, housework. Exam & Diagnostic Data Vital Signs and I&O Vital Signs Date Time Temp Pulse Resp B/P B/P Pulse O2 O2 Flow FiO2 Mean Ox Delivery Rate 09/21 0925 60 09/21 0800 100 Ventilator 100% 09/21 0800 96.9 72 24 160/0 100 Ventilator 100% / 0700 92 Ventilator 100% / 0700 96.2 84 24 134/80 92 Ventilator 100% / 0515 72 24 166/71 98 Ventilator 08/09 0513 100 08/09 0505 70 24 195/82 91 Ventilator 08/09 0424 68 24 172/84 98 Ventilator 08/ 0405 24 94 Ventilator 08/ 0358 68 24 183/77 85 Ventilator 08/ 0350 98.9 70 24 187/79 96 Ventilator 08/09 0337 48 24 109/56 100 Ventilator 08/ 0320 48 24 107/53 99 Ventilator 08/ 0315 100 08/09 0257 57 24 100/50 91 Ventilator 08/09 0250 48 24 62/40 99 Ventilator 100% / 0240 49 24 82/45 97 Ventilator 08/09 0215 56 24 101/52 96 Ventilator 08/ 0207 100 08/09 0205 60 24 118/58 89 Ventilator 08/ 0154 100 08/ 0152 63 24 123/59 88 Ventilator 08/ 0125 108 30 200/94 85 BIPAP 08/ 0115 100 30 215/90 84 BIPAP 09/21 0056 107 88 09/21 0054 97.5 106 24 180/107 88 BIPAP 100% 09/21 0045 98 09/21 0042 114 26 158/88 98 100% Intake & Output 09/21 0809/21 0000 09/20 0000 Intake Total 0 Output Total 175 Balance -175 Intake, Oral 0 Output, Urine 175 Patient 322 lb Weight Weight Bed scale Measurement Method Physical Exam: Gen: The patient is in no acute distress HEENT: Normal nose, ears, and oropharynx. Pupils equal bilaterally. Conjunctiva normal. Neck: Supple with no JVD, no masses, and no thyromegaly Lungs: Clear lung fuentes anteriorly on the ventilator Heart: RRR, S1, S2, no murmurs. No peripheral edema, 2+ pulses in the lower extremities bilaterally Abdomen: Soft, nontender, no masses. No hepatomegaly. No splenomegaly Extremities: No clubbing or cyanosis. Normal muscle strength in the upper and lower extremities Skin: Normal skin turgor with no skin ulcers or lesions noted. Neuro: Cranial nerves intact. Sensation intact Psych: intubated and sedated Labs/Martinez Results: Laboratory Tests 09/21 09/21 09/21 09/21 0928 0650 0635 0635 Blood Gas pH (7.35 - 7.45 PH) 7.33 L pCO2 (35 - 45 TORR) 40 pO2 (80 - 100 TORR) 156 H HCO3 (21 - 28 MEQ/L) 21 ABG O2 Sat (Measured) (>96.0 %) 99.0 P-50 (Temp Corrected) N Carboxyhemoglobin (1.5 - 5.0 %) 0.6 L O2 Concentration % 100 Respiration Rate (BPM) 24 O2 Delivery Method VENT Vent Mode A/C Expiratory Pressure (CMH2O/P) 15 Tidal Volume (CC) 600 Chemistry Sodium (137 - 145 mmol/L) 138 139 Potassium (3.5 - 5.1 mmol/L) 5.6 H 5.4 H Chloride (98 - 107 mmol/L) 103 102 Carbon Dioxide (22 - 30 mmol/L) 26 24 Anion Gap (5 - 16) 9 12 BUN (7 - 17 mg/dL) 50 H 48 H Creatinine (0.5 - 1.0 mg/dL) 1.9 H 2.0 H Estimated GFR (>60 ml/min) 27 L 25 L BUN/Creatinine Ratio (7 - 25 %) 26.3 H Glucose (65 - 99 mg/dL) 312 H Lactic Acid (0.7 - 2.1 mmol/L) 4.2 H Calcium (8.4 - 10.2 mg/dL) 9.4 Phosphorus (2.5 - 4.5 mg/dL) 5.3 H Magnesium (1.6 - 2.3 mg/dL) 2.0 Total Bilirubin (0.2 - 1.3 mg/dL) 0.3 AST (14 - 36 U/L) 158 H ALT (9 - 52 U/L) 29 Troponin I (< 0.11 ng/ml) Pending Albumin (3.5 - 5.0 g/dL) 3.7 Coagulation PT (9.4 - 12.5 SEC) 13.4 H INR (0.90 - 1.19) 1.23 H APTT (25 - 37 SEC) 30 Miscellaneous Phlebotomy Draw Site RIGHT BRACHIAL 09/21 09/21 0305 0250 Chemistry Sodium (137 - 145 mmol/L) 136 L Potassium (3.5 - 5.1 mmol/L) 6.5 *H Chloride (98 - 107 mmol/L) 102 Carbon Dioxide (22 - 30 mmol/L) 25 Anion Gap (5 - 16) 9 BUN (7 - 17 mg/dL) 48 H Creatinine (0.5 - 1.0 mg/dL) 1.9 H Estimated GFR (>60 ml/min) 27 L BUN/Creatinine Ratio (7 - 25 %) 25.3 H Glucose (65 - 99 mg/dL) 375 H Lactic Acid (0.7 - 2.1 mmol/L) 3.0 H Calcium (8.4 - 10.2 mg/dL) 8.8 Magnesium (1.6 - 2.3 mg/dL) 2.0 Total Bilirubin (0.2 - 1.3 mg/dL) 0.3 AST (14 - 36 U/L) 61 H ALT (9 - 52 U/L) 20 Alkaline Phosphatase (<127 U/L) 130 H Troponin I (< 0.11 ng/ml) 3.15 *H Tmk-T-Inldciqupqo Pept (<125 pg/mL) 5330 H Total Protein (6.3 - 8.2 g/dL) 6.5 Albumin (3.5 - 5.0 g/dL) 3.2 L Globulin (1.9 - 4.2 gm/dL) 3.3 Albumin/Globulin Ratio (1.1 - 2.2 %) 1.0 L Hematology CBC w Diff MAN DIFF ORDERED WBC (4.8 - 10.8 /CUMM) 14.1 H RBC (4.20 - 5.40 /CUMM) 3.47 L Hgb (12.0 - 16.0 G/DL) 9.9 L Hct (37 - 47 %) 30.9 L MCV (81.0 - 99.0 FL) 89.0 MCH (27.0 - 31.0 PG) 28.5 MCHC (33.0 - 37.0 G/DL) 32.0 L RDW (11.5 - 14.5 %) 17.9 H Plt Count (130 - 400 /CUMM) 323 MPV (7.4 - 10.4 FL) 9.8 Gran % (42.2 - 75.2 %) 92.1 H Lymphocytes % (20.5 - 51.1 %) 5.4 L Monocytes % (1.7 - 9.3 %) 2.1 Eosinophils % (0 - 5 %) 0.1 Basophils % (0.0 - 2.0 %) 0.3 Absolute Granulocytes (1.4 - 6.5 /CUMM) 13.0 H Segmented Neutrophils (42.2 - 75.2 %) 88 H Band Neutrophils (0.0 - 5.0 %) 1 Absolute Lymphocytes (1.2 - 3.4 /CUMM) 0.8 L Lymphocytes (20.5 - 51.1 %) 5 L Monocytes (1.7 - 9.3 %) 3 Absolute Monocytes (0.10 - 0.60 /CUMM) 0.3 Eosinophils (0 - 5.0 %) 1 Absolute Eosinophils (0.0 - 0.7 /CUMM) 0 Basophils (0.0 - 2.0 %) 2 Absolute Basophils (0.0 - 0.2 /CUMM) 0 Platelet Estimate (ADEQUATE) ADEQUATE Polychromasia 1+ Hypochromic-Microcytic 1+ Poikilocytosis 1+ Ovalocytes 1+ Other Body Source Fld Total RBCs Counted (%) 100 Toxicology Urine Opiates Screen (>2000 NG/ML) < 100 Methadone Screen (>300 NG/ML) 41 Barbiturate Screen (>200 NG/ML) < 60 Ur Phencyclidine Scrn (>25 NG/ML) < 6.00 Amphetamines Screen (>1000 NG/ML) < 100 U Benzodiazepines Scrn (>200 NG/ML) < 85 Urine Cocaine Screen (>300 NG/ML) < 50 Urine Cannabis Screen (>50 NG/ML) < 5.00 Urines Urinalysis LIGHT H Urine Color (YEL,AMB,STR) STRAW Urine Clarity (CLEAR) HAZY H Urine pH (5.0 - 8.0) 6.0 Ur Specific [place] (1.001 - 1.035) 1.025 Urine Protein (NEG,<30 MG/DL) 100 H Urine Ketones (NEG) NEG Urine Nitrite (NEG) NEG Urine Bilirubin (NEG) NEG Urine Urobilinogen (0.1 - 1.0 EU/dl) 0.2 Ur Leukocyte Esterase (NEG) NEG Ur Microscopic SEDIMENT EXAMINED Urine RBC (0 - 5 /HPF) 3-5 Urine WBC (0 - 2 /HPF) 1-3 H Ur Epithelial Cells (NONE,FEW) FEW Urine Bacteria (NEG/NONE) RARE H Urine Hemoglobin (NEG) SMALL H Urine Glucose (N MG/DL) 250 H 09/21 0225 Blood Gas pH (7.35 - 7.45 PH) 7.33 L pCO2 (35 - 45 TORR) 35 pO2 (80 - 100 TORR) 74 L HCO3 (21 - 28 MEQ/L) 18 L ABG O2 Sat (Measured) (>96.0 %) 93.0 L P-50 (Temp Corrected) N Carboxyhemoglobin (1.5 - 5.0 %) 0.2 L O2 Concentration % 100 Respiration Rate (BPM) 24 O2 Delivery Method VENT Vent Mode A/C Expiratory Pressure (CMH2O/P) 20 Tidal Volume (CC) 600 Miscellaneous Phlebotomy Draw Site RIGHT BRACHIAL Diagnostic Data EKG Results EKG from 0103 showed sinus rhythm with incomplete left bundle branch block and nonspecific ST abnormality EKG at 0841 shows normal sinus rhythm at 71 with left atrial abnormality left anterior fascicular block, LVH, and nonspecific ST abnormal CXR Results 1. The tip of the enteric tube is not optimally visualized, it appears infradiaphragmatic. 2. The tip of the endotracheal tube is located approximately 6.3 cm above the level of the hui. 3. Near diffuse bilateral dense airspace disease, similar to the prior study dated 09/21/2017. Other Results Echocardiogram 09/07/17: Normal size left ventricle. Moderate concentric left ventricular hypertrophy. Normal left ventricular ejection fraction visually estimated at > 55%. Abnormal relaxation filling pattern of the left ventricle for age (stage 1 diastolic dysfunction). Mild left atrial dilatation. Trace mitral regurgitation. Repeat echocardiogram is pending Assessment/Plan Assessment/Plan The patient is a 67-year-old female with history of kidney disease, type 2 diabetes mellitus and chronic HFpEF, presenting with sudden onset respiratory distress secondary to flash pulmonary edema. She was intubated and treated with IV Lasix, and her pulmonary status is significantly improved. She remains intubated. EKG revealed transient incomplete left bundle branch block and nonspecific ST-T abnormality. There is no definite ST elevation. Creatinine is 1.9 which is slightly above the patient's baseline Recommendations: * The patient will be transferred urgently to [facility] for cardiac catheterization and possible revascularization with Dr. Urban * IV heparin per protocol * Aspirin and Plavix have been given. The Plavix may be changed to Brilinta depending on the results of cardiac catheterization * Continue IV nitroglycerin * Continue ventilatory support for now * Risks and benefits of catheterization were discussed with the patient's son and . I explained the risk of worsening renal function secondary to IV contrast with possibility of requiring dialysis. The patient's family understands the risks of the catheterization and wishes to proceed given evidence of acute myocardial infarction Consult Acknowledgment - Thank you for your consult request.
[2017-09-21 10:50] VITALS: BP 160/0
[2017-09-21] MEDS ORDERED: NTG IV (10:53)
--- NOTE | 2017-09-21 11:31 | ECHOCARDIOGRAM REPORT ---
DWAYNE COX Age: 67 : 1950 Gender: F Exam Date: 09/21/2017 09:32 Exam Location: [facility] Ht (in): 65 Wt (lb): 300 BSA: 2.58 BP: 166 / 71 Ordering Physician: Nabila Shannon MD Referring Physician: Nabila Shannon MD Technologist: Pool Veliz [facility] Room Number: 108-1 Indications: Heart failure, unspecified Rhythm: Sinus Technical Quality: Technically difficult study FINDINGS Left Ventricle Normal size left ventricle. Moderate concentric left ventricular hypertrophy. Left ventricular ejection fraction is visually estimated at 40% with apical hypokinesis. Right Ventricle Normal right ventricular size and function. Right Atrium Normal right atrial size. Left Atrium Normal left atrial size. Mitral Valve Moderate mitral annular calcification. Mitral valve thickened. Mild mitral regurgitation. Aortic Valve Diffuse thickening (sclerosis) of the aortic valve cusps without reduced excursion. No aortic stenosis.no aortic regurgitation. Tricuspid Valve Tricuspid valve not well visualized, grossly normal. Pulmonic Valve Pulmonic valve not well visualized, grossly normal. Trace pulmonic regurgitation. Pericardium No pericardial effusion. Great Vessels Normal size aortic root. CONCLUSIONS Normal size left ventricle. Moderate concentric left ventricular hypertrophy. Left ventricular ejection fraction is visually estimated at 40% with apical hypokinesis. Moderate mitral annular calcification. Mild mitral regurgitation. Marshall Aldrich M.D. (Electronically Signed) Final Date: 21 September 2017 11:26 MEASUREMENTS (Male / Female) Normal Values 2D ECHO LV Diastolic Diameter PLAX 4.0 cm 4.2 - 5.9 / 3.9 - 5.3 cm LV Systolic Diameter PLAX 2.9 cm 2.1 - 4.0 cm LV Fractional Shortening PLAX 27.5 % 25 - 46 % LV Ejection Fraction 2D Teich 54.0 % IVS Diastolic Thickness 2.1 cm LVPW Diastolic Thickness 2.0 cm LV Relative Wall Thickness 1.0 LVOT Diameter 2.3 cm Aortic Root Diameter 3.0 cm LA Systolic Diameter LX 4.0 cm 3.0 - 4.0 / 2.7 - 3.8 cm Ascending Aorta Diameter 2.9 cm DOPPLER AV Peak Velocity 109.0 cm/s AV Peak Gradient 4.8 mmHg AV Mean Velocity 77.9 cm/s AV Mean Gradient 3.0 mmHg AV Velocity Time Integral 24.1 cm LVOT Peak Velocity 67.7 cm/s LVOT Peak Gradient 1.8 mmHg LVOT Mean Velocity 40.0 cm/s LVOT Mean Gradient 1.0 mmHg LVOT Velocity Time Integral 19.0 cm LVOT Stroke Volume 78.9 cm AV Area Cont Eq vti 3.3 cm AV Area Cont Eq pk 2.6 cm MV Peak Velocity 139.0 cm/s MV Peak Gradient 7.7 mmHg MV Mean Velocity 63.5 cm/s MV Mean Gradient 2.0 mmHg Mitral E Point Velocity 54.3 cm/s Mitral A Point Velocity 125.0 cm/s Mitral E to A Ratio 0.4 MV PHT Velocity 71.9 cm/s MV Deceleration [place] 304.0 cm/s MV Pressure Half Time 71.0 ms MV Area PHT 3.1 cm MV Deceleration Time 352.0 ms TR Peak Velocity 373.0 cm/s TR Peak Gradient 55.7 mmHg Right Atrial Pressure 10.0 mmHg Pulmonary Artery Systolic Pressure 65.7 mmHg Right Ventricular Systolic Pressure 65.7 mmHg PV Peak Velocity 110.0 cm/s PV Peak Gradient 4.8 mmHg PV Mean Velocity 69.2 cm/s PV Mean Gradient 2.0 mmHg PV Velocity Time Integral 25.9 cm LV E' Lateral Velocity 2.5 cm/s Mitral E to LV E' Lateral Ratio 21.5 LV E' Septal Velocity 2.7 cm/s Mitral E to LV E' Septal Ratio 19.9
--- NOTE | 2017-09-21 23:01 | Event Note ---
Event Note Event Note: Was contacted by Dr. Marrero that patient has positive cultures gram-positive cocci which appeared to be in pairs Called [facility] patient is located in SICU talked to cardio vascular surgery PA and he was informed of the results
== END 2017-09-21 11:15 | disposition short-term general hospital (02) | DRG 280 ==
LOC: ERH 00:36 → CRI 02:57 → ERHI 02:57 → ENRESERV 04:04 → CRI 06:02
PROVIDERS: Emergency Medicine; Physical Medicine & Rehabilitation Pain Medicine
DX: I21.3 ST elevation (STEMI) myocardial infarction of unspecified site (principal); J96.01 Acute respiratory failure with hypoxia; I50.31 Acute diastolic (congestive) heart failure; I13.0 Hypertensive heart and chronic kidney disease with heart failure and stage 1 through stage 4 chronic kidney disease, or unspecified chronic kidney disease; Z68.41 Body mass index [BMI] 40.0-44.9, adult; J44.9 Chronic obstructive pulmonary disease, unspecified; N18.3 Chronic kidney disease, stage 3 (moderate); E11.22 Type 2 diabetes mellitus with diabetic chronic kidney disease; Z79.4 Long term (current) use of insulin; E11.42 Type 2 diabetes mellitus with diabetic polyneuropathy; E11.319 Type 2 diabetes mellitus with unspecified diabetic retinopathy without macular edema; E66.9 Obesity, unspecified
CPT/HCPCS: CCU; 36592; 71045; 80307; 81001; 82436; 87040; 87086; 87147; 93005; 93010; 93306; 94799; J0330; J0610; J0713; J1644; J1815; J1940; J2930; J7060